=== PATIENT | female | born 1960 | race Caucasian/White ===

== ENCOUNTER 2019-10-27 07:51 | Emergency (ER) | payer OTHER, SELFPAY ==
[2019-10-27 08:00] VITALS: BP 153/85; PULSE 71; RESP 20; TEMP 36.8; O2SAT 96
--- NOTE | 2019-10-27 08:35 | ED.SKABFB ---
HPI - Skin/Abscess/Foreign Bdy General Chief complaint: Skin/Abscess/Foreign Body Stated complaint: FEVER BUMP ON SHOULDER History of Present Illness HPI narrative: 59 y.o. c/o bump on her back, onset 5 days ago, getting larger and now itching and tender when pressure is applied. No pain at rest, just annoying; no drainage. No hx of similar bumps in the past or MRSA. Denies feeling a bump in this area in the past. This AM her face feels warm and she has minor nausea. Normal temp. at home. Related Data Home Medications Medication Instructions Recorded Confirmed amlodipine 5 mg PO BID 07/26/19 07/26/19 aspirin 81 mg PO DAILY 07/26/19 07/26/19 atorvastatin 40 mg PO DAILY 07/26/19 07/26/19 escitalopram oxalate 20 mg PO DAILY 07/26/19 07/26/19 isosorbide mononitrate 30 mg PO DAILY 07/26/19 07/26/19 metformin 500 mg PO DAILY 07/26/19 07/26/19 omeprazole 40 mg PO DAILY 07/26/19 07/26/19 Allergies Allergy/AdvReac Type Severity Reaction Status Date / Time celecoxib Allergy Unknown Verified 02/15/14 08:51 Sulfa (Sulfonamide Allergy Unknown Verified 09/04/18 02:14 Antibiotics) Review of Systems Constitutional: Constitutional: Reports no additional constitutional complaints ENT: Comments: denies rhinorhea or sore throat Cardiovascular: Cardiovascular: Denies chest pain Respiratory: Respiratory: Denies cough Gastrointestinal: Gastrointestinal: Denies abdominal pain, Denies diarrhea and Denies vomiting Musculoskeletal: Comments: chronic finger joint, knee and back pain. Nothing new. Integumentary/Breasts: Skin/Breast: Denies rash Neurologic: Comments: no new headaches. 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 Left posterior chest tender 3x2 cm nodule. Minor fluctuance) Full body images: 1. 3/x cm pink, raised area with a peripheral small dimple. Course Course Emergency Course: DDX of abscess vs Ruptured epidermal inclusion cyst was discussed. Patient agreed to having aspiration. Overlying skin test x2 with 1% with epi. ; 18 gauge inserted. Aspirated 0.2 mL of purulence fluid. Discussed option of incision and drainage versus allowing lesion to progress. She opted for the former. See procedure note. 15. Blade used to open a 1.5 cm incision. I entered a fluid pocket. Approximately 0.2 mL of purulent fluid expressed from wound . Fragments of epidermal inclusion cyst wall were identified. Wound was irrigated with 20 mL of saline and a dressing applied. There was minimal Vital Signs Vital signs: Vital Signs Temperature 36.8 C 10/27/19 08:00 Pulse Rate 71 10/27/19 08:00 Respiratory Rate 20 10/27/19 08:00 Blood Pressure 153/85 H 10/27/19 08:00 Pulse Oximetry 96 10/27/19 08:00 Temperature 36.8 C 10/27/19 08:00 Pulse Rate 71 10/27/19 08:00 Respiratory Rate 20 10/27/19 08:00 Blood Pressure 153/85 H 10/27/19 08:00 Pulse Oximetry 96
[2019-10-27] MEDS: ACETAMINOPHEN 325 MG TABLET 650 MG PO (08:42)
[2019-10-27] MEDS: LIDO 1%/EPINEPHRINE 1:100,000 20 ML VIAL INFILTRATE (08:45)
== END 2019-10-27 09:16 | disposition home or self-care (01) ==
LOC: CHSED 07:55
PROVIDERS: Emergency Provider Family Medicine; PCP Physician Assistant
DX: L72.9 Follicular cyst of the skin and subcutaneous tissue, unspecified (principal)
CPT/HCPCS: 10160; 99282; A9270

== ENCOUNTER 2019-11-13 13:47 | Emergency (ER) | payer OTHER, SELFPAY ==
[2019-11-13] VITALS (7 sets, daily range): BP systolic 136–182; BP diastolic 69–86; PULSE 63–94; RESP 14–96; TEMP 36.8–36.9; O2SAT 17–100
--- NOTE | ~2019-11-13 | XR_ITS ---
EXAMINATION: XR shoulder LT min 2V DATE: 11/13/2019 14:54 INDICATION: Left shoulder pain TECHNIQUE: AP internally and externally rotated, AP oblique externally rotated and transscapular Y vi ews of the left shoulder were obtained. COMPARISON: None FINDINGS: Normal alignment. No fracture. Mild glenohumeral osteoarthritis. Acromioclavicular joint is normal. Soft tissues are unremarkable. As well as portions of the lungs are clear. IMPRESSION: Mild glenohumeral osteoarthritis. No acute osseous abnormality. Reviewed, dictated and finalized at location A. BUILDER
--- NOTE | ~2019-11-13 | XR_ITS ---
EXAMINATION:XR cervical spine 4-5V DATE: 11/13/2019 14:54 INDICATION: left-sided neck pain and posterior left shoulder pain. TECHNIQUE: AP, lateral, lateral swimmers and odontoid views of the cervical spine are provided. COMPARISON: Cervical spine MRI dated 06/27/2018 FINDINGS: Alignment is normal. Odontoid is intact. Normal atlantoaxial interval. Vertebral body heights are no rmal. Disc heights are normal. Mild to moderate multilevel cervical facet osteoarthritis. Patient is edentulous. Prevertebral soft tissues are normal. Visualized apices of the lungs are clear. IMPRESSION: 1. Multilevel mild to moderate cervical facet osteoarthritis. Reviewed, dictated and finalized at location A. ICK WORKER
--- NOTE | 2019-11-13 14:01 | ECG_ITS ---
Measurements Intervals [place] Rate: 82 P: 50 MI: 153 QRS: 31 QRSD: 94 T: 50 QT: 396 QTc: 465 Interpretive Statements SINUS RHYTHM DELAYED PRECORDIAL R/S TRANSITION BORDERLINE ECG Electronically Signed On 11-13-2019 14:34:56 [employer] EXPLORATION TECHNICIAN by Medardo Thacker D.O.
--- NOTE | 2019-11-13 14:07 | ED.GENADULT ---
HPI - General Adult General Chief complaint: Extremity Injury, Upper Stated complaint: L shoulder pain Time Seen by Provider: 11/13/19 14:06 Source: patient and RN notes reviewed Mode of arrival: ambulatory Limitations: no limitations History of Present Illness HPI narrative: Pt is a 59 y/o female with a Hx of CAD, who presents to the ED with c/o waxing and waning lt posterior shoulder pain starting 2 days ago. She notes that her pain intermittently aggravates into a sharp pain, and states that her pain radiates down her lt arm as well as into her lt trapezius. Pt notes that she has tried taking Tylenol for her pain, but denies having any relief. She currently denies any CP, cough, rhinorrhea, vomiting, or diarrhea. Pt rates her pain at 4/10 normally, but states that her pain is a 10/10 when it becomes sharp. MD complaint: Shoulder Pain Onset (ago): day(s) (2) Location: left (lt posterior shoulder) Radiation: proximal (lt trapezius) and distal (down lt arm) Quality: sharp Pain Consistency: colicky Relieving factors: none Associated symptoms: denies other symptoms Related Data Home Medications Medication Instructions Recorded Confirmed amlodipine 5 mg PO BID 07/26/19 10/27/19 aspirin 81 mg PO DAILY 07/26/19 10/27/19 atorvastatin 40 mg PO DAILY 07/26/19 10/27/19 escitalopram oxalate 20 mg PO DAILY 07/26/19 10/27/19 isosorbide mononitrate 30 mg PO DAILY 07/26/19 10/27/19 metformin 500 mg PO DAILY 07/26/19 10/27/19 omeprazole 40 mg PO DAILY 07/26/19 10/27/19 Allergies Allergy/AdvReac Type Severity Reaction Status Date / Time celecoxib Allergy Severe Anaphylactic Verified 11/13/19 13:51 Shock Sulfa (Sulfonamide Allergy Severe Anaphylaxis Verified 11/13/19 13:51 Antibiotics) Review of Systems Review of Systems: All systems reviewed & are unremarkable except as noted in HPI and below Constitutional: Constitutional: Denies chills, Denies fever(s), Denies headache(s) and Denies weakness ENT: Denies nasal discharge Cardiovascular: Cardiovascular: Denies chest pain Respiratory: Respiratory: Denies cough and Denies dyspnea Gastrointestinal: Gastrointestinal: Denies abdominal pain, Denies diarrhea, Denies nausea and Denies vomiting Musculoskeletal: Musculoskeletal: Reports arthralgias (lt posterior shoulder pain radiating into lt trapezius and down lt arm) Neurologic: Denies headache(s) and Denies weakness PMFSH Past Medical History Medical History Anxiety Asthma Bronchitis CAD (coronary artery disease) Degenerative arthritis of finger Depression Diabetes 1.5, managed as type 2 GERD (gastroesophageal reflux disease) HLD (hyperlipidemia) Hypertension Pneumonia Spinal stenosis of lumbar region Surgical History Surgical History H/O right wrist surgery History of appendectomy Hx of left knee surgery Social History Social History Smoking status: Current every day smoker Alcohol intake: never 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 identity (if verbalized by the patient): Female Exam Const: General: no acute distress and well developed Orientation/consciousness: oriented to person, oriented to place, oriented to time and patient oriented x3 HENMT: Head: normocephalic Ears: external ears normal General nose exam: Normal external nose present Neck: Neck: normal visual inspection Chest: Chest palpation & inspection: normal inspection of the chest and no tenderness Resp: Effort & Inspection: normal respiratory effort Auscultation: clear to auscultation bilaterally Cardio: Rate: regular rate Rhythm: regular rhythm GI: GI Palp: No abdominal tenderness and Yes Soft to palpation Skin: General skin exam: normal color and turgor normal Neuro: General: oriented to person, oriented to place, oriented to time an
[2019-11-13] MEDS: CYCLOBENZAPRINE HCL 10 MG TABLET PO (14:21)
[2019-11-13 14:39] LABS: Basophils Absolute Auto 0.1 K/mm3 (0.0-0.1); Basophils Percent Auto 0.9 % (0.2-1.2); Eosinophils Absolute Auto 0.1 K/mm3 (0-0.3); Eosinophils Percent Auto 1.3 % (0-4.4); Hematocrit 43.7 % (37.0-47.0); Hemoglobin 14.3 g/dL (12.0-15.0); Immature Granulocyte Absolute 0.02 K/mm3 (0.00-0.031); Immature Granulocyte Percent A 0.2 % (0-0.5); Lymphocytes Absolute Auto 3.88 K/mm3 (0.9-3.2); Lymphocytes Percent Auto 38.3 % (18.3-44.2); Mean Corpuscular HGB Conc 32.7 g/dl (32-36); Mean Corpuscular Hemoglobin 29.1 pg (26-34); Monocytes Absolute Auto 0.8 K/mm3 (0.1-0.6); Monocytes Percent Auto 7.9 % (2.6-8.5); Neutrophils Absolute Auto 5.2 K/mm3 (1.3-6.7); Neutrophils Percent Auto 51.4 % (45.5-73.1); Platelet Count Result 354 k/mm3 (150-375); Red Blood Count 4.91 M/mm3 (4.2-5.4); Red Cell Distribution Width 13.7 % (11.5-14.5); White Blood Count 10.1 K/mm3 (4.5-10.0)
[2019-11-13 14:50] LABS: Blood Urea Nitrogen 13 mg/dL (7-17); Calcium 9.3 mg/dL (8.4-10.2); Carbon Dioxide 26 mmol/L (22-30); Chloride 104 mmol/L (98-107); Estimated CRCL calculation 87 ml/min; Estimated Glomerular Filt Rate > 60; Glucose 245 mg/dL (65-105); Potassium 3.8 mmol/L (3.4-5.0); Sodium 138 mmol/L (137-145)
[2019-11-13 15:02] LABS: Troponin I < 0.012 ng/mL (0.000-0.034)
--- NOTE | 2019-11-13 17:02 | PC.NURSE ---
TECH AT BEDSIDE DRAWING 3 HOUR TROP.
--- NOTE | 2019-11-13 17:34 | PC.NURSE ---
REPORT GIVEN TO RINKU AT THIS TIME WHO HAS ASSUMED PT CARE.
[2019-11-13 17:35] LABS: Troponin I < 0.012 ng/mL (0.000-0.034)
== END 2019-11-13 18:00 | disposition home or self-care (01) ==
PROVIDERS: Emergency Provider Emergency Medicine; PCP Physician Assistant
DX: M25.512 Pain in left shoulder (principal); I25.10 Atherosclerotic heart disease of native coronary artery without angina pectoris; F41.9 Anxiety disorder, unspecified; J45.909 Unspecified asthma, uncomplicated; F32.9 Major depressive disorder, single episode, unspecified; K21.9 Gastro-esophageal reflux disease without esophagitis; E78.5 Hyperlipidemia, unspecified; I10 Essential (primary) hypertension; F17.200 Nicotine dependence, unspecified, uncomplicated; E13.9 Other specified diabetes mellitus without complications; Z79.84 Long term (current) use of oral hypoglycemic drugs; M19.012 Primary osteoarthritis, left shoulder; M47.812 Spondylosis without myelopathy or radiculopathy, cervical region; R94.31 Abnormal electrocardiogram [ECG] [EKG]
CPT/HCPCS: 36415; 72050; 73030; 80048; 84484; 85025; 93005; 99284; A9270

== ENCOUNTER 2020-01-21 12:26 | Emergency (ER) | payer OTHER, SELFPAY ==
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
[2020-01-21 14:44] VITALS: BP 146/72; PULSE 76; RESP 18; TEMP 36.9; O2SAT 97
--- NOTE | 2020-01-21 15:35 | ED.UPPEXIN ---
HPI - Extremity Injury (Upper) General Chief Complaint: Extremity Injury, Upper Stated Complaint: cut first fingers on left & right hand Source: patient Mode of arrival: ambulatory Limitations: no limitations History of Present Illness HPI narrative: this is a 59-year-old female presents after a glass window fell on her finger tips while she was cleaning causing laceration left index finger, there is a abrasion and hematoma on the right index finger patient is up-to-date with her tetanus currently mild discomfort, and this injury occurred earlier today. complaint: injury to: left and right Other Extremity Injury: Bilateral: fingers Handedness: right Place: home Severity: mild Context: direct blow Related Data Home Medications Medication Instructions Recorded Confirmed amlodipine 5 mg PO BID 07/26/19 10/27/19 aspirin 81 mg PO DAILY 07/26/19 10/27/19 atorvastatin 40 mg PO DAILY 07/26/19 10/27/19 escitalopram oxalate 20 mg PO DAILY 07/26/19 10/27/19 isosorbide mononitrate 30 mg PO DAILY 07/26/19 10/27/19 metformin 500 mg PO DAILY 07/26/19 10/27/19 omeprazole 40 mg PO DAILY 07/26/19 10/27/19 Allergies Allergy/AdvReac Type Severity Reaction Status Date / Time celecoxib Allergy Severe Anaphylactic Verified 11/13/19 13:51 Shock Sulfa (Sulfonamide Allergy Severe Anaphylaxis Verified 11/13/19 13:51 Antibiotics) Review of Systems Review of Systems: All systems reviewed & are unremarkable except as noted in HPI and below PMFSH Past Medical History Medical History Anxiety Asthma Bronchitis CAD (coronary artery disease) Degenerative arthritis of finger Depression Diabetes 1.5, managed as type 2 GERD (gastroesophageal reflux disease) HLD (hyperlipidemia) Hypertension Pneumonia Spinal stenosis of lumbar region Surgical History Surgical History H/O right wrist surgery History of appendectomy Hx of left knee surgery Social History Social History Smoking status: Current every day smoker Alcohol intake: never 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 identity (if verbalized by the patient): Female Exam Const: General: no acute distress and alert Orientation/consciousness: patient oriented x3 HENMT: Head: normal to inspection Eyes: Conjunctivae: conjunctivae normal Pupils: Equal, round and reactive pupils present EOM: EOMs intact bilaterally Neck: Neck: normal visual inspection Lymphatic: no lymphadenopathy noted Chest: Chest palpation & inspection: normal inspection of the chest Resp: Effort & Inspection: normal respiratory effort Cardio: Rate: regular rate Rhythm: regular rhythm GI: GI Palp: Yes Soft to palpation : General: Yes no CVA tenderness Skin: Wounds: wounds noted ( Laceration anterior surface of her left index finger) Neuro: General: patient oriented x3 Extrem: General: normal to inspection Psych: Mental Status: mental status grossly normal Course Vital Signs Vital signs: Vital Signs Temperature 36.9 C 01/21/20 14:44 Pulse Rate 76 01/21/20 14:44 Respiratory Rate 18 01/21/20 14:44 Blood Pressure 146/72 H 01/21/20 14:44 Pulse Oximetry 97 01/21/20 14:44 Temperature 36.9 C 01/21/20 14:44 Pulse Rate 76 01/21/20 14:44 Respiratory Rate 18 01/21/20 14:44 Blood Pressure 146/72 H 01/21/20 14:44 Pulse Oximetry 97 01/21/20 14:44 Procedures Laceration Laceration 1: Date: 01/21/20 Time: 15:47 Site: hand Size (cm): 1 Description: linear ====== Skin Level ====== Skin layer closed with: dermabond ====== Subcutaneous Layer ====== ====== Muscle Layer ====== ====== Tendon Layer ====== Critical Care Time Critical Care Time Critical Care Time: No Discharge Plan Di
== END 2020-01-21 16:04 | disposition home or self-care (01) ==
PROVIDERS: Emergency Provider Emergency Medicine; PCP Family Medicine
DX: S61.211A Laceration without foreign body of left index finger without damage to nail, initial encounter (principal); W22.8XXA Striking against or struck by other objects, initial encounter
CPT/HCPCS: 12001; 73120; 99282; 99284

== ENCOUNTER 2020-05-05 23:25 | Emergency (ER) | payer OTHER, SELFPAY ==
--- NOTE | ~2020-05-05 | CT_ITS ---
EXAMINATION: CTA chest PE protocol EXAM DATE: 05/06/2020 01:12 INDICATION: Elevated d-dimer. TECHNIQUE: Spiral CTA of the chest (pulmonary arteries) was performed with 100 cc Omnipaque 350 intr avenous contrast injection. Images were acquired during the pulmonary arterial phase. Coronal maxi mum intensity projection 3D-reconstructions were created by the technologist on dedicated workstation . Axial, coronal and sagittal reformatted images were reviewed. The dose-length product (DLP) for t his examination was 678.25 mGy-cm. The exposure was tailored according to patient size (auto mA exp osure control), and iterative reconstruction (ASIR) was used as additional dose reduction technique. Comparison is made to prior examination from 12/25/2007. FINDINGS: Pulmonary arteries are well opacified and without intraluminal filling defects. No thora cic aortic dissection. Scattered punctate calcified granulomas. There are no pleural or pericardial effusions. Tracheobronchial tree is patent. There is no mediastinal, hilar or axillary lymphaden opathy. There is no pneumothorax. Heart normal in size. Equivocal mild distal esophageal wall glo ma, mild esophagitis. No evidence of coronary arterial calcification. Upper abdomen is unremarkable. There is mild thoracic spondylosis without osteoblastic or osteolytic lesions identified. IMPRESSION: 1. Unremarkable CT pulmonary examination. Reviewed, dictated and finalized at location A.
--- NOTE | ~2020-05-05 | XR_ITS ---
EXAMINATION: XR chest 1V portable EXAM DATE: 05/06/2020 01:12 INDICATION: Shortness of breath. Chest pain. TECHNIQUE: Portable AP frontal chest x-ray was obtained. Comparison is made to prior examination from 07/26/2019. FINDINGS: The lungs are clear. There are no pleural effusions. The cardiomediastinal silhouette is within normal limits. There is no pneumothorax suspected. The bones and soft tissues are unremarkab le. IMPRESSION: No acute cardiopulmonary findings. Reviewed, dictated and finalized at location A.
--- NOTE | 2020-05-05 23:33 | ECG_ITS ---
Measurements Intervals [place] Rate: 72 P: 44 [place]: 168 QRS: 17 QRSD: 87 T: 46 QT: 425 QTc: 468 Interpretive Statements SINUS RHYTHM LOW QRS VOLTAGE IN PRECORDIAL LEADS BORDERLINE ECG Electronically Signed On 05-06-2020 7:43:00 CDT by Medardo Thacker D.O.
[2020-05-05 23:41] VITALS: BP 117/71; PULSE 67; PULSE 68; RESP 20; TEMP 36.8; O2SAT 97
[2020-05-05 23:53] VITALS: BP 137/76; PULSE 85; RESP 20; O2SAT 97
[2020-05-06] MEDS: NITROGLYCERIN SL 0.4 MG TABLET SUBLINGUAL
[2020-05-06 00:03] VITALS: PULSE 72; RESP 20
[2020-05-06] MEDS: IPRATROPIUM 0.5 MG/ALBUTEROL SULFATE 2.5 MG AMPUL.NEB 3 ML INHALATION (00:03)
[2020-05-06 00:11] VITALS: PULSE 78; RESP 20
[2020-05-06 00:13] LABS: Basophils Absolute Auto 0.07 K/mm3 (0.00-0.10); Basophils Percent Auto 0.6 % (0.0-1.0); Eosinophils Percent Auto 1.7 % (1.0-6.0); Hematocrit 40.1 % (35.0-49.0); Immature Granulocyte Absolute 0.03 K/mm3 (0.00-0.00); Immature Granulocyte Percent A 0.3 % (0.0-0.0); Lymphocytes Absolute Auto 4.84 K/mm3 (1.10-4.50); Lymphocytes Percent Auto 41.3 % (18.0-42.0); Mean Corpuscular HGB Conc 32.4 g/dL (32.0-36.0); Mean Corpuscular Hemoglobin 28.7 pg (27.0-31.0); Mean Corpuscular Volume 88.5 fL (78.0-102.0); Mean Platelet Volume 9.8 fl (9.2-11.8); Monocytes Absolute Auto 0.86 K/mm3 (0.10-0.90); Monocytes Percent Auto 7.3 % (2.0-11.0); Neutrophils Absolute Auto 5.7 K/mm3 (1.7-7.2); Neutrophils Percent Auto 48.8 % (50.0-70.0); Platelet Count Result 350 K/mm3 (150-420); Red Blood Count 4.53 M/mm3 (4.20-5.40); Red Cell Distribution Width 13.8 % (11.6-14.4); White Blood Count 11.7 K/mm3 (4.8-10.8)
[2020-05-06 00:27] LABS: Partial Thromboplastin Time 27.3 SEC (22.3-31.6); Prothrombin Time 9.9 Seconds (9.64-11.0)
[2020-05-06 00:30] LABS: Alanine Aminotransferase 17 U/L (14-59); Alkaline Phosphatase 117 U/L (46-116); Anion Gap 9 mmol/L (8-16); Aspartate Amino Transferase 14 U/L (15-37); Bilirubin,Total 0.3 mg/dL (0.00-1.00); Blood Urea Nitrogen 16 mg/dL (7-18); Calcium 8.8 mg/dL (8.5-10.1); Carbon Dioxide 26 mmol/L (21-32); Chloride 102 mmol/L (98-108); Estimated CRCL calculation 61 ml/min; Estimated Glomerular Filt Rate > 60; Glucose 123 mg/dL (70-99); Lipase 94 U/L (73-393); Osmolality Calculated 286 mOsm/kg (285-295); Potassium 3.7 mmol/L (3.5-5.1); Sodium 137 mmol/L (136-145); Total Protein 7.3 g/dL (6.4-8.2)
[2020-05-06 00:33] LABS: BNP 13.1 pg/mL (0-100); Troponin I < 0.02 ng/mL (0.00-0.056)
--- NOTE | 2020-05-06 00:44 | ED.CHESTPAIN ---
HPI - Chest Pain General Chief Complaint: Chest Pain Stated Complaint: Chest Pain Source: patient Mode of arrival: ambulatory Limitations: no limitations History of Present Illness HPI narrative: This is a 59-year-old female that presents with some sharp left-sided chest pain with radiation into her left arm with some some mild dyspnea with no diaphoresis no nausea vomiting started earlier this evening has been episodic and reproducible with chest palpation. The patient denies any coughing no hemoptysis no nausea vomiting no diarrhea constipation no abdominal pain. Patient has a history of CAD, diabetes hyperlipidemia. Patient is a current smoker. MD complaint: chest heaviness Pertinent past history: coronary artery disease Onset (ago): hour(s) Timing of current episode: episodic Prior episodes: Yes Onset: during rest Pain location: left chest Pain radiation: left arm Severity: mild Quality: heaviness Associated symptoms: dyspnea Related Data Home Medications Medication Instructions Recorded Confirmed amlodipine 5 mg PO BID 07/26/19 05/05/20 aspirin 81 mg PO DAILY 07/26/19 05/05/20 atorvastatin 80 mg PO DAILY 07/26/19 05/05/20 escitalopram oxalate 20 mg PO DAILY 07/26/19 05/05/20 isosorbide mononitrate 30 mg PO DAILY 07/26/19 05/05/20 metformin 500 mg PO DAILY 07/26/19 05/05/20 omeprazole 40 mg PO DAILY 07/26/19 05/05/20 Allergies Allergy/AdvReac Type Severity Reaction Status Date / Time celecoxib Allergy Severe Anaphylactic Verified 11/13/19 13:51 Shock Sulfa (Sulfonamide Allergy Severe Anaphylaxis Verified 11/13/19 13:51 Antibiotics) Review of Systems Review of Systems: All systems reviewed & are unremarkable except as noted in HPI and below PMFSH Social History Social History Smoking status: Current every day smoker Alcohol intake: never 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 identity (if verbalized by the patient): Female Exam Const: General: no acute distress Orientation/consciousness: patient oriented x3 HENMT: Head: normal to inspection and contusion Eyes: Conjunctivae: conjunctivae normal Pupils: Equal, round and reactive pupils present EOM: EOMs intact bilaterally Neck: Neck: normal visual inspection, no lymphadenopathy and no meningeal signs Chest: Chest palpation & inspection: normal inspection of the chest Resp: Effort & Inspection: normal respiratory effort Auscultation: clear to auscultation bilaterally Cardio: Rate: regular rate Rhythm: regular rhythm GI: Auscultation: normal bowel sounds : General: Yes no CVA tenderness Back/Spine/Pelvis: Back: no CVA tenderness Skin: General skin exam: normal color Rashes: no rashes Neuro: General: patient oriented x3, moves all extremities and no meningeal signs Extrem: General: normal to inspection and no pedal edema Psych: Appearance: grossly normal Mental Status: mental status grossly normal Thought content: Yes Normal thought content present Course Course Emergency Course: patient reassessed after receiving sublingual nitroglycerin and pain has subsided somewhat with currently no diaphoresis and no shortness of breath. Vital Signs Vital signs: Vital Signs Temperature 36.8 C 05/05/20 23:41 Pulse Rate 68 05/05/20 23:41 Respiratory Rate 20 05/05/20 23:41 Blood Pressure 117/71 05/05/20 23:41 Pulse Oximetry 97 05/05/20 23:41 Temperature 36.8 C 05/05/20 23:41 Pulse Rate 78 05/06/20 00:11 Respiratory Rate 20 05/06/20 00:11 Blood Pressure 137/76 05/05/20 23:53 Pulse Oximetry 97 05/05/20 23:53 MDM - Chest Pain Lab Data Attestation: I reviewed the patient's lab results. Result diagrams: 05/06/20 00:07 05/06/20 00:07 Labs: Lab Results 05/06/20 05/06/20 05/06/20 Range/Units 00:07 00:07 00:07 WBC 11.7 H (4.8-10.8) K/mm3 RBC 4.53 (4.20-5.40)
[2020-05-06 01:12] VITALS: BP 103/56; PULSE 80; RESP 20; O2SAT 97
[2020-05-06 01:35] VITALS: BP 125/67; PULSE 68; RESP 18; TEMP 36.6; O2SAT 98
== END 2020-05-06 01:46 | disposition home or self-care (01) ==
PROVIDERS: Emergency Provider Emergency Medicine; PCP Family Medicine
DX: R07.89 Other chest pain (principal); J18.9 Pneumonia, unspecified organism; R06.00 Dyspnea, unspecified
CPT/HCPCS: 36415; 71045; 71275; 80053; 83690; 83880; 84484; 85025; 85380; 85610; 85730; 93005; 94640; 99284; A9270; Q9965

== ENCOUNTER 2020-05-30 15:15 | Outpatient (CLI) | payer OTHER, SELFPAY ==
--- NOTE | ~2020-05-30 | XR_ITS ---
EXAMINATION: XR foot LT min 3V DATE: 05/30/2020 15:32 INDICATION: Left foot pain TECHNIQUE: Dorsoplantar, lateral, and 2 oblique views of the left foot were obtained. COMPARISON: 06/04/2016 FINDINGS: The bones are osteopenic which limits the sensitivity for fracture however none is seen. Th ere is [id number] polyarticular osteoarthritis of the interphalangeal joints. Bone alignment is normal. A plantar calcaneal enthesophyte is noted. The soft tissues are unremarkable. IMPRESSION: 1. No acute osseous abnormality. Reviewed, dictated and finalized at location A.
== END 2020-05-30 15:16 | disposition home or self-care (01) ==
LOC: CHSIMG 15:18
PROVIDERS: PCP Physician Assistant; Visit Provider Family Medicine
DX: M79.672 Pain in left foot (principal)
CPT/HCPCS: 73630

== ENCOUNTER 2020-07-20 11:03 | Outpatient (CLI) | payer OTHER, SELFPAY ==
[2020-07-21 14:56] LABS: SARS-CoV-2 RNA PCR Negative
== END 2020-07-20 11:04 | disposition home or self-care (01) ==
LOC: CHSLAB 11:06
PROVIDERS: PCP Physician Assistant; Visit Provider Physician Assistant
DX: Z20.828 Contact with and (suspected) exposure to other viral communicable diseases (principal)
CPT/HCPCS: 87635; C9803; U0003

== ENCOUNTER 2020-10-27 10:16 | Outpatient (CLI) | payer OTHER, SELFPAY ==
[2020-10-27 10:29] LABS: Basophils Absolute Auto 0.07 K/mm3 (0.00-0.10); Basophils Percent Auto 0.7 % (0.0-1.0); Eosinophils Absolute Auto 0.09 K/mm3 (0.02-0.50); Eosinophils Percent Auto 0.8 % (1.0-6.0); Hematocrit 45.4 % (35.0-49.0); Hemoglobin 14.8 g/dL (12.0-15.0); Immature Granulocyte Absolute 0.03 K/mm3 (0.00-0.00); Immature Granulocyte Percent A 0.3 % (0.0-0.0); Lymphocytes Absolute Auto 3.69 K/mm3 (1.10-4.50); Lymphocytes Percent Auto 34.7 % (18.0-42.0); Mean Corpuscular HGB Conc 32.6 g/dL (32.0-36.0); Mean Corpuscular Hemoglobin 29.1 pg (27.0-31.0); Mean Corpuscular Volume 89.2 fL (78.0-102.0); Mean Platelet Volume 9.5 fl (9.2-11.8); Monocytes Absolute Auto 0.72 K/mm3 (0.10-0.90); Monocytes Percent Auto 6.8 % (2.0-11.0); Neutrophils Percent Auto 56.7 % (50.0-70.0); Platelet Count Result 346 K/mm3 (150-420); Red Blood Count 5.09 M/mm3 (4.20-5.40); Red Cell Distribution Width 13.8 % (11.6-14.4); White Blood Count 10.6 K/mm3 (4.8-10.8)
[2020-10-27 10:46] LABS: Hemoglobin A1C 6.4 % (<5.7)
[2020-10-27 10:50] LABS: Creatinine Urine 217.46 mg/dL (40-278)
[2020-10-27 10:52] LABS: MALB Creatinine Ratio 131.1 mg/g (0-30); Microalbumin Urine Random 285.1 mg/L
[2020-10-27 11:09] LABS: Alanine Aminotransferase 21 U/L (14-59); Albumin Level 3.5 g/dL (3.4-5.0); Alkaline Phosphatase 130 U/L (46-116); Anion Gap 9 mmol/L (8-16); Aspartate Amino Transferase 12 U/L (15-37); Bilirubin,Total 0.5 mg/dL (0.00-1.00); Blood Urea Nitrogen 10 mg/dL (7-18); Calcium 9.5 mg/dL (8.5-10.1); Carbon Dioxide 28 mmol/L (21-32); Chloride 102 mmol/L (98-108); Cholesterol 184 mg/dL (0-200); Estimated Glomerular Filt Rate > 60; Glucose 141 mg/dL (70-99); HDL Direct 36 mg/dL (40-60); LDL Cholesterol Calculated 115 mg/dL (<130); Osmolality Calculated 289 mOsm/kg (285-295); Potassium 4.8 mmol/L (3.5-5.1); Sodium 139 mmol/L (136-145); Total Protein 7.4 g/dL (6.4-8.2); Triglycerides 166 mg/dL (0-150)
== END 2020-10-27 10:17 | disposition home or self-care (01) ==
LOC: CHSLAB 10:19
PROVIDERS: PCP Nurse Practitioner Family; Visit Provider Nurse Practitioner Family
DX: E11.9 Type 2 diabetes mellitus without complications (principal); I10 Essential (primary) hypertension; E78.5 Hyperlipidemia, unspecified
CPT/HCPCS: 36415; 80053; 80061; 82043; 83036; 85025

== ENCOUNTER 2020-11-01 15:45 | Outpatient (CLI) | payer OTHER, SELFPAY ==
[2020-11-02] LABS: SARS-CoV-2 RNA PCR Negative
== END 2020-11-01 15:46 | disposition home or self-care (01) ==
LOC: CHSLAB 15:49
PROVIDERS: PCP Nurse Practitioner Family; Visit Provider Nurse Practitioner Family
DX: Z20.822 Contact with and (suspected) exposure to COVID-19 (principal)
CPT/HCPCS: C9803; U0003; U0005

== ENCOUNTER 2020-12-19 08:56 | Emergency (ER) | payer OTHER, SELFPAY ==
--- NOTE | ~2020-12-19 | US_ITS ---
EXAMINATION: US venous doppler [facility] DATE: 12/19/2020 09:48 INDICATION: Left lower limb pain. TECHNIQUE: Grayscale ultrasound images without and with compression and Doppler ultrasound images of the bilateral lower extremity veins were obtained. COMPARISON: None. FINDINGS: The visualized portions of right common femoral vein, profunda (deep) femoral vein, femoral vein, pop liteal vein, peroneal veins, posterior tibial veins, and greater saphenous vein outflow are patent. T here is a moderate-sized Saenz's cyst. The visualized portions of left common femoral vein, profunda femoral vein, femoral vein, popliteal v ein, peroneal veins, posterior tibial veins, and greater saphenous vein outflow are patent. There is a small Saenz's cyst. IMPRESSION: 1. No deep venous thrombosis. 2. Moderate-sized right-sided Saenz's cyst. Small left-sided Saenz's cyst. Reviewed, dictated and finalized at location A.
[2020-12-19 09:05] VITALS: BP 155/84; PULSE 73; RESP 20; TEMP 37; O2SAT 95
--- NOTE | 2020-12-19 10:26 | ED.EXTPRO ---
HPI - Extremity Problem General Chief complaint: Extremity Problem,Nontraumatic Stated complaint: LEG PAIN Time Seen by Provider: 12/19/20 09:15 Source: patient Mode of arrival: ambulatory Limitations: no limitations History of Present Illness HPI Narrative: Patient comes in with pain in left knee, moderately severe, sharp, ongoing since early this am. Activity seems to make it more severe. Nothing at home has made this better or worse. Complaint: extremity pain Onset (ago): hour(s) Pain Consistency: constant Location: left (knee) Severity scale (1-10): 5 Quality: sharp Relieving factors: nothing Exacerbating factors: walking Associated symptoms: denies other symptoms Related Data Home Medications Medication Instructions Recorded Confirmed aspirin 81 mg PO DAILY 07/26/19 12/19/20 isosorbide mononitrate 30 mg PO DAILY 07/26/19 12/19/20 metformin 500 mg PO DAILY 07/26/19 12/19/20 Allergies Allergy/AdvReac Type Severity Reaction Status Date / Time celecoxib Allergy Severe Anaphylactic Verified 11/13/19 13:51 Shock Sulfa (Sulfonamide Allergy Severe Anaphylaxis Verified 11/13/19 13:51 Antibiotics) Review of Systems Constitutional: Constitutional: Reports no additional constitutional complaints Eyes: Eyes: Reports no additional eye complaints ENT: Reports system reviewed and no additional complaints, except as documented Cardiovascular: Cardiovascular: Reports no additional cardiovascular complaints Respiratory: Respiratory: Reports no additional respiratory complaints Gastrointestinal: Gastrointestinal: Reports no additional gastrointestinal complaints Genitourinary: Genitourinary: Reports no additional female genitourinary complaints Musculoskeletal: Musculoskeletal: Reports no additional musculoskeletal complaints Integumentary/Breasts: Skin/Breast: Reports system reviewed and no additional complaints, except as docu Neurologic: Reports system reviewed and no additional complaints, except as documented Psychiatric: Psychiatric: Reports no additional psychiatric complaints Endocrine: Endocrine: Reports no additional endocrine complaints Hematologic/Lymphatic: Hematologic/Lymphatic: Reports no additional hematologic/lymphatic complaints Allergic/Immunologic: Allergic/Immunologic: Reports no additional allergic/immunologic complaints [facility] Past Medical History Medical History Anxiety Asthma Bronchitis CAD (coronary artery disease) Degenerative arthritis of finger Depression Diabetes 1.5, managed as type 2 GERD (gastroesophageal reflux disease) HLD (hyperlipidemia) Hypertension Pneumonia Spinal stenosis of lumbar region Surgical History Surgical History H/O right wrist surgery History of appendectomy Hx of left knee surgery Family History Family History (Updated 12/19/20 @ 20:57 by Sadi Vital MD) Mother Family history non-contributory Social History Social History Smoking status: Current every day smoker Alcohol intake: never 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 identity (if verbalized by the patient): Female Exam Const: General: no acute distress Orientation/consciousness: patient oriented x3 HENMT: Head: normal to inspection Ears: external ears normal and TM's normal bilaterally General nose exam: Normal external nose present Mouth: Yes Normal oral and palatal mucosa present Throat: posterior oropharynx normal Eyes: Conjunctivae: conjunctivae normal Neck: Neck: normal visual inspection Chest: Chest palpation & inspection: normal inspection of the chest Resp: Effort & Inspection: normal respiratory effort Auscultation: clear to auscultation bilaterally Cardio: Rate: regular rate Rhythm: regular rhythm GI: GI Palp: Yes Soft to palpation (nontender) Urinar
[2020-12-19 10:40] VITALS: RESP 17
== END 2020-12-19 10:40 | disposition home or self-care (01) ==
PROVIDERS: Emergency Provider Emergency Medicine; PCP Nurse Practitioner Family
DX: M71.22 Synovial cyst of popliteal space [Baker], left knee (principal); M79.605 Pain in left leg; I25.10 Atherosclerotic heart disease of native coronary artery without angina pectoris; K21.9 Gastro-esophageal reflux disease without esophagitis; E78.5 Hyperlipidemia, unspecified; I10 Essential (primary) hypertension; F17.200 Nicotine dependence, unspecified, uncomplicated
CPT/HCPCS: 93970; 99282; 99284

== ENCOUNTER 2020-12-24 18:15 | Emergency (ER) | payer OTHER, SELFPAY ==
[2020-12-24 18:27] VITALS: BP 181/74; PULSE 71; RESP 20; TEMP 36.2; O2SAT 97
--- NOTE | 2020-12-24 18:33 | ED.SKABFB ---
HPI - Skin/Abscess/Foreign Bdy General Chief complaint: Skin/Abscess/Foreign Body Stated complaint: swelling around injection site Time Seen by Provider: 12/24/20 18:25 Source: patient Mode of arrival: ambulatory Limitations: no limitations History of Present Illness HPI narrative: Patient comes in with complaints of swelling in her left arm where she got her Covid shot. She had her Covid shot a few days ago. Since then her arm has been swelled and tender to touch. It has been indurated and somewhat warm to touch, but has had no erythema. Discomfort has been moderately sever in that deltoid, not relieved by tylenol at home. She denies any fever or chills. She comes in because of ongoing discomfort to that deltoid. Related Data Home Medications Medication Instructions Recorded Confirmed isosorbide mononitrate 30 mg PO DAILY 07/26/19 12/19/20 metformin 500 mg PO DAILY 07/26/19 12/19/20 Allergies Allergy/AdvReac Type Severity Reaction Status Date / Time celecoxib Allergy Severe Anaphylactic Verified 12/24/20 18:34 Shock Sulfa (Sulfonamide Allergy Severe Anaphylaxis Verified 12/24/20 18:34 Antibiotics) Review of Systems Constitutional: Constitutional: Reports no additional constitutional complaints Eyes: Eyes: Reports no additional eye complaints ENT: Reports system reviewed and no additional complaints, except as documented Cardiovascular: Cardiovascular: Reports no additional cardiovascular complaints Respiratory: Respiratory: Reports no additional respiratory complaints Gastrointestinal: Gastrointestinal: Reports no additional gastrointestinal complaints Genitourinary: Genitourinary: Reports no additional female genitourinary complaints Musculoskeletal: Musculoskeletal: Reports no additional musculoskeletal complaints Integumentary/Breasts: Skin/Breast: Reports system reviewed and no additional complaints, except as docu Neurologic: Reports system reviewed and no additional complaints, except as documented Psychiatric: Psychiatric: Reports no additional psychiatric complaints Endocrine: Endocrine: Reports no additional endocrine complaints Hematologic/Lymphatic: Hematologic/Lymphatic: Reports no additional hematologic/lymphatic complaints Allergic/Immunologic: Allergic/Immunologic: Reports no additional allergic/immunologic complaints [facility] Past Medical History Medical History Anxiety Asthma Bronchitis CAD (coronary artery disease) Degenerative arthritis of finger Depression Diabetes 1.5, managed as type 2 GERD (gastroesophageal reflux disease) HLD (hyperlipidemia) Hypertension Pneumonia Spinal stenosis of lumbar region Surgical History Surgical History H/O right wrist surgery History of appendectomy Hx of left knee surgery Family History Family History Mother Family history non-contributory Social History Social History Smoking status: Current every day smoker Alcohol intake: never 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 identity (if verbalized by the patient): Female Exam Const: General: no acute distress Orientation/consciousness: patient oriented x3 HENMT: Head: normal to inspection Ears: external ears normal and TM's normal bilaterally Face and sinus: normal facial exam Mouth: Yes Normal oral and palatal mucosa present Throat: posterior oropharynx normal Eyes: Conjunctivae: conjunctivae normal Neck: Neck: normal visual inspection Chest: Chest palpation & inspection: normal inspection of the chest Resp: Effort & Inspection: normal respiratory effort Auscultation: clear to auscultation bilaterally Cardio: Rate: regular rate Rhythm: regular rhythm GI: GI Palp: Yes Soft to palpation (nontender) Back/Spine/Pelvis
== END 2020-12-24 18:47 | disposition home or self-care (01) ==
PROVIDERS: Emergency Provider Emergency Medicine; PCP Nurse Practitioner Family
DX: R60.0 Localized edema (principal); T50.905A Adverse effect of unspecified drugs, medicaments and biological substances, initial encounter
CPT/HCPCS: 99283

== ENCOUNTER 2021-03-25 22:54 | Emergency (ER) | payer SELFPAY ==
[2021-03-25 23:15] VITALS: BP 166/77; PULSE 73; RESP 20; TEMP 37.1; O2SAT 96
[2021-03-25] MEDS: IBUPROFEN 400 MG TABLET 800 MG PO (23:35)
--- NOTE | 2021-03-25 23:35 | ED.NECK ---
HPI - Neck Pain/Injury General Chief Complaint: Neck Pain/Injury Stated Complaint: Bump on back of neck /headache Time Seen by Provider: 03/25/21 23:17 Source: patient Mode of arrival: ambulatory Limitations: no limitations History of Present Illness HPI Narrative: chronic posterior neck bumps, more painful x this PM. no acute redness or drainage MD complaint: neck pain Onset (ago): hour(s) (3) Severity: mild Quality: dull Duration: constant Relieving factors: medication OTC/prescribed Treatments prior to arrival: none Related Data Home Medications Medication Instructions Recorded Confirmed isosorbide mononitrate 30 mg PO DAILY 07/26/19 03/25/21 metformin 500 mg PO DAILY 07/26/19 03/25/21 ezetimibe 10 mg PO DAILY 03/25/21 03/25/21 Allergies Allergy/AdvReac Type Severity Reaction Status Date / Time celecoxib Allergy Severe Anaphylactic Verified 03/14/21 11:32 Shock Sulfa (Sulfonamide Allergy Severe Anaphylaxis Verified 03/14/21 11:32 Antibiotics) Review of Systems Review of Systems: All systems reviewed & are unremarkable except as noted in HPI and below Constitutional: Constitutional: Reports as per HPI and Reports no additional constitutional complaints Eyes: Eyes: Reports as per HPI and Reports no additional eye complaints ENT: Reports system reviewed and no additional complaints, except as documented and Reports as per HPI Cardiovascular: Cardiovascular: Reports as per HPI and Reports no additional cardiovascular complaints Respiratory: Respiratory: Reports as per HPI and Reports no additional respiratory complaints Gastrointestinal: Gastrointestinal: Reports as per HPI and Reports no additional gastrointestinal complaints Genitourinary: Genitourinary: Reports no additional female genitourinary complaints and Reports as per HPI Musculoskeletal: Musculoskeletal: Reports no additional musculoskeletal complaints and Reports as per HPI Integumentary/Breasts: Skin/Breast: Reports system reviewed and no additional complaints, except as docu and Reports as per HPI Neurologic: Reports system reviewed and no additional complaints, except as documented and Reports as per HPI Psychiatric: Psychiatric: Reports no additional psychiatric complaints and Reports as per HPI Endocrine: Endocrine: Reports no additional endocrine complaints and Reports as per HPI Hematologic/Lymphatic: Hematologic/Lymphatic: Reports no additional hematologic/lymphatic complaints and Reports as per HPI Allergic/Immunologic: Allergic/Immunologic: Reports no additional allergic/immunologic complaints and Reports as per HPI [facility] Past Medical History Medical History Anxiety Asthma Bronchitis CAD (coronary artery disease) Degenerative arthritis of finger Depression Diabetes 1.5, managed as type 2 GERD (gastroesophageal reflux disease) HLD (hyperlipidemia) Hypertension Pneumonia Spinal stenosis of lumbar region Surgical History Surgical History H/O right wrist surgery History of appendectomy Hx of left knee surgery Family History Family History Mother Family history non-contributory Social History Social History Smoking status: Current every day smoker Alcohol intake: never 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
[2021-03-25 23:45] VITALS: BP 154/76; PULSE 74; RESP 18; O2SAT 97
== END 2021-03-25 23:52 | disposition home or self-care (01) ==
PROVIDERS: Emergency Provider Emergency Medicine; PCP Nurse Practitioner Family
DX: L72.8 Other follicular cysts of the skin and subcutaneous tissue (principal)
CPT/HCPCS: 99283; A9270

== ENCOUNTER 2021-03-27 12:18 | Outpatient (CLI) | payer SELFPAY ==
--- NOTE | ~2021-03-27 | US_ITS ---
EXAMINATION: US soft tissue head and neck EXAM DATE: 03/27/2021 12:45 INDICATION: [id number] - Cyst of neck. Symptoms 2 weeks. TECHNIQUE: Multiple grayscale and Doppler images of the neck posterior palpable abnormality were obta ined (by a technologist who performed the scan) and subsequently reviewed. There is no prior study f or comparison. FINDINGS: Scanning in the posterior neck area of concern demonstrates a complex cystic subcutaneous region whic h appears to have a thick wall. Could only cystic central component measuring 1.0 x 0.5 x 0.6 cm. The a sebaceous cyst but clinical correlation recommended. No hypervascularity surrounding this. IMPRESSION: Small complex cystic subcutaneous lesion posterior neck area of concern. Could be sebaceo us cyst. Please clinically correlate and clinical follow-up recommended. If this enlarges recommend f ollow-up ultrasound or CT neck with contrast. Reviewed, dictated and finalized at location A. IMPRESSION: Small complex cystic subcutaneous lesion posterior neck area of con cern. Could be sebaceous cyst. Please clinically correlate and clinical follow- up recommended. If this enlarges recommend follow-up ultrasound or CT neck with contrast.
== END 2021-03-27 12:19 | disposition home or self-care (01) ==
LOC: CHSIMG 12:20
PROVIDERS: PCP Nurse Practitioner Family; Visit Provider Nurse Practitioner Family
DX: R22.1 Localized swelling, mass and lump, neck (principal)
CPT/HCPCS: 76536

== ENCOUNTER 2021-04-05 11:29 | Outpatient (CLI) | payer SELFPAY ==
[2021-04-05 11:51] LABS: Hematocrit 45.2 % (35.0-49.0); Hemoglobin 14.5 g/dL (12.0-15.0); Mean Corpuscular HGB Conc 32.1 g/dL (32.0-36.0); Mean Corpuscular Hemoglobin 28.9 pg (27.0-31.0); Mean Corpuscular Volume 90.2 fL (78.0-102.0); Mean Platelet Volume 9.7 fl (9.2-11.8); Platelet Count Result 358 K/mm3 (150-420); Red Blood Count 5.01 M/mm3 (4.20-5.40); Red Cell Distribution Width 13.4 % (11.6-14.4); White Blood Count 11.1 K/mm3 (4.8-10.8)
[2021-04-05 12:29] LABS: Band Neutrophils Percent 0 % (0-6); Eosinophils Absolute Manual 0.11 K/mm3 (0.02-0.5); Eosinophils Percent Manual 1 % (1-6); Lymphocytes Absolute Manual 4.44 K/mm3 (1.1-4.5); Lymphocytes Percent Manual 40 % (18-44); Monocytes Absolute Manual 0.55 K/mm3 (0.1-0.90); Monocytes Percent Manual 5 % (3-9); Neutrophils Absolute Manual 5.99 K/mm3 (1.7-7.2); Neutrophils Percent Manual 54 % (46-73); Platelet Estimate Adequate (Adequate); Total Cells Counted 100
[2021-04-05 12:55] LABS: Hemoglobin A1C 7.9 % (<5.7)
[2021-04-05 12:59] LABS: Alanine Aminotransferase 24 U/L (14-59); Albumin Level 3.5 g/dL (3.4-5.0); Alkaline Phosphatase 124 U/L (46-116); Anion Gap 10 mmol/L (8-16); Aspartate Amino Transferase 14 U/L (15-37); Bilirubin,Total 0.6 mg/dL (0.00-1.00); Blood Urea Nitrogen 13 mg/dL (7-18); Calcium 9.4 mg/dL (8.5-10.1); Carbon Dioxide 27 mmol/L (21-32); Chloride 104 mmol/L (98-108); Estimated Glomerular Filt Rate > 60; Glucose 113 mg/dL (70-99); Osmolality Calculated 293 mOsm/kg (285-295); Potassium 5.1 mmol/L (3.5-5.1); Sodium 141 mmol/L (136-145); Total Protein 7.2 g/dL (6.4-8.2)
== END 2021-04-05 11:30 | disposition home or self-care (01) ==
LOC: CHSLAB 11:33
PROVIDERS: PCP Nurse Practitioner Family; Visit Provider Nurse Practitioner Family
DX: E13.9 Other specified diabetes mellitus without complications (principal); R19.5 Other fecal abnormalities
CPT/HCPCS: 36415; 80053; 83036; 85025

== ENCOUNTER 2021-04-06 08:28 | Outpatient (CLI) | payer SELFPAY | END 2021-04-06 08:29 | disposition home or self-care (01) | LOC: CHSLAB 08:30 | PROVIDERS: PCP Nurse Practitioner Family; Visit Provider Nurse Practitioner Family | DX: R19.5 Other fecal abnormalities (principal) | CPT/HCPCS: 87045; 87046; 87177; 87209; 87427 ==

== ENCOUNTER 2021-04-14 11:08 | Emergency (ER) | payer SELFPAY ==
--- NOTE | ~2021-04-14 | XR_ITS ---
XR shoulder LT min 2V DATE: 04/14/2021 12:24 INDICATION: Left shoulder pain for 2 days. Limited range of motion. No acute injury. TECHNIQUE: 5 views COMPARISON: 11/13/2019 left shoulder FINDINGS: There is moderate left glenohumeral osteoarthritis. Osteopenia. No fracture, dislocation, periosteal reaction or bone destruction or abnormal soft tissue calcificati on of the right shoulder. IMPRESSION: Glenohumeral osteoarthritis Osteopenia Reviewed, dictated and finalized at location B.
[2021-04-14 11:29] VITALS: BP 175/86; PULSE 77; RESP 16; TEMP 36.6; O2SAT 97
--- NOTE | 2021-04-14 11:38 | PC.NURSE ---
Dr santamaria speaking with Dr. Topete o/c ophthalmology at [facility]
--- NOTE | 2021-04-14 11:57 | ED.UPPEXIN ---
HPI - Extremity Injury (Upper) General Chief Complaint: Extremity Injury, Upper Stated Complaint: lt shoulder pain Time Seen by Provider: 04/14/21 11:31 Source: patient and RN notes reviewed Mode of arrival: ambulatory Limitations: no limitations History of Present Illness HPI narrative: sudden left shoulder pain x 2 days. no acute trauma. Onset (ago): day(s) (2) Other Extremity Injury: Left: shoulder Other injuries: none Place: home Severity scale (1-10): 7 Relieving factors: immobilization Exacerbating factors: movement of extremity Associated symptoms: denies other symptoms Related Data Home Medications Medication Instructions Recorded Confirmed isosorbide mononitrate 30 mg PO DAILY 07/26/19 04/14/21 metformin 500 mg PO DAILY 07/26/19 04/14/21 ezetimibe 10 mg PO DAILY 03/25/21 04/14/21 aspirin 81 mg tablet,delayed 81 mg PO DAILY 04/05/21 04/14/21 release Allergies Allergy/AdvReac Type Severity Reaction Status Date / Time celecoxib Allergy Severe Anaphylactic Verified 04/05/21 08:18 Shock Sulfa (Sulfonamide Allergy Severe Anaphylaxis Verified 04/05/21 08:18 Antibiotics) Review of Systems Review of Systems: All systems reviewed & are unremarkable except as noted in HPI and below Constitutional: Constitutional: Reports as per HPI and Reports no additional constitutional complaints Eyes: Eyes: Reports as per HPI and Reports no additional eye complaints ENT: Reports system reviewed and no additional complaints, except as documented and Reports as per HPI Cardiovascular: Cardiovascular: Reports as per HPI and Reports no additional cardiovascular complaints Respiratory: Respiratory: Reports as per HPI and Reports no additional respiratory complaints Gastrointestinal: Gastrointestinal: Reports as per HPI and Reports no additional gastrointestinal complaints Genitourinary: Genitourinary: Reports no additional female genitourinary complaints and Reports as per HPI Musculoskeletal: Musculoskeletal: Reports no additional musculoskeletal complaints, Reports as per HPI and Reports arthralgias Comments: left shoulder pain Integumentary/Breasts: Skin/Breast: Reports system reviewed and no additional complaints, except as docu and Reports as per HPI Neurologic: Reports system reviewed and no additional complaints, except as documented and Reports as per HPI Psychiatric: Psychiatric: Reports no additional psychiatric complaints and Reports as per HPI Endocrine: Endocrine: Reports no additional endocrine complaints and Reports as per HPI Hematologic/Lymphatic: Hematologic/Lymphatic: Reports no additional hematologic/lymphatic complaints and Reports as per HPI Allergic/Immunologic: Allergic/Immunologic: Reports no additional allergic/immunologic complaints and Reports as per HPI [facility] Past Medical History Medical History Anxiety Asthma Bronchitis CAD (coronary artery disease) Degenerative arthritis of finger Depression Diabetes 1.5, managed as type 2 GERD (gastroesophageal reflux disease) HLD (hyperlipidemia) Hypertension Pneumonia Spinal stenosis of lumbar region Surgical History Surgical History H/O right wrist surgery History of appendectomy Hx of left knee surgery Family History Family History Mother Family history non-contributory Social History Social History Smoking status: Current every day smoker Alcohol intake: never 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
[2021-04-14] MEDS: KETOROLAC (*BKC) 60 MG/2 ML VIAL IM (12:22)
[2021-04-14 12:55] VITALS: BP 156/67; PULSE 71; RESP 14; O2SAT 94
== END 2021-04-14 12:59 | disposition home or self-care (01) ==
PROVIDERS: Emergency Provider Emergency Medicine; PCP Nurse Practitioner Family
DX: M13.812 Other specified arthritis, left shoulder (principal)
CPT/HCPCS: 73030; 96372; 99283; A4565; J1885

== ENCOUNTER 2021-05-01 07:59 | Outpatient (RCR) | payer OTHER, SELFPAY ==
--- NOTE | 2021-05-01 09:05 | PTOPEVAL ---
Thank you for referring Vivian Hyde to [facility].? The patient is scheduled to be seen for therapy? ____x/week for ___ weeks. Please review, sign, date and return this plan of care LESLIE. I agree with and certify that the following plan of care is medically necessary. Referring Physician Date Admitting Provider: Attending Provider: Chela Ramsey NP Referring Provider: *PT Outpatient Evaluation Start: 05/01/21 08:02 Freq: Status: Active Protocol: Document 05/01/21 08:02 ACR (Rec: 05/01/21 09:05 ACR [id number]) Therapy Assessment Status Assessment Status Assessment Status Evaluation Outpatient Past Medical History Neurological History Hx Transient Ischemic Attacks (TIA) Yes Cardiovascular History Hx Coronary Artery Disease Yes Hx Hypercholesterolemia Yes Hx Hypertension Yes Gastrointestinal History Hx Appendectomy Yes Musculoskeletal History Hx Arthritis Yes Hx Orthopedic Surgery Yes: knee Endocrine History Hx Diabetes Yes Reproductive History Hx Post Menopausal Yes Psychosocial History Hx Anxiety Yes Evaluation Information Problem Diagnosis L shoulder pain Onset 04/10/21 Subjective Information Patient states that her Query Text:As Reported By Patient/ shoulder started to bother her Family more recently. She states that she is unable to reach out to her side and behind her . She takes tramadol as needed and mainly at night because she is unable to sleep through the night. She states that she occasionally has tingling down the arm. The patient states that she has difficulty with clasping her bra, cleaning, lifting, reaching overhead, and driving. The patient states that her goal for therapy is to be able to use her arm without it hurting . 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
== END 2021-05-05 16:16 | disposition home or self-care (01) ==
LOC: CHSPT 07:59
PROVIDERS: PCP Nurse Practitioner Family; Visit Provider Nurse Practitioner Family
DX: M25.512 Pain in left shoulder (principal); M19.012 Primary osteoarthritis, left shoulder
CPT/HCPCS: 97014; 97110; 97161; G0283

== ENCOUNTER 2021-05-11 14:00 | Outpatient (CLI) | payer OTHER, SELFPAY ==
[2021-05-11 14:40] LABS: SARS-CoV-2 Ag Negative (Negative)
== END 2021-05-11 14:01 | disposition home or self-care (01) ==
LOC: CHSLAB 14:04
PROVIDERS: PCP Nurse Practitioner Family; Visit Provider Nurse Practitioner Family
DX: R53.83 Other fatigue (principal); Z20.822 Contact with and (suspected) exposure to COVID-19
CPT/HCPCS: 87426; C9803

== ENCOUNTER 2021-08-07 00:06 | Emergency (ER) | payer SELFPAY ==
[2021-08-07] VITALS (9 sets, daily range): BP systolic 128–182; BP diastolic 59–97; PULSE 67–87; RESP 15–18; TEMP 36.8; O2SAT 92–97
--- NOTE | ~2021-08-07 | CT_ITS ---
EXAMINATION: CTA chest PE protocol EXAM DATE: 08/07/2021 02:26 INDICATION: Chest heaviness. TECHNIQUE: Spiral CTA of the chest (pulmonary arteries) was performed with 100 cc Omnipaque 350 intr avenous contrast injection. Images were acquired during the pulmonary arterial phase. Coronal maxi mum intensity projection 3D-reconstructions were created by the technologist on dedicated workstation . Axial, coronal and sagittal reformatted images were reviewed. The dose-length product (DLP) for t his examination was 776.20 mGy-cm. The exposure was tailored according to patient size (auto mA exp osure control), and iterative reconstruction (ASIR) was used as additional dose reduction technique. Comparison is made to prior examination from 05/06/2020. FINDINGS: Pulmonary arteries are well opacified and without intraluminal filling defects. No thora cic aortic dissection. There are scattered small calcified granulomata. No suspicious pulmonary nodu les. There are no pleural or pericardial effusions. Tracheobronchial tree is patent. There is no mediastinal, hilar or axillary lymphadenopathy. There is no pneumothorax. Heart normal in size. No evidence of coronary arterial calcification. Upper abdomen is unremarkable. There is mild tho racic spondylosis without osteoblastic or osteolytic lesions identified. IMPRESSION: 1. No pulmonary emboli or acute cardiopulmonary findings. 2. Scattered lung granulomata unchanged. Reviewed, dictated and finalized at location A. ERY INSPECTOR
--- NOTE | 2021-08-07 00:11 | ECG_ITS ---
Measurements Intervals [place] Rate: 85 P: 63 [place]: 160 QRS: 5 QRSD: 90 T: 51 QT: 400 QTc: 477 Interpretive Statements SINUS RHYTHM BORDERLINE R WAVE PROGRESSION, ANTERIOR LEADS BASELINE ARTIFACT- I, II, III, AVR, AVL, AVF BORDERLINE ECG Electronically Signed On 08-07-2021 7:01:03 RESOURCE ANALYST by Medardo Thacker D.O.
--- NOTE | 2021-08-07 00:13 | ED.CHESTPAIN ---
HPI - Chest Pain General Source: patient Mode of arrival: ambulatory Limitations: no limitations History of Present Illness HPI narrative: 60-year-old woman with a history of coronary artery disease, type 2 diabetes, hyperlipidemia and smoking comes in today complaining of 15 minutes of chest pressure. Patient states she was at home and at rest when it started. She denies shortness of breath, nausea, vomiting, lightheadedness, shortness of breath and sweating. Does not radiate to her neck shoulder or back. Patient is also having a pain and itching and a spot in her right upper back or shoulder blade. It has been there for several days. MD complaint: chest pain Pertinent past history: coronary artery disease Onset (ago): minute(s) (15) Timing of current episode: constant Prior episodes: Yes Onset: during rest Pain location: substernal Pain radiation: none Pain scale (0-10): 8 Quality: other (Pressure) Relieving factors: nothing Exacerbating factors: nothing Treatment prior to arrival: none Related Data Home Medications Medication Instructions Recorded Confirmed isosorbide mononitrate 30 mg PO DAILY 07/26/19 08/07/21 ezetimibe 10 mg PO DAILY 03/25/21 08/07/21 aspirin 81 mg tablet,delayed 81 mg PO DAILY 04/05/21 08/07/21 release Allergies Allergy/AdvReac Type Severity Reaction Status Date / Time celecoxib Allergy Severe Anaphylactic Verified 08/08/21 14:30 Shock Sulfa (Sulfonamide Allergy Severe Anaphylaxis Verified 08/08/21 14:30 Antibiotics) Review of Systems Review of Systems: All systems reviewed & are unremarkable except as noted in HPI and below Constitutional: Constitutional: Denies chills and Denies fever(s) ENT: Denies nasal congestion and Denies sore throat Cardiovascular: Cardiovascular: Reports chest pain, Denies rapid heart rate, Denies radiating jaw, neck or arm pain and Denies slow heart rate Respiratory: Respiratory: Denies cough, Denies dyspnea and Denies wheezing Gastrointestinal: Gastrointestinal: Denies nausea and Denies vomiting Musculoskeletal: Musculoskeletal: Denies arthralgias and Denies joint swelling Integumentary/Breasts: Skin/Breast: Reports as per HPI, Reports pruritus, Denies erythema and Denies rash Neurologic: Denies vertigo, Denies dizziness, Denies syncope, Denies numbness and Denies weakness Allergic/Immunologic: Allergic/Immunologic: Denies lip swelling and Denies throat swelling [facility] Past Medical History Medical History Anxiety Asthma Bronchitis CAD (coronary artery disease) Degenerative arthritis of finger Depression Diabetes 1.5, managed as type 2 GERD (gastroesophageal reflux disease) HLD (hyperlipidemia) Hypertension Pneumonia Spinal stenosis of lumbar region Surgical History Surgical History H/O right wrist surgery History of appendectomy Hx of left knee surgery Family History Family History Mother Family history non-contributory Social History Social History Smoking status: Current every day smoker Alcohol intake: never 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 Eyes: Conjunctivae: conjunctivae normal Pupils: Equal, round and reactive pupils present EOM: EOMs intact bilaterally Resp: Effort & Inspection: normal respiratory effort and not labored Auscultation: clear to auscultation bilaterally, no rales, no rhonchi and no wheezes Cardio: Rate: regular rate Rhythm: regular rhythm Heart sounds: no murmurs Skin: General skin exam: normal color, no jaundice and no pallor Rashes: n
[2021-08-07] MEDS: NITROGLYCERIN SL 0.4 MG TABLET SUBLINGUAL ×2 (00:49→01:06)
[2021-08-07] MEDS: ASPIRIN 81 MG CHEWABLE TABLET 243 MG PO (00:49)
[2021-08-07 00:55] LABS: Basophils Absolute Auto 0.08 K/mm3 (0.00-0.10); Basophils Percent Auto 0.7 % (0.0-1.0); Eosinophils Absolute Auto 0.18 K/mm3 (0.02-0.50); Eosinophils Percent Auto 1.5 % (1.0-6.0); Hematocrit 45.6 % (35.0-49.0); Hemoglobin 14.9 g/dL (12.0-15.0); Immature Granulocyte Absolute 0.04 K/mm3 (0.00-0.00); Immature Granulocyte Percent A 0.3 % (0.0-0.0); Lymphocytes Absolute Auto 4.58 K/mm3 (1.10-4.50); Lymphocytes Percent Auto 37.4 % (18.0-42.0); Mean Corpuscular HGB Conc 32.7 g/dL (32.0-36.0); Mean Corpuscular Hemoglobin 29.6 pg (27.0-31.0); Mean Corpuscular Volume 90.7 fL (78.0-102.0); Mean Platelet Volume 9.6 fl (9.2-11.8); Monocytes Absolute Auto 0.86 K/mm3 (0.10-0.90); Neutrophils Absolute Auto 6.5 K/mm3 (1.7-7.2); Neutrophils Percent Auto 53.1 % (50.0-70.0); Platelet Count Result 340 K/mm3 (150-420); Red Blood Count 5.03 M/mm3 (4.20-5.40); Red Cell Distribution Width 13.6 % (11.6-14.4); White Blood Count 12.3 K/mm3 (4.8-10.8)
[2021-08-07] MEDS: PANTOPRAZOLE SODIUM IV 40 MG VIAL IV PUSH (01:01)
[2021-08-07 01:13] LABS: Alanine Aminotransferase 20 U/L (14-59); Albumin Level 3.3 g/dL (3.4-5.0); Alkaline Phosphatase 129 U/L (46-116); Anion Gap 10 mmol/L (8-16); Aspartate Amino Transferase < 10 U/L (15-37); Bilirubin,Total 0.3 mg/dL (0.00-1.00); Blood Urea Nitrogen 10 mg/dL (7-18); Calcium 9.1 mg/dL (8.5-10.1); Carbon Dioxide 29 mmol/L (21-32); Chloride 100 mmol/L (98-108); Estimated CRCL calculation 59 ml/min; Estimated Glomerular Filt Rate > 60; Glucose 155 mg/dL (70-99); Osmolality Calculated 290 mOsm/kg (285-295); Potassium 3.8 mmol/L (3.5-5.1); Sodium 139 mmol/L (136-145); Total Protein 7.6 g/dL (6.4-8.2); Troponin I 8.2 ng/L (0.00-60.4)
[2021-08-07 01:17] LABS: D Dimer 0.62 mg/L (0.19-0.50)
--- NOTE | 2021-08-07 01:25 | PC.NURSE ---
first dose at 0049, chest pain 8/10, second dose at 0106 ,chest pain 6/10. at 0121, cheat pain 3/10, pt refused third does, BP 127/62, hr 85. MD Bhandari updated with pt status
[2021-08-07] MEDS: MORPHINE SULFATE (*CRX) 4 MG/ML INJ IV PUSH (01:32)
--- NOTE | 2021-08-07 02:45 | PC.NURSE ---
Md Bhandari updated with CT chest with contrast results; no new orders at this time.
[2021-08-07 04:03] LABS: Troponin I 8.9 ng/L (0.00-60.4)
--- NOTE | 2021-08-07 04:11 | PC.NURSE ---
second trop result 8.9, Md Bhandari notified; have third trop lab drawn at 6am. updated lab with Md Bhandari's request
[2021-08-07 06:38] LABS: Troponin I 8.6 ng/L (0.00-60.4)
[2021-08-07] MEDS: CLINDAMYCIN HCL 150 MG CAP 300 MG PO (06:42)
== END 2021-08-07 07:01 | disposition home or self-care (01) ==
PROVIDERS: Emergency Provider Emergency Medicine; PCP Nurse Practitioner Family
DX: R07.9 Chest pain, unspecified (principal); L72.3 Sebaceous cyst
CPT/HCPCS: 36415; 71275; 80053; 84484; 85025; 85380; 93005; 96374; 96375; 99283; 99284; A9270; C9113; J2270; Q9967

== ENCOUNTER 2021-09-19 16:19 | Outpatient (CLI) | payer SELFPAY ==
--- NOTE | ~2021-09-19 | XR_ITS ---
EXAMINATION: XR lumbar spine 2-3V DATE: 09/19/2021 17:32 INDICATION: Back pain, history of spinal stenosis TECHNIQUE: Anteroposterior and lateral views of the lumbar spine, and cone-down lateral view of the l umbosacral junction were obtained. COMPARISON: 03/12/2018 FINDINGS: There are 5 mm of anterolisthesis of L4 on L5. Vertebral body alignment is otherwise normal . There is no fracture. The vertebral body heights are maintained. There is mild loss of intervertebr al disc space height at L1-2. There is severe facet osteoarthritis at L4-5 and L5-S1. IMPRESSION: 1. Severe facet osteoarthritis of the lower lumbar spine without significant change. 2. Grade 1 anterolisthesis of L4 on L5. Reviewed, dictated and finalized at location F. N GROWER IMPRESSION: 1. Severe facet osteoarthritis of the lower lumbar spine without significant ch tanya. 2. Grade 1 anterolisthesis of L4 on L5.
== END 2021-09-19 16:20 | disposition home or self-care (01) ==
LOC: CHSLAB 16:23
PROVIDERS: PCP Nurse Practitioner Family; Visit Provider Nurse Practitioner Family
DX: M48.061 Spinal stenosis, lumbar region without neurogenic claudication (principal); M54.9 Dorsalgia, unspecified
CPT/HCPCS: 72100

== ENCOUNTER 2021-11-11 18:52 | Emergency (ER) | payer BC, SELFPAY ==
--- NOTE | 2021-11-11 19:01 | ED.WOUNDLAC ---
HPI - Wound/Laceration General Chief Complaint: Wound/Laceration Stated Complaint: cut on right hand Time Seen by Provider: 11/11/21 19:06 Source: patient Limitations: no limitations History of Present Illness HPI narrative: 62-year-old woman who takes aspirin daily comes in complaining of a laceration on her right index finger that occurred approximately 40 minutes prior to arrival and well using an apple ziggy. She states that she has been holding pressure on it but it continues to bleed. She states she has had a tetanus in the last 5 years. Onset (ago): minute(s) (40) Extremity Location: Right: hand Place: home Patient tetanus UTD: Yes Context: accidental Associated symptoms: other (Persistent bleeding) Related Data Home Medications Medication Instructions Recorded Confirmed aspirin 81 mg tablet,delayed 81 mg PO DAILY 04/05/21 08/07/21 release Allergies Allergy/AdvReac Type Severity Reaction Status Date / Time celecoxib Allergy Severe Anaphylactic Verified 10/18/21 14:56 Shock Sulfa (Sulfonamide Allergy Severe Anaphylaxis Verified 10/18/21 14:56 Antibiotics) Review of Systems Musculoskeletal: Musculoskeletal: Denies arthralgias and Denies joint swelling Integumentary/Breasts: Skin/Breast: Denies pruritus, Denies erythema and Denies rash Hematologic/Lymphatic: Hematologic/Lymphatic: Reports easy bleeding and Reports easy bruising PMFSH Past Medical History Medical History Anxiety Asthma Bronchitis CAD (coronary artery disease) Degenerative arthritis of finger Depression Diabetes 1.5, managed as type 2 GERD (gastroesophageal reflux disease) HLD (hyperlipidemia) Hypertension Pneumonia Spinal stenosis of lumbar region Surgical History Surgical History H/O right wrist surgery History of appendectomy Hx of left knee surgery Family History Family History Mother Family history non-contributory Social History Social History Smoking status: Current every day smoker Alcohol intake: never 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 No active bleeding at this time. Neuro: General: patient oriented x3, moves all extremities, no focal motor deficits and CN's II-XI intact bilaterally Speech: normal speech Gait exam (Neuro): Normal gait present Discharge Plan Discharge Clinical Impression: Finger laceration Qualifiers: Encounter type: initial encounter Finger: index finger Damage to nail status: without damage Foreign body presence: without foreign body Laterality: right Qualified Code(s): S61.210A - Laceration without foreign body of right index finger without damage to nail, initial encounter Condition: Stable Instructions: Laceration (ED) Additional Instructions: Keep the finger elevated and bandaged snugly. Keep the wound clean and dry. Prescriptions: No Action loratadine 10 mg tablet 10 mg PO DAILY PRN (Reason: allergy symptoms) Qty: 30 RF: 0 aspirin [Adult Aspirin Regimen] 81 mg tablet,delayed release (DR/EC) 81 mg PO DAILY RF: 0 diclofenac sodium 50 mg tablet,delayed release (DR/EC) 50 mg PO TID PRN (Reason: pain) Qty: 45 RF: 0 cyclobenzaprine 10 mg ta
[2021-11-11 19:09] VITALS: BP 160/74; PULSE 88; RESP 16; TEMP 36.7; O2SAT 95
--- NOTE | 2021-11-11 19:25 | PC.NURSE ---
Wound cleaned and wrapped dressing applied, distal circulation in tact
[2021-11-11 19:29] VITALS: BP 129/81; PULSE 93; RESP 16
== END 2021-11-11 19:30 | disposition home or self-care (01) ==
PROVIDERS: Emergency Provider Emergency Medicine; PCP Nurse Practitioner Family
DX: S61.210A Laceration without foreign body of right index finger without damage to nail, initial encounter (principal); W45.8XXA Other foreign body or object entering through skin, initial encounter
CPT/HCPCS: 99282

== ENCOUNTER 2021-11-28 15:21 | Outpatient (NON) | payer BC, SELFPAY | END 2021-11-28 15:22 | disposition home or self-care (01) | LOC: CHSLAB 15:22 | PROVIDERS: Visit Provider Nurse Practitioner Family | DX: R30.0 Dysuria (principal) | CPT/HCPCS: 87077; 87086; 87088; 87186 ==

== ENCOUNTER 2021-12-08 11:11 | Outpatient (CLI) | payer BC, SELFPAY ==
--- NOTE | ~2021-12-08 | CT_ITS ---
EXAMINATION: CT abdomen pelvis wo/w con DATE: 12/08/2021 14:08 INDICATION: Left flank pain, microscopic hematuria, dysuria. Right sciatica. TECHNIQUE: Computed tomography (CT) of the abdomen and pelvis was performed without and subsequently with 130 CC Omnipaque 350 intravenous contrast. Automated exposure control and iterative reconstructi on technique were employed. Exam dose: 2385.48 mGy-cm total exam DLP. COMPARISON: 06/29/2017 CT abdomen pelvis with IV contrast material FINDINGS: The lung bases are clear of infiltrate or consolidation. There are scattered calcified pulm onary granulomas. Normal heart size. No pericardial or pleural effusion. The gallbladder is present. No bile duct or pancreatic duct dilatation. There is diffuse hepatic steatosis. No hepatic, splenic, pancreatic, adrenal or renal space-occupying mass lesion is detected. No urinary tract calculus or hydroureteronephrosis. There are shotty nonenlarged periaortic and aortocaval lymph nodes. No intraperitoneal or retroperito monika or pelvic mass lesion or adenopathy or ascites is noted. Mild left colon diverticulosis; no CT evidence of diverticulitis. No bowel obstruction, bowel wall th ickening, pneumatosis or intraperitoneal free air. Operative 4 cm probably calcified fibroid of the left side of the uterus. The urinary bladder is unremarkable, without any filling defect or focal wall thickening.. No bowel obstruction, bowel wall thickening, pneumatosis or intraperitoneal free air. Normal caliber without evidence for scar calcification of the abdominal aorta. No abdominal aortic an eurysm. No intraperitoneal or retroperitoneal or pelvic mass lesion or adenopathy or ascites. Degenerative changes of the included lower thoracic and lumbar spine. This includes degenerative bowman ge of the apophyseal joints of the lower lumbosacral area with associated grade 1 anterolisthesis at L4-5. No suspicious osteolytic or osteoblastic lesions are noted. IMPRESSION: No urinary tract calculus or hydroureteronephrosis. No urinary tract mass lesion is evid ent Hepatic steatosis Impression 4 cm calcified uterine fibroid Diverticulosis of the left colon; no evidence of diverticulitis Reviewed, dictated and finalized at Location A. Reviewed, dictated and finalized at location A. IMPRESSION: No urinary tract calculus or hydroureteronephrosis. No urinary tra ct mass lesion is evident Hepatic steatosis Impression 4 cm calcified uterine fibroid Diverticulosis of the left colon; no evidence of diverticulitis
[2021-12-08 11:43] LABS: Estimated Glomerular Filt Rate > 60
== END 2021-12-08 11:12 | disposition home or self-care (01) ==
LOC: CHSIMG 11:13
PROVIDERS: PCP Nurse Practitioner Family; Visit Provider Nurse Practitioner Family
DX: R31.29 Other microscopic hematuria (principal); R10.9 Unspecified abdominal pain
CPT/HCPCS: 74178; Q9967

== ENCOUNTER 2021-12-17 23:03 | Emergency (ER) | payer BC, SELFPAY ==
[2021-12-17 23:04] VITALS: BP 152/74; PULSE 72; RESP 20; TEMP 36.1; O2SAT 96
--- NOTE | 2021-12-17 23:22 | ED.BACK ---
HPI - Back Pain/Injury General Chief Complaint: Extremity Problem,Nontraumatic Stated Complaint: right buttox pain Time Seen by Provider: 12/17/21 23:23 Source: patient and RN notes reviewed Mode of arrival: ambulatory Limitations: no limitations History of Present Illness MD elicited complaint: back pain Pertinent past history: prior back pain and back surgery Onset (ago): week(s) (4) Timing: progressively worsening (for the last week) Severity: severe Similar Symptoms Previously: Yes Quality: dull, aching and throbbing Location: right lower back Radiation: buttocks Exacerbating factors: sitting upright Relieving factors: none Associated symptoms: parasthesias (right leg intermittent) Work related injury: No Related Data Home Medications Medication Instructions Recorded Confirmed aspirin 81 mg tablet,delayed 81 mg PO DAILY 04/05/21 12/17/21 release ezetimibe 10 mg tablet 10 mg PO DAILY tablet 11/28/21 12/17/21 Allergies Allergy/AdvReac Type Severity Reaction Status Date / Time celecoxib Allergy Severe Anaphylactic Verified 12/17/21 23:16 Shock Sulfa (Sulfonamide Allergy Severe Anaphylaxis Verified 12/17/21 23:16 Antibiotics) Review of Systems Review of Systems: All systems reviewed & are unremarkable except as noted in HPI and below PMFSH Past Medical History Medical History Abscess of back Allergic rhinitis Anxiety Asthma Bronchitis CAD (coronary artery disease) Chest pain Degenerative arthritis of finger Depression Diabetes 1.5, managed as type 2 Exposure to COVID-19 virus GERD (gastroesophageal reflux disease) Green stool HLD (hyperlipidemia) Hypertension Pneumonia Sebaceous cyst Spinal stenosis of lumbar region Surgical History Surgical History H/O right wrist surgery History of appendectomy Hx of left knee surgery Family History Family History Mother Family history non-contributory Social History Social History Smoking status: Current every day smoker Alcohol intake: never 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 identity (if verbalized by the patient): Female Exam Const: General: healthy appearing, no acute distress and alert Nutritional Appearance: well nourished and obese morbidly obese Orientation/consciousness: patient oriented x3 HENMT: Head: normal to inspection Ears: external ears normal Eyes: Conjunctivae: conjunctivae normal Pupils: Equal, round and reactive pupils present EOM: EOMs intact bilaterally Neck: Neck: normal visual inspection Resp: Effort & Inspection: normal respiratory effort Auscultation: clear to auscultation bilaterally Cardio: Rate: regular rate Rhythm: regular rhythm GI: GI Palp: Yes Soft to palpation, No Tenderness to palpation present (GI) and No Guarding due to palpation present (GI) Auscultation: normal bowel sounds Back/Spine/Pelvis: Cervical Spine: cervical ROM normal Thoracic/Lumbar Spine: straight leg raise negative bilaterally and pain with thoraco-lumbar ROM Pelvis: buttock tenderness on the right ( Over the ischial tuberosity) Sacrum: tenderness Skin: General skin exam: normal color Rashes: no rashes Neuro: General: patient oriented x3, moves all extremities, no focal motor deficits and CN's II-XI intact bilaterally Speech: normal speech Gait exam (Neuro): Normal gait present Motor exam (neuro): 5/5 motor strength present throughout Deep tendon reflexes (DTR's): Right patellar reflex intensity grade: 1+, Left patellar reflex intensity grade: 2+, Right ankle reflex intensity grade: 2+ and Left ankle reflex intensity grade: 2+ Course Course Emergency Course: patient improved after Toradol. Strongly recommended to consider physical therapy, possibly see orthope
[2021-12-17] MEDS: KETOROLAC (*BKC) 60 MG/2 ML VIAL IM (23:42)
== END 2021-12-18 00:10 | disposition home or self-care (01) ==
PROVIDERS: Emergency Provider Emergency Medicine; PCP Nurse Practitioner Family
DX: M54.31 Sciatica, right side (principal)
CPT/HCPCS: 96372; 99283; J1885

== ENCOUNTER 2021-12-26 03:20 | Emergency (ER) | payer BC, SELFPAY ==
[2021-12-26 03:20] VITALS: BP 179/82; PULSE 82; RESP 20; TEMP 36.7; O2SAT 98
[2021-12-26] MEDS: KETOROLAC (*BKC) 60 MG/2 ML VIAL IM (03:39)
[2021-12-26 03:56] VITALS: BP 179/82; PULSE 82; RESP 18; TEMP 36.7; O2SAT 98
--- NOTE | 2021-12-26 04:00 | ED.EXTPRO ---
HPI - Extremity Problem General Chief complaint: Extremity Problem,Nontraumatic Stated complaint: leg pain Time Seen by Provider: 12/26/21 03:22 Source: patient and RN notes reviewed Mode of arrival: ambulatory Limitations: no limitations History of Present Illness MD Complaint: extremity pain and joint paint Onset (ago): day(s) (2) Location: right Severity scale (1-10): 8 Quality: aching, dull and other (mild numbness of right buttock to RLE.) Relieving factors: immobilization Exacerbating factors: range of motion and weight bearing Related Data Home Medications Medication Instructions Recorded Confirmed aspirin 81 mg tablet,delayed 81 mg PO DAILY 04/05/21 12/26/21 release ezetimibe 10 mg tablet 10 mg PO DAILY tablet 11/28/21 12/26/21 Allergies Allergy/AdvReac Type Severity Reaction Status Date / Time celecoxib Allergy Severe Anaphylactic Verified 12/17/21 23:16 Shock Sulfa (Sulfonamide Allergy Severe Anaphylaxis Verified 12/17/21 23:16 Antibiotics) Review of Systems Review of Systems: All systems reviewed & are unremarkable except as noted in HPI and below PMFSH Past Medical History Medical History (Updated 12/26/21 @ 07:30 by Shy Lozano MD) Abscess of back Allergic rhinitis Anxiety Asthma Bronchitis CAD (coronary artery disease) Chest pain Degenerative arthritis of finger Depression Diabetes 1.5, managed as type 2 Exposure to COVID-19 virus GERD (gastroesophageal reflux disease) Green stool HLD (hyperlipidemia) Hypertension Pneumonia Sciatica of right side Sebaceous cyst Spinal stenosis of lumbar region Surgical History Surgical History H/O right wrist surgery History of appendectomy Hx of left knee surgery Family History Family History Mother Family history non-contributory Social History Social History Smoking status: Current every day smoker Alcohol intake: never 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 identity (if verbalized by the patient): Female Exam Const: General: no acute distress and alert Nutritional Appearance: obese Orientation/consciousness: patient oriented x3 Limitations: no limitations HENMT: Head: normal to inspection Ears: external ears normal, TM's normal bilaterally and EAC's normal General nose exam: Normal external nose present and Normal nares present Face and sinus: normal facial exam and sinuses nontender Mouth: Yes moist mucous membranes Eyes: Conjunctivae: conjunctivae normal Pupils: Equal, round and reactive pupils present EOM: EOMs intact bilaterally Neck: Neck: normal visual inspection and no lymphadenopathy Chest: Chest palpation & inspection: normal inspection of the chest Resp: Effort & Inspection: normal respiratory effort Auscultation: clear to auscultation bilaterally Cardio: Rate: regular rate Rhythm: regular rhythm GI: GI Palp: Yes Soft to palpation and No Tenderness to palpation present (GI) Auscultation: normal bowel sounds : General: Yes bladder normal to palpation and Yes no CVA tenderness Back/Spine/Pelvis: Back: no CVA tenderness Skin: General skin exam: normal color Rashes: no rashes Neuro: General: patient oriented x3, moves all extremities, no meningeal signs, no focal motor deficits and CN's II-XI intact bilaterally Extrem: General: normal to inspection and no pedal edema Other: minimally tender right buttock on deep palpation. no acute abnormality of the right lower limb Psych: Appearance: grossly normal Mental Status: mental status grossly normal Affect: normal affect and Anxious affect present Attitude: cooperative Thought content: Yes Normal thought content present Course Course Emergency Course: Pt was stable in the ED, less painful Reevaluation(s) Date: 12/26/21 Time: 04:
== END 2021-12-26 04:29 | disposition home or self-care (01) ==
PROVIDERS: Emergency Provider Emergency Medicine; PCP Nurse Practitioner Family
DX: M54.31 Sciatica, right side (principal)
CPT/HCPCS: 96372; 99283; J1885

== ENCOUNTER 2022-01-09 12:33 | Outpatient (CLI) | payer BC, SELFPAY ==
--- NOTE | ~2022-01-09 | US_ITS ---
EXAMINATION: US pelvic complete w TV DATE: 01/09/2022 12:54 INDICATION: Leiomyoma of the uterus TECHNIQUE: Multiple transabdominal and endovaginal sonographic images of the pelvis were obtained. COMPARISON: CT, 12/08/2021 FINDINGS: The uterus measures 5.6 x 3.1 x 3.7 cm. There is an approximately 4.1 x 3.7 x 3.8 cm isoech oic calcified mass in the anterior uterine body which has the appearance of an intramural fibroid. A 1.3 x 1.3 x 1.9 cm isoechoic mass of the right uterine body has the appearance of an intramural fibro id as well. The endometrial complex measures 5 mm. The ovaries are not visualized however no adnexal abnormality is seen. There is no free fluid in the pelvis. IMPRESSION: 1. Uterine fibroids. Reviewed, dictated and finalized at location A. IMPRESSION: 1. Uterine fibroids.
== END 2022-01-09 12:34 | disposition home or self-care (01) ==
LOC: CHSIMG 12:34
PROVIDERS: PCP Nurse Practitioner Family; Visit Provider Student in an Organized Health Care Education/Training Program
DX: D25.9 Leiomyoma of uterus, unspecified (principal)
CPT/HCPCS: 76830; 76856

== ENCOUNTER 2022-01-12 15:18 | Outpatient (CLI) | payer BC, SELFPAY ==
--- NOTE | ~2022-01-12 | XR_ITS ---
XR toe 5th LT min 2V DATE: 01/12/2022 15:56 INDICATION: Injury from fall, right fifth toe pain TECHNIQUE: 4 views COMPARISON: 05/30/2020 left foot FINDINGS: There is a recent fracture of the neck of the proximal phalanx of the fifth toe with minima l displacement or angulation. IMPRESSION: Minimally displaced fracture of the neck of the proximal phalanx of the fifth toe Reviewed, dictated and finalized at location A.
== END 2022-01-12 15:19 | disposition home or self-care (01) ==
LOC: CHSIMG 15:20
PROVIDERS: PCP Nurse Practitioner Family; Visit Provider Nurse Practitioner Family
DX: M79.675 Pain in left toe(s) (principal)
CPT/HCPCS: 73660

== ENCOUNTER 2022-01-13 15:45 | Emergency (ER) | payer BC, SELFPAY ==
[2022-01-13 15:55] VITALS: BP 154/73; PULSE 72; RESP 18; TEMP 36.2; O2SAT 96
--- NOTE | 2022-01-13 15:58 | ED.EXTPRO ---
HPI - Extremity Problem General Stated complaint: left pinky toe pain Time Seen by Provider: 01/13/22 15:48 Source: patient Mode of arrival: ambulatory Limitations: no limitations History of Present Illness HPI Narrative: this is a 61-year-old female presents after her primary ordered an x-ray that was reviewed by the primary shoulder minimally displaced fracture of the distal left 5th toe, did not send any pain medication, and advised patient if the pain persisted to present to the emergency department. The patient currently is having pain with bruising x-ray reviewed from yesterday. Has some limited range of motion secondary to pain swelling and bruising otherwise pedal pulse on the left are all strong and brisk. Complaint: extremity pain Onset (ago): day(s) Pain Consistency: constant Location: left Severity scale (1-10): 8 Quality: other ( left 5th toe) Radiation: proximal Related Data Home Medications Medication Instructions Recorded Confirmed aspirin 81 mg tablet,delayed 81 mg PO DAILY 04/05/21 12/26/21 release ezetimibe 10 mg tablet 10 mg PO DAILY tablet 11/28/21 12/26/21 Allergies Allergy/AdvReac Type Severity Reaction Status Date / Time celecoxib Allergy Severe Anaphylactic Verified 01/12/22 14:42 Shock Sulfa (Sulfonamide Allergy Severe Anaphylaxis Verified 01/12/22 14:42 Antibiotics) Review of Systems Review of Systems: All systems reviewed & are unremarkable except as noted in HPI and below PMFSH Past Medical History Medical History Abscess of back Allergic rhinitis Anxiety Asthma Bronchitis CAD (coronary artery disease) Chest pain Degenerative arthritis of finger Depression Diabetes 1.5, managed as type 2 Exposure to COVID-19 virus GERD (gastroesophageal reflux disease) Green stool HLD (hyperlipidemia) Hypertension Pneumonia Sciatica of right side Sebaceous cyst Spinal stenosis of lumbar region Surgical History Surgical History H/O right wrist surgery History of appendectomy Hx of left knee surgery Family History Family History Mother Diabetes mellitus Hypertension Heart disease History of TIA (transient ischemic attack) Father Diabetes mellitus Sibling Diabetes mellitus Hypertension Heart disease Grandparent Diabetes mellitus Social History Social History Smoking status: Current every day smoker Alcohol intake: never Substance use: never 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 identity (if verbalized by the patient): Female Exam Const: General: no acute distress Orientation/consciousness: patient oriented x3 HENMT: Head: normal to inspection Eyes: Conjunctivae: conjunctivae normal Pupils: Equal, round and reactive pupils present Neck: Neck: normal visual inspection, no lymphadenopathy and no meningeal signs Chest: Chest palpation & inspection: normal inspection of the chest Resp: Effort & Inspection: normal respiratory effort Cardio: Rate: regular rate Rhythm: regular rhythm GI: GI Palp: Yes Soft to palpation Percussion: Yes normal to percussion Urinary Catheter: Urinary Catheter: patent and draining Skin: Other: bruising distal left 5th toe Neuro: General: patient oriented x3 and moves all extremities Extrem: General: normal to inspection Other: pain with palpation and movement of her left 5th toe with bruising and mild swelling Psych: Mental Status: mental status grossly normal Course Course Emergency Course: x-ray reviewed from yesterday will apply emerita-tape patient states that there was a lot of throbbing pain and give the patient 4mg IM morphine. Critical Care Time Critical Care Time Critical Care Time: No Discharge Plan Discharge Clinica
[2022-01-13] MEDS: MORPHINE SULFATE (*CRX) 4 MG/ML INJ IM (16:18)
[2022-01-13 16:26] VITALS: BP 149/68; PULSE 69; RESP 16; O2SAT 97
== END 2022-01-13 16:33 | disposition home or self-care (01) ==
PROVIDERS: Emergency Provider Emergency Medicine; PCP Nurse Practitioner Family
DX: S92.522A Displaced fracture of middle phalanx of left lesser toe(s), initial encounter for closed fracture (principal)
CPT/HCPCS: 96372; 99284; J2270

== ENCOUNTER 2022-01-25 14:19 | Outpatient (CLI) | payer BC, SELFPAY ==
[2022-01-25 14:41] LABS: Hemoglobin 14.4 g/dL (12.0-15.0); Mean Corpuscular HGB Conc 32.7 g/dL (32.0-36.0); Mean Corpuscular Hemoglobin 30.1 pg (27.0-31.0); Mean Corpuscular Volume 91.9 fL (78.0-102.0); Mean Platelet Volume 9.9 fl (9.2-11.8); Platelet Count Result 316 K/mm3 (150-420); Red Blood Count 4.79 M/mm3 (4.20-5.40); Red Cell Distribution Width 13.6 % (11.6-14.4); White Blood Count 10.9 K/mm3 (4.8-10.8)
[2022-01-25 15:18] LABS: Band Neutrophils Percent 0 % (0-6); Eosinophils Percent Manual 1 % (1-6); Lymphocytes Absolute Manual 5.66 K/mm3 (1.1-4.5); Lymphocytes Percent Manual 52 % (18-44); Monocytes Absolute Manual 0.43 K/mm3 (0.1-0.90); Monocytes Percent Manual 4 % (3-9); Neutrophils Absolute Manual 4.68 K/mm3 (1.7-7.2); Neutrophils Percent Manual 43 % (46-73); Total Cells Counted 100
[2022-01-25 15:19] LABS: Platelet Estimate Adequate (Adequate)
[2022-01-26 18:25] LABS: Alanine Aminotransferase 24 U/L (14-59); Albumin Level 3.3 g/dL (3.4-5.0); Alkaline Phosphatase 135 U/L (46-116); Anion Gap 10 mmol/L (8-16); Aspartate Amino Transferase 15 U/L (15-37); Bilirubin,Total 0.4 mg/dL (0.00-1.00); Blood Urea Nitrogen 11 mg/dL (7-18); Carbon Dioxide 24 mmol/L (21-32); Chloride 101 mmol/L (98-108); Cholesterol 175 mg/dL (0-200); Estimated Glomerular Filt Rate > 60; Glucose 166 mg/dL (70-99); HDL Direct 29 mg/dL (40-60); LDL Cholesterol Calculated 83 mg/dL (<130); Osmolality Calculated 283 mOsm/kg (285-295); Potassium 4.1 mmol/L (3.5-5.1); Sodium 135 mmol/L (136-145); Total Protein 7.5 g/dL (6.4-8.2); Triglycerides 316 mg/dL (0-150)
== END 2022-01-25 14:20 | disposition home or self-care (01) ==
LOC: CHSLAB 14:22
PROVIDERS: PCP Nurse Practitioner Family; Visit Provider Nurse Practitioner Family
DX: E13.9 Other specified diabetes mellitus without complications (principal); I10 Essential (primary) hypertension; E78.5 Hyperlipidemia, unspecified
CPT/HCPCS: 36415; 80053; 80061; 83036; 85025

== ENCOUNTER 2022-02-06 13:15 | Outpatient (CLI) | payer BC, SELFPAY ==
--- NOTE | ~2022-02-06 | DEXA_ITS ---
Bone Density Report Name: TRISH PERKINS Age: 61 Sex: Female Ethnicity: White Date of : 1960 Indication: postmenopausal; screening for osteoporosis; height loss; prior fracture; rheumatoid arthritis; Referring Provider: Mallory Villaseñor Study: Bone densitometry was performed. Exam Date: February 06, 2022 Accession number: [id number] Bone Density: Region BMD T-score Z-score Classification AP Spine(L1-L4) 1.046 0.0 1.5 Normal Femoral Neck (Left) 0.755 -0.8 0.5 Normal Total Hip (Left) 0.926 -0.1 0.9 Normal Femoral Neck (Right) 0.875 0.2 1.6 Normal Total Hip (Right) 0.926 -0.1 0.9 Normal Femoral Neck Mean 0.815 -0.3 1.0 Normal Total Hip Mean 0.926 -0.1 0.9 Normal World Health Organization criteria for BMD impression classify patients as: Normal (T-score at or above -1.0), Osteopenia (T-score between -1.0 and -2.5), or Osteoporosis (T-score at or below -2.5). 10-year Fracture Risk: FRAX not reported because: All T-scores for Spine Total, Hip Total, Femoral Neck at or above -1.0 Clinical Information Provided by Patient: Has had a low trauma fracture Smokes Has rheumatoid arthritis Patient maximum height was 63 Menopause Age: 35 No regular weight bearing exercise Does not regularly consume dairy products Drinks caffeinated beverages Onset of menses at age 13 Impression: The patient has normal bone mass. The patient has risk factors, including: smoking, previous fracture. Discussion: BONE DENSITY IS ABOVE THE MINIMUM DESIRABLE LEVEL AT ALL SKELETAL SITES TESTED. This patient?s bone mineral density is above the minimum desirable level (T-score -1.0 or better) at all sites measured. The patient should follow a healthful lifestyle (good nutrition with adequate calcium and vitamin D, and appropriate weight-bearing exercise). Follow-Up: Consider repeating this study in 5 years or sooner if there is some new clinical indication. Reported by: Dr. Dipak Garcia on 02/06/2022 2:00:00 PM. Reviewed, dictated and finalized at location [facility]old[facility]
--- NOTE | ~2022-02-06 | MM_ITS ---
EXAMINATION: MM screening lucius BI w bell HISTORY: Screening mammogram TECHNIQUE: Craniocaudal and mediolateral oblique 3-D tomosynthesis images were obtained and synthetic 2-D images were generated. CAD analysis was submitted and interpreted. COMPARISON: 03/16/2015 bilateral screening mammogram BREAST PARENCHYMAL COMPOSITION: The breasts are almost entirely fatty. FINDINGS: Biopsy marker in the lower mid left breast; history of prior benign left breast biopsy. The re is no evidence of suspicious mass, calcification, or architectural distortion to suggest malignanc y in either breast. There has been no suspicious interval change. IMPRESSION: 1. No mammographic evidence of malignancy. 2. Recommend routine screening mammography in one year. BI-RADS Category 1: Negative Reviewed, dictated and finalized at location A.
== END 2022-02-06 13:16 | disposition home or self-care (01) ==
LOC: CHSIMG 13:20
PROVIDERS: PCP Nurse Practitioner Family; Visit Provider Student in an Organized Health Care Education/Training Program
DX: Z12.31 Encounter for screening mammogram for malignant neoplasm of breast (principal); Z78.0 Asymptomatic menopausal state
CPT/HCPCS: 77063; 77067; 77080

== ENCOUNTER 2022-03-03 07:39 | Outpatient (CLI) | payer BC, SELFPAY ==
--- NOTE | ~2022-03-03 | MR_ITS ---
EXAMINATION: MR lumbar spine wo con DATE: 03/03/2022 09:54 INDICATION: Low back pain disc degeneration . TECHNIQUE: Magnetic resonance imaging (MRI) of the lumbar spine was performed without intravenous con trast. Sequences included sagittal T2-weighted FSE, sagittal T2-weighted FS FSE, sagittal T1-weighted FSE, and axial T2-weighted FSE. COMPARISON: None FINDINGS: The last fully formed and hydrated disc is designated L5-S1. Rudimentary disc between S1 an d S2 and prominent transverse processes versus hypoplastic ribs at L1. 4 mm anterolisthesis of L4 on L5. The marrow signal is benign and homogenous. Conus terminates at L2. Mild disc dehydration at L3-4 through L5-S1. The following disc levels are specifically discussed: T11-T12: Mild diffuse bulge. There is no facet joint osteoarthritis. There is no neural foraminal douglas nosis. There is no central canal stenosis. T12-L1: Moderate diffuse bulge. There is moderate facet joint osteoarthritis. There is no neural fora zenia stenosis. There is no central canal stenosis. L1-L2: Mild diffuse bulge. There is moderate facet joint osteoarthritis. There is no neural foraminal stenosis. There is no central canal stenosis. L2-L3: Mild diffuse bulge. There is moderate facet joint osteoarthritis. There is mild bilateral neur al foraminal stenosis. There is no central canal stenosis. L3-L4: Mild diffuse bulge. There is moderate facet joint osteoarthritis. There is mild bilateral neur al foraminal stenosis. There is no central canal stenosis. L4-L5: Moderate diffuse bulge. There is severe facet joint osteoarthritis. There is moderate left and severe right neural foraminal stenosis. There is severe central canal stenosis. L5-S1: Moderate diffuse bulge. There is severe facet joint osteoarthritis. There is moderate bilatera l neural foraminal stenosis. There is no central canal stenosis. IMPRESSION: 1. Severe central canal and right neural foraminal stenosis at L4-5 caused by combination of a grade 1 anterolisthesis, moderate degenerative disc disease, and severe facet arthropathy. 2. Additional less severe degenerative changes described in detail above. 3. Spinal level numbering anomaly described above. Reviewed, dictated and finalized at location K. IMPRESSION: 1. Severe central canal and right neural foraminal stenosis at L4-5 caused by c ombination of a grade 1 anterolisthesis, moderate degenerative disc disease, an d severe facet arthropathy. 2. Additional less severe degenerative changes described in detail above. 3. Spinal level numbering anomaly described above.
== END 2022-03-03 07:40 | disposition home or self-care (01) ==
LOC: CHSIMG 07:40
PROVIDERS: PCP Nurse Practitioner Family; Visit Provider Physician Assistant
DX: M54.50 Low back pain, unspecified (principal)
CPT/HCPCS: 72148

== ENCOUNTER 2022-04-27 00:13 | Day surgery (SDC) | payer BC, SELFPAY ==
[2022-04-16 14:48] VITALS: BMI 33.5
[2022-04-27 06:19] VITALS: BP 127/78; PULSE 62; RESP 20; TEMP 36.6; O2SAT 97
[2022-04-27 06:25] LABS: Glucose Point of Care 108 mg/dl (65-105)
[2022-04-27] MEDS: LACTATED RINGERS 1,000 ML 150 ML IV CONT (06:36)
--- NOTE | 2022-04-27 07:16 | WPDANESEPPF ---
Anes - Initial Pre Proc Eval Procedure: Operation Date: 04/27/22 07:30 Proposed Procedures p Screening Colonoscopy - Tommy Gabriel MD Date/Time: 04/27/22 07:16 Surgeon: Tommy Gabriel MD Pre Op Diagnosis: neoplasm screening Patient Data Age: 61 Gender: F Height: 1.56 m Weight: 84.7 kg Last Vital Signs Temp 97.9 F 04/27/22 06:19 Pulse 62 04/27/22 06:19 Resp 20 04/27/22 06:19 BP 127/78 04/27/22 06:19 Pulse Ox 97 04/27/22 06:19 O2 Del Method Room Air 04/27/22 06:19 Allergies Allergy/AdvReac Type Severity Reaction Status Date / Time celecoxib Allergy Severe Anaphylactic Verified 04/27/22 06:17 Shock Sulfa (Sulfonamide Allergy Severe Anaphylaxis Verified 04/27/22 06:17 Antibiotics) Home Medications Medication Instructions Recorded Confirmed Type aspirin 81 mg tablet,delayed 81 mg PO DAILY 04/05/21 04/16/22 History release (Adult Aspirin Regimen) loratadine 10 mg tablet 10 mg PO DAILY PRN allergy 10/02/21 04/16/22 Rx symptoms #30 tabs cyclobenzaprine 10 mg tablet 10 mg PO .HS PRN muscle spasm #20 11/28/21 04/16/22 Rx tabs ezetimibe 10 mg tablet 10 mg PO DAILY 11/28/21 04/16/22 History diclofenac potassium 50 mg tablet 50 mg PO DAILY PRN Pain 01/31/22 04/16/22 History dulaglutide 0.75 mg/0.5 mL 0.75 mg (0.5 mL) subcut WEEKLY #2 02/13/22 04/16/22 Rx subcutaneous pen injector mL (Trulicity) escitalopram oxalate 20 mg tablet 20 mg PO DAILY #90 tabs 02/13/22 04/16/22 Rx metformin 500 mg tablet 500 mg PO BID #180 tabs 02/16/22 04/16/22 Rx atorvastatin 80 mg tablet See Rx Instructions .Route 02/22/22 04/16/22 Rx .COMPLEX #90 tabs isosorbide mononitrate 30 mg See Rx Instructions .Route 02/22/22 04/16/22 Rx tablet,extended release 24 hr .COMPLEX #90 tabs fluticasone propionate 50 1 spray intranasal DAILY #9.9 mL 03/07/22 04/16/22 Rx mcg/actuation nasal spray,suspension (Allergy Relief (fluticasone)) tramadol 50 mg tablet 50 mg PO Q6H PRN pain #14 tabs 03/08/22 04/16/22 Rx metoprolol tartrate 50 mg tablet 50 mg PO BID #60 tabs 04/03/22 04/16/22 Rx dulaglutide 0.75 mg/0.5 mL 0.75 mg subcut WEEKLY 04/16/22 04/16/22 History subcutaneous pen injector (Trulicity) triamcinolone acetonide 0.1 % 1 applic topical TID PRN Itching 04/16/22 04/16/22 History topical cream omeprazole 40 mg capsule,delayed See Rx Instructions .Route 04/24/22 04/27/22 Rx release .COMPLEX #30 caps topiramate 25 mg tablet 25 mg PO BID #60 tabs 04/24/22 04/27/22 Rx Laboratory Tests 04/27/22 06:22 POC Capillary Glucose 108 mg/dl H mg/dl (65-105) Patient hx anesthesia problems: none Family hx anesthesia problems: none Results Review: All pre-operative results and documents have been reviewed as part of the pre-operative evaluation. [facility] Past Medical History Medical History Abscess of back Allergic rhinitis Anxiety Asthma Bronchitis CAD (coronary artery disease) Chest pain Degenerative arthritis of finger Depression Diabetes 1.5, managed as type 2 Exposure to COVID-19 virus GERD (gastroesophageal reflux disease) Green stool HLD (hyperlipidemia) Hypertension Pneumonia Sciatica of right side Sebaceous cyst Spinal stenosis of lumbar region Surgical History Surgical History H/O right wrist surgery History of appendectomy Hx of left knee surgery Family History Family History Mother Diabetes mellitus Hypertension Heart disease History of TIA (transient ischemic attack) Father Diabetes mellitus Sibling Diabetes mellitus Hypertension Heart disease Grandparent Diabetes mellitus Social History Social History Smoking packs per day: 1 Smoking cigarettes per day: 20.0 Years smoked: 40
--- NOTE | 2022-04-27 07:25 | PM.HPGS ---
History of Present Illness History of Present Illness Consent: Risks, benefits, and alternatives have been discussed and questions answered. Patient agrees to proceed with procedure. Chief complaint: neoplasm screening Narrative: Vivian Hyde is a 61 year old female here for first screening colonoscopy Review of Systems Constitutional: Constitutional: Denies headache(s) and Denies weakness Eyes: Eyes: Denies blurry vision ENT: Reports Normal hearing present, Denies headache(s) and Denies neck pain Cardiovascular: Cardiovascular: Denies chest pain and Denies dyspnea Respiratory: Respiratory: Denies dyspnea Gastrointestinal: Gastrointestinal: Reports no additional gastrointestinal complaints Genitourinary: Genitourinary: Denies dysuria Musculoskeletal: Musculoskeletal: Denies neck pain Integumentary/Breasts: Skin/Breast: Denies dry skin Neurologic: Reports Normal hearing present, Denies headache(s) and Denies weakness Psychiatric: Psychiatric: Denies anxiety Endocrine: Endocrine: Denies change in body appearance Hematologic/Lymphatic: Hematologic/Lymphatic: Denies easy bleeding Allergic/Immunologic: Allergic/Immunologic: Denies urticaria PMFSH Past Medical History Medical History (Updated 04/27/22 @ 07:26 by Tommy Gabriel MD) Abscess of back Allergic rhinitis Anxiety Asthma Bronchitis CAD (coronary artery disease) Chest pain Colon cancer screening Degenerative arthritis of finger Depression Diabetes 1.5, managed as type 2 Exposure to COVID-19 virus GERD (gastroesophageal reflux disease) Green stool HLD (hyperlipidemia) Hypertension Pneumonia Sciatica of right side Sebaceous cyst Spinal stenosis of lumbar region Surgical History Surgical History H/O right wrist surgery History of appendectomy Hx of left knee surgery Family History Family History Mother Diabetes mellitus Hypertension Heart disease History of TIA (transient ischemic attack) Father Diabetes mellitus Sibling Diabetes mellitus Hypertension Heart disease Grandparent Diabetes mellitus Social History Social History Smoking packs per day: 1 Smoking cigarettes per day: 20.0 Years smoked: 40 Smoking pack-years: 40.00 Smoking status: Current every day smoker Tobacco type: cigarettes Alcohol intake: never Substance use: never Substance use type: does not use Living arrangements: with family 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 identity (if verbalized by the patient): Female Spiritual care concerns: No Meds Home Medications and Allergies Home Medications Medication Instructions Recorded Confirmed Type aspirin 81 mg tablet,delayed 81 mg PO DAILY 04/05/21 04/16/22 History release (Adult Aspirin Regimen) loratadine 10 mg tablet 10 mg PO DAILY PRN allergy 10/02/21 04/16/22 Rx symptoms #30 tabs cyclobenzaprine 10 mg tablet 10 mg PO .HS PRN muscle spasm #20 11/28/21 04/16/22 Rx tabs ezetimibe 10 mg tablet 10 mg PO DAILY 11/28/21 04/16/22 History diclofenac potassium 50 mg tablet 50 mg PO DAILY PRN Pain 01/31/22 04/16/22 History dulaglutide 0.75 mg/0.5 mL 0.75 mg (0.5 mL) subcut WEEKLY #2 02/13/22 04/16/22 Rx subcutaneous pen injector mL (Trulicity) escitalopram oxalate 20 mg tablet 20 mg PO DAILY #90 tabs 02/13/22 04/16/22 Rx metformin 500 mg tablet 500 mg PO BID #180 tabs 02/16/22 04/16/22 Rx atorvastatin 80 mg tablet See Rx Instructions .Route 02/22/22 04/16/22 Rx .COMPLEX #90 tabs isosorbide mononitrate 30 mg See Rx Instructions .Route 02/22/22 04/16/22 Rx tablet,extended release 24 hr .COMPLEX #90 tabs fluticasone propionate 50 1 spray intranasal DAILY #9.9 mL 03/07/22 04/16/22 Rx mcg/actuation nasal spray,suspension (Allergy Relief (flutic
[2022-04-27 07:43] VITALS: BP 96/55; PULSE 76; RESP 15; O2SAT 92
[2022-04-27 07:53] VITALS: BP 119/89; PULSE 70; RESP 20; O2SAT 97
[2022-04-27 08:03] VITALS: BP 130/79; PULSE 67; RESP 20; O2SAT 98
== END 2022-04-27 08:10 | disposition home or self-care (01) ==
PROVIDERS: PCP Family Medicine; Visit Provider Internal Medicine Gastroenterology
PROC: 0DJD8ZZ Inspection of Lower Intestinal Tract, Via Natural or Artificial Opening Endoscopic (ICD-10-PCS; CPT 45378; principal; 2022-04-27 07:30)
DX: Z12.11 Encounter for screening for malignant neoplasm of colon (principal); D12.2 Benign neoplasm of ascending colon; D12.4 Benign neoplasm of descending colon; K64.8 Other hemorrhoids; I25.10 Atherosclerotic heart disease of native coronary artery without angina pectoris; E13.9 Other specified diabetes mellitus without complications; J45.909 Unspecified asthma, uncomplicated; E78.5 Hyperlipidemia, unspecified; F41.9 Anxiety disorder, unspecified; F32.A Depression, unspecified; I10 Essential (primary) hypertension; K21.9 Gastro-esophageal reflux disease without esophagitis; F17.210 Nicotine dependence, cigarettes, uncomplicated; E66.9 Obesity, unspecified; Z68.34 Body mass index [BMI] 34.0-34.9, adult; Z79.82 Long term (current) use of aspirin; Z79.899 Other long term (current) drug therapy; Z79.84 Long term (current) use of oral hypoglycemic drugs
CPT/HCPCS: 45385; 82948; 88305; J2704; J7120

== ENCOUNTER 2022-05-07 11:09 | Outpatient (CLI) | payer BC, SELFPAY ==
--- NOTE | ~2022-05-07 | CT_ITS ---
EXAMINATION: CT lumbar spine wo con DATE: 05/07/2022 11:28 INDICATION: Low back pain. Degenerative disc disease. Radiculopathy. TECHNIQUE: Computed tomography (CT) of the lumbar spine was performed without intravenous contrast. A utomated exposure control and iterative reconstruction technique were employed. The dose-length produ ct was 1307.67 mGy-cm. COMPARISON: Lumbar spine MRI 03/03/2022, chest CT 08/07/2021 FINDINGS: There is 3 degrees levocurvature of lumbar spine. There are 12 pairs of ribs. L5 is a trans itional segment. There is 4 mm anterolisthesis of L3 on L4. There is mild chronic anterior wedging of T11 vertebral body. There is mildly decreased disc height at T11-T12 and L3-L4. The following disc l evels are specifically discussed: L1-L2: The disc is bulging. There is severe right and moderate left facet joint osteoarthritis. There is mild bilateral neural foraminal stenosis. There is mild central canal stenosis. L2-L3: The disc is bulging. There is severe bilateral facet joint osteoarthritis. There is mild bilat eral neural foraminal stenosis. There is mild central canal stenosis. L3-L4: The disc is bulging. There is severe bilateral facet joint osteoarthritis. There is moderate r ight and mild left neural foraminal stenosis. There is moderate central canal stenosis. L4-L5: The disc does not extend beyond the endplate margin. There is severe bilateral facet joint ost eoarthritis. There is mild bilateral neural foraminal stenosis. There is no central canal stenosis. L5-S1: The disc does not extend beyond the endplate margin. There is no facet joint osteoarthritis. T here is no neural foraminal stenosis. There is no central canal stenosis. IMPRESSION: 1. Moderate right neural foraminal stenosis and central canal stenosis at L3-L4. Otherwise mild lumba r spondylosis. Reviewed, dictated and finalized at location A. IMPRESSION: 1. Moderate right neural foraminal stenosis and central canal stenosis at L3-L4 . Otherwise mild lumbar spondylosis.
== END 2022-05-07 11:10 | disposition home or self-care (01) ==
LOC: CHSIMG 11:10
PROVIDERS: PCP Nurse Practitioner Family; Visit Provider Physician Assistant
DX: M54.50 Low back pain, unspecified (principal); M51.36 Other intervertebral disc degeneration, lumbar region; M54.16 Radiculopathy, lumbar region; M43.16 Spondylolisthesis, lumbar region; M48.061 Spinal stenosis, lumbar region without neurogenic claudication
CPT/HCPCS: 72131

== ENCOUNTER 2022-08-27 11:12 | Outpatient (CLI) | payer BC, SELFPAY ==
[2022-08-27 11:28] LABS: Basophils Absolute Auto 0.09 K/mm3 (0.00-0.10); Eosinophils Absolute Auto 0.14 K/mm3 (0.02-0.50); Eosinophils Percent Auto 1.5 % (1.0-6.0); Hematocrit 45.1 % (35.0-49.0); Hemoglobin 14.1 g/dL (12.0-15.0); Immature Granulocyte Absolute 0.02 K/mm3 (0.00-0.00); Immature Granulocyte Percent A 0.2 % (0.0-0.0); Immature Platelet Fraction Pct 4.2 % (1.0-7.0); Lymphocytes Absolute Auto 4.37 K/mm3 (1.10-4.50); Lymphocytes Percent Auto 47.6 % (18.0-42.0); Mean Corpuscular HGB Conc 31.3 g/dL (32.0-36.0); Mean Corpuscular Volume 92.8 fL (78.0-102.0); Mean Platelet Volume 10.6 fl (9.2-11.8); Monocytes Absolute Auto 0.65 K/mm3 (0.10-0.90); Monocytes Percent Auto 7.1 % (2.0-11.0); Neutrophils Absolute Auto 3.9 K/mm3 (1.7-7.2); Neutrophils Percent Auto 42.6 % (50.0-70.0); Platelet Count Result 283 K/mm3 (150-420); Red Blood Count 4.86 M/mm3 (4.20-5.40); Red Cell Distribution Width 13.4 % (11.6-14.4); White Blood Count 9.2 K/mm3 (4.8-10.8)
[2022-08-27 11:48] LABS: Hemoglobin A1C 6.6 % (<5.7)
[2022-08-27 12:51] LABS: Alanine Aminotransferase 18 U/L (14-59); Albumin Level 3.6 g/dL (3.4-5.0); Alkaline Phosphatase 114 U/L (46-116); Anion Gap 11 mmol/L (8-16); Aspartate Amino Transferase 19 U/L (15-37); Bilirubin,Total 0.4 mg/dL (0.00-1.00); Blood Urea Nitrogen 11 mg/dL (7-18); Calcium 9.1 mg/dL (8.5-10.1); Carbon Dioxide 23 mmol/L (21-32); Chloride 106 mmol/L (98-108); Cholesterol 197 mg/dL (0-200); Estimated Glomerular Filt Rate > 60; Glucose 109 mg/dL (70-99); HDL Direct 36 mg/dL (40-60); LDL Cholesterol Calculated 102 mg/dL (<130); Magnesium 1.8 mg/dL (1.8-2.4); Osmolality Calculated 290 mOsm/kg (285-295); Potassium 4.7 mmol/L (3.5-5.1); Sodium 140 mmol/L (136-145); Total Protein 7.3 g/dL (6.4-8.2); Triglycerides 296 mg/dL (0-150)
[2022-08-30 17:06] LABS: Vitamin D 25 Hydroxy 18 ng/mL (30-100)
== END 2022-08-27 11:13 | disposition home or self-care (01) ==
LOC: CHSLAB 11:14
PROVIDERS: PCP Nurse Practitioner Family; Visit Provider Nurse Practitioner Family
DX: E78.5 Hyperlipidemia, unspecified (principal); E13.9 Other specified diabetes mellitus without complications; I10 Essential (primary) hypertension; Z79.899 Other long term (current) drug therapy
CPT/HCPCS: 36415; 80053; 80061; 82306; 83036; 83735; 85025; 85055

== ENCOUNTER 2023-04-08 11:37 | Outpatient (CLI) | payer BC, SELFPAY | END 2023-04-08 11:38 | disposition home or self-care (01) | LOC: CHSIMG 11:39 | PROVIDERS: PCP Nurse Practitioner Family; Visit Provider Nurse Practitioner Family | DX: M79.89 Other specified soft tissue disorders (principal); M79.672 Pain in left foot | CPT/HCPCS: 73630 ==

== ENCOUNTER 2023-04-22 10:09 | Outpatient (CLI) | payer BC, SELFPAY ==
[2023-04-22 11:05] LABS: Basophils Absolute Auto 0.07 K/mm3 (0.00-0.10); Basophils Percent Auto 0.7 % (0.0-1.0); Eosinophils Absolute Auto 0.15 K/mm3 (0.02-0.50); Eosinophils Percent Auto 1.5 % (1.0-6.0); Hemoglobin 13.5 g/dL (12.0-15.0); Immature Granulocyte Absolute 0.05 K/mm3 (0.00-0.00); Immature Granulocyte Percent A 0.5 % (0.0-0.0); Lymphocytes Absolute Auto 3.97 K/mm3 (1.10-4.50); Lymphocytes Percent Auto 39.4 % (18.0-42.0); Mean Corpuscular HGB Conc 32.1 g/dL (32.0-36.0); Mean Corpuscular Hemoglobin 29.5 pg (27.0-31.0); Mean Corpuscular Volume 91.7 fL (78.0-102.0); Neutrophils Absolute Auto 5.2 K/mm3 (1.7-7.2); Neutrophils Percent Auto 51.9 % (50.0-70.0); Platelet Count Result 318 K/mm3 (150-420); Red Blood Count 4.58 M/mm3 (4.20-5.40); Red Cell Distribution Width 14.1 % (11.6-14.4); White Blood Count 10.1 K/mm3 (4.8-10.8)
[2023-04-22 12:05] LABS: Anion Gap 9 mmol/L (8-16); Blood Urea Nitrogen 14 mg/dL (7-18); Carbon Dioxide 27 mmol/L (21-32); Chloride 109 mmol/L (98-108); Estimated Glomerular Filt Rate > 60; Glucose 102 mg/dL (70-99); Osmolality Calculated 300 mOsm/kg (285-295); Potassium 4.7 mmol/L (3.5-5.1); Sodium 145 mmol/L (136-145)
== END 2023-04-22 10:10 | disposition home or self-care (01) ==
LOC: CHSLAB 10:12
PROVIDERS: PCP Nurse Practitioner Family; Visit Provider Internal Medicine Cardiovascular Disease
DX: Z01.812 Encounter for preprocedural laboratory examination (principal); R07.9 Chest pain, unspecified; R94.39 Abnormal result of other cardiovascular function study
CPT/HCPCS: 36415; 80048; 85025

== ENCOUNTER 2023-05-22 15:17 | Outpatient (CLI) | payer BC, SELFPAY ==
--- NOTE | ~2023-05-22 | XR_ITS ---
AP view of the pelvis and AP and lateral views of the right hip Clinical history: Pain Findings: No acute fracture or dislocation is seen. Osseous alignment is anatomic. Bilateral hip and SI joint spaces are preserved. Probable calcified uterine fibroids. Impression: No significant abnormality is seen. Reviewed, dictated and finalized at [facility]. Impression: No significant abnormality is seen.
== END 2023-05-22 15:18 | disposition home or self-care (01) ==
LOC: CHSIMG 15:18
PROVIDERS: PCP Nurse Practitioner Family; Visit Provider Nurse Practitioner Family
DX: M25.551 Pain in right hip (principal)
CPT/HCPCS: 73502

== ENCOUNTER 2023-06-24 15:28 | Outpatient (NON) | payer BC, SELFPAY ==
[2023-06-24 15:37] LABS: Basophils Absolute Auto 0.06 K/mm3 (0.00-0.10); Basophils Percent Auto 0.6 % (0.0-1.0); Eosinophils Absolute Auto 0.13 K/mm3 (0.02-0.50); Eosinophils Percent Auto 1.3 % (1.0-6.0); Hematocrit 42.9 % (35.0-49.0); Hemoglobin 13.7 g/dL (12.0-15.0); Immature Granulocyte Absolute 0.03 K/mm3 (0.00-0.00); Immature Granulocyte Percent A 0.3 % (0.0-0.0); Lymphocytes Absolute Auto 4.09 K/mm3 (1.10-4.50); Lymphocytes Percent Auto 42.4 % (18.0-42.0); Mean Corpuscular HGB Conc 31.9 g/dL (32.0-36.0); Mean Corpuscular Hemoglobin 28.9 pg (27.0-31.0); Mean Corpuscular Volume 90.5 fL (78.0-102.0); Mean Platelet Volume 9.7 fl (9.2-11.8); Monocytes Percent Auto 7.3 % (2.0-11.0); Neutrophils Absolute Auto 4.6 K/mm3 (1.7-7.2); Neutrophils Percent Auto 48.1 % (50.0-70.0); Platelet Count Result 338 K/mm3 (150-420); Red Blood Count 4.74 M/mm3 (4.20-5.40); Red Cell Distribution Width 13.8 % (11.6-14.4); White Blood Count 9.7 K/mm3 (4.8-10.8)
[2023-06-24 15:59] LABS: Hemoglobin A1C 6.7 % (<5.7)
[2023-06-24 16:06] LABS: Alanine Aminotransferase 14 U/L (14-59); Albumin Level 3.3 g/dL (3.4-5.0); Alkaline Phosphatase 112 U/L (46-116); Anion Gap 12 mmol/L (8-16); Aspartate Amino Transferase < 10 U/L (15-37); Bilirubin,Total 0.4 mg/dL (0.00-1.00); Blood Urea Nitrogen 11 mg/dL (7-18); Calcium 9.1 mg/dL (8.5-10.1); Carbon Dioxide 23 mmol/L (21-32); Chloride 106 mmol/L (98-108); Cholesterol 162 mg/dL (0-200); Estimated Glomerular Filt Rate > 60; Glucose 89 mg/dL (70-99); HDL Direct 34 mg/dL (40-60); LDL Cholesterol Calculated 76 mg/dL (<130); Osmolality Calculated 290 mOsm/kg (285-295); Potassium 4.4 mmol/L (3.5-5.1); Sodium 141 mmol/L (136-145); Total Protein 6.8 g/dL (6.4-8.2); Triglycerides 262 mg/dL (0-150)
[2023-06-27 12:35] LABS: Vitamin D 25 Hydroxy 32 ng/mL (30-100)
== END 2023-06-24 15:29 | disposition home or self-care (01) ==
LOC: CHSLAB 15:29
PROVIDERS: Visit Provider Nurse Practitioner Family
DX: E78.5 Hyperlipidemia, unspecified (principal); Z13.6 Encounter for screening for cardiovascular disorders; E13.9 Other specified diabetes mellitus without complications; Z79.899 Other long term (current) drug therapy; I10 Essential (primary) hypertension
CPT/HCPCS: 36415; 80053; 80061; 82306; 83036; 85025

== ENCOUNTER 2023-12-26 11:52 | Outpatient (CLI) | payer OTHER, SELFPAY ==
[2023-12-26 12:09] LABS: Basophils Absolute Auto 0.05 K/mm3 (0.00-0.10); Basophils Percent Auto 0.4 % (0.0-1.0); Eosinophils Absolute Auto 0.15 K/mm3 (0.02-0.50); Eosinophils Percent Auto 1.2 % (1.0-6.0); Hematocrit 43.7 % (35.0-49.0); Hemoglobin 13.9 g/dL (12.0-15.0); Immature Granulocyte Absolute 0.06 K/mm3 (0.00-0.00); Immature Granulocyte Percent A 0.5 % (0.0-0.0); Lymphocytes Absolute Auto 4.03 K/mm3 (1.10-4.50); Lymphocytes Percent Auto 30.9 % (18.0-42.0); Mean Corpuscular HGB Conc 31.8 g/dL (32-36); Mean Corpuscular Hemoglobin 28.4 pg (27.0-31.0); Mean Corpuscular Volume 89.2 fL (78.0-102.0); Mean Platelet Volume 9.4 fl (9.2-11.8); Monocytes Absolute Auto 1.03 K/mm3 (0.10-0.90); Monocytes Percent Auto 7.9 % (2.0-11.0); Neutrophils Absolute Auto 7.72 K/mm3 (1.70-7.20); Neutrophils Percent Auto 59.1 % (50.0-70.0); Platelet Count Result 341 K/mm3 (150-420); Red Cell Distribution Width 14.3 % (11.6-14.4)
[2023-12-26 12:20] LABS: Creatinine Urine 118.25 mg/dL (40-278); MALB Creatinine Ratio 30.1 mg/g (0-30); Microalbumin Urine Random 35.7 mg/L
[2023-12-26 13:00] LABS: Hemoglobin A1C 6.1 % (<5.7)
[2023-12-26 13:53] LABS: Alanine Aminotransferase 19 U/L (14-59); Albumin Level 3.4 g/dL (3.4-5.0); Alkaline Phosphatase 115 U/L (46-116); Anion Gap 7 mmol/L (4-12); Aspartate Amino Transferase 12 U/L (15-37); Bilirubin,Total 0.5 mg/dL (0.00-1.00); Blood Urea Nitrogen 12 mg/dL (7-18); Calcium 9.1 mg/dL (8.5-10.1); Carbon Dioxide 29 mmol/L (21-32); Chloride 105 mmol/L (98-108); Cholesterol 172 mg/dL (0-200); Estimated Glomerular Filt Rate > 60; Glucose 81 mg/dL (70-99); HDL Direct 37 mg/dL (40-60); Iron 27 ug/dL (50-170); LDL Cholesterol Calculated 91 mg/dL (<130); Magnesium 1.7 mg/dL (1.8-2.4); Osmolality Calculated 290 mOsm/kg (285-295); Potassium 4.4 mmol/L (3.5-5.1); Sodium 141 mmol/L (136-145); Triglycerides 222 mg/dL (0-150)
[2023-12-28 03:48] LABS: Vitamin D 25 Hydroxy 44 ng/mL (30-100)
== END 2023-12-26 11:53 | disposition home or self-care (01) ==
LOC: CHSLAB 11:54
PROVIDERS: PCP Nurse Practitioner Family; Visit Provider Nurse Practitioner Family
DX: R53.83 Other fatigue (principal); E13.9 Other specified diabetes mellitus without complications; E78.5 Hyperlipidemia, unspecified; I10 Essential (primary) hypertension; Z79.899 Other long term (current) drug therapy
CPT/HCPCS: 36415; 80053; 80061; 82043; 82306; 83036; 83540; 83735; 85025

== ENCOUNTER 2024-06-17 11:26 | Outpatient (CLI) | payer OTHER, SELFPAY ==
[2024-06-17 11:58] LABS: Basophils Absolute Auto 0.06 K/mm3 (0.00-0.10); Basophils Percent Auto 0.6 % (0.0-1.0); Eosinophils Absolute Auto 0.15 K/mm3 (0.02-0.50); Eosinophils Percent Auto 1.5 % (1.0-6.0); Hematocrit 43.4 % (35.0-49.0); Hemoglobin 14.1 g/dL (12.0-15.0); Immature Granulocyte Absolute 0.05 K/mm3 (0.00-0.00); Immature Granulocyte Percent A 0.5 % (0.0-0.0); Lymphocytes Absolute Auto 3.88 K/mm3 (1.10-4.50); Lymphocytes Percent Auto 37.7 % (18.0-42.0); Mean Corpuscular HGB Conc 32.5 g/dL (32-36); Mean Corpuscular Hemoglobin 29.4 pg (27.0-31.0); Mean Corpuscular Volume 90.4 fL (78.0-102.0); Mean Platelet Volume 9.7 fl (9.2-11.8); Monocytes Absolute Auto 0.69 K/mm3 (0.10-0.90); Monocytes Percent Auto 6.7 % (2.0-11.0); Neutrophils Absolute Auto 5.46 K/mm3 (1.70-7.20); Platelet Count Result 342 K/mm3 (150-420); Red Cell Distribution Width 13.6 % (11.6-14.4); White Blood Count 10.3 K/mm3 (4.8-10.8)
[2024-06-17 12:16] LABS: Hemoglobin A1C 6.2 % (<5.7)
[2024-06-17 12:26] LABS: Alanine Aminotransferase 20 U/L (14-59); Albumin Level 3.2 g/dL (3.4-5.0); Alkaline Phosphatase 112 U/L (46-116); Anion Gap 7 mmol/L (4-12); Aspartate Amino Transferase 10 U/L (15-37); Bilirubin,Total 0.3 mg/dL (0.00-1.00); Blood Urea Nitrogen 13 mg/dL (7-18); Carbon Dioxide 27 mmol/L (21-32); Chloride 107 mmol/L (98-108); Cholesterol 162 mg/dL (0-200); Estimated Glomerular Filt Rate > 60; Glucose 97 mg/dL (70-99); HDL Direct 33 mg/dL (40-60); Iron 54 ug/dL (50-170); LDL Cholesterol Calculated 85 mg/dL (<130); Magnesium 2.1 mg/dL (1.8-2.4); Osmolality Calculated 292 mOsm/kg (285-295); Potassium 4.4 mmol/L (3.5-5.1); Sodium 141 mmol/L (136-145); Total Protein 6.8 g/dL (6.4-8.2); Triglycerides 222 mg/dL (0-150)
[2024-06-18 21:03] LABS: Vitamin D 25 Hydroxy 40 ng/mL (30-100)
== END 2024-06-17 11:27 | disposition home or self-care (01) ==
PROVIDERS: PCP Nurse Practitioner Family; Visit Provider Nurse Practitioner Family
DX: D64.9 Anemia, unspecified (principal); E78.5 Hyperlipidemia, unspecified; Z13.6 Encounter for screening for cardiovascular disorders; E13.9 Other specified diabetes mellitus without complications; E11.9 Type 2 diabetes mellitus without complications; Z79.899 Other long term (current) drug therapy; E83.42 Hypomagnesemia; I10 Essential (primary) hypertension
CPT/HCPCS: 36415; 80053; 80061; 82306; 83036; 83540; 83735; 85025

== ENCOUNTER 2024-11-26 11:46 | Outpatient (CLI) | payer OTHER, SELFPAY ==
--- NOTE | 2024-11-26 11:58 | ECG_ITS ---
Test Date: 2024-11-26 12:10:07 Measurements Intervals Goff Rate: 61 P: 66 ND: 190 QRS: 70 QRSD: 86 T: 82 QT: 452 QTc: 456 Interpretive Statements SINUS RHYTHM LOW QRS VOLTAGE IN PRECORDIAL LEADS [QRS DEFLECTION < 1.0 mV IN CHEST LEADS] No previous ECG available for comparison Electronically Signed On 11-26-2024 12:13:47 CDT by Baltazar Fisher M.D.
[2024-11-26 12:01] LABS: Basophils Absolute Auto 0.06 K/mm3 (0.00-0.10); Basophils Percent Auto 0.5 % (0.0-1.0); Eosinophils Absolute Auto 0.12 K/mm3 (0.02-0.50); Eosinophils Percent Auto 1.1 % (1.0-6.0); Hematocrit 49.3 % (35.0-49.0); Hemoglobin 15.6 g/dL (12.0-15.0); Immature Granulocyte Absolute 0.04 K/mm3 (0.00-0.00); Immature Granulocyte Percent A 0.4 % (0.0-0.0); Lymphocytes Absolute Auto 3.39 K/mm3 (1.10-4.50); Lymphocytes Percent Auto 29.9 % (18.0-42.0); Mean Corpuscular HGB Conc 31.6 g/dL (32-36); Mean Corpuscular Volume 91.6 fL (78.0-102.0); Mean Platelet Volume 9.5 fl (9.2-11.8); Monocytes Absolute Auto 0.76 K/mm3 (0.10-0.90); Monocytes Percent Auto 6.7 % (2.0-11.0); Neutrophils Absolute Auto 6.96 K/mm3 (1.70-7.20); Neutrophils Percent Auto 61.4 % (50.0-70.0); Platelet Count Result 383 K/mm3 (150-420); Red Blood Count 5.38 M/mm3 (4.20-5.40); Red Cell Distribution Width 13.9 % (11.6-14.4); White Blood Count 11.3 K/mm3 (4.8-10.8)
[2024-11-26 12:15] LABS: Hemoglobin A1C 6.5 % (<5.7)
--- OUTSIDE RECORDS SUMMARY | 2024-11-26 12:34 | XMS_ITS | Referral Summary ---
Author Organization [facility] Address [address] [place] [id number] Care Team Providers Care Stucco Worker Name Role Phone Galina LORENZO MD, David Singh Unavailable [phone] Marjan Robertson MD Unavailable [phone] Dangelo Brock MD Unavailable Ag Roblero MD, Chepe Meyers Unavailable [phone] Lana Bailey NP Primary Care Provider [phone] Encounters Date Type Department Care Team Description 08/31/2024 Telephone [facility] Medical Group Cardiology [address] [place] [address] Marjan Robertson MD PA for Repatha from Last 3 Months Allergies Active Allergy Reactions Criticality Noted Date Comments Celecoxib Swelling Medium 02/09/2018 Sulfa (Sulfonamide Antibiotics) Swelling Medium 11/2017 Medications metFORMIN (GLUCOPHAGE) 500 mg tablet Take 1 tablet (500 mg total) by mouth 2 (two) times a day with meals Active fexofenadine (BENNIE) 180 mg tablet Take 1 tablet (180 mg total) by mouth daily as needed Active omeprazole (PriLOSEC) 40 mg capsule Take 1 capsule (40 mg total) by mouth daily Active atorvastatin (LIPITOR) 80 mg tablet Take 1 tablet (80 mg total) by mouth nightly 30 tablet 04/28/20 19 05/06/ 029 Active aspirin 81 mg enteric coated tablet Take 1 tablet (81 mg total) by mouth daily Active escitalopram (LEXAPRO) 20 mg tablet Take 1 tablet (20 mg total) by mouth daily Active metoprolol tartrate (LOPRESSOR) 25 mg immediate release tablet Take 1 tablet (25 mg total) by mouth 2 (two) times a day 60 tablet 11 09/04/[address] (VOLTAREN) 50 mg EC tablet Take 1 tablet (50 mg total) by mouth 2 (two) times a day as needed Active cyclobenzaprine (FLEXERIL) 10 mg tablet Take 1 tablet (10 mg total) by mouth 3 (three) times a day as needed for muscle spasms Active Trulicity 0.75 mg/0.5 mL pen injector ADMINISTER 0.75 MG UNDER THE SKIN WEEKLY 08/15/20 22 Active varenicline tartrate (CHANTIX ALONSO) 0.5 mg (11)- 1 mg (42) tabletIndications: Tobacco abuse counseling Take 0.5mg daily for 3 days, then 0.5mg bid for three days then 1 mg bid after that. 52 tablet 1 03/18/20 23 Active Additional Information Patient not taking.Reported on 08/26/2024 topiramate (TOPAMAX) 25 mg tablet Take 1 tablet (25 mg total) by mouth 2 (two) times a day 03/21/20 23 Active albuterol HFA (PROVENTIL HFA,VENTOLIN HFA,PROAIR HFA) 90 mcg/actuation inhaler Inhale 1 puff every 4 (four) hours as needed 01/26/20 23 Active ezetimibe (ZETIA) 10 mg tabletIndications: Coronary artery disease involving [place]apache coronary artery of [place]apache heart,Dyslipidemia Take 1 tablet by mouth once daily 90 tablet 06/22/20 24 Active Aimovig Autoinjector 70 mg/mL auto-injector subcutaneous injection INJECT 1 SUBCUTANEOUSLY ONCE EVERY MONTH 08/03/20 24 Active FeroSuL 325 mg (65 mg iron) tablet Take 1 tablet (325 mg total) by mouth daily 08/23/20 24 Active ipratropium-albute roL (DUO-NEB) 0.5-2.5 mg/3 mL nebulizer solution 07/23/20 24 Active cholecalciferol (Vitamin D3) 2000 unit tablet Active magnesium chloride 64 mg of elemental magnesium delayed release tabletIndications: hypomagnesemia Take 1 tablet (64 mg of elemental magnesium total) by mouth Active isosorbide mononitrate ER (IMDUR) 30 mg 24 hr tablet Take 1 tablet (30 mg total) by mouth daily 30 tablet 3 08/26/20 24 Active losartan (COZAAR) 25 mg tabletIndications: Essential hypertension Take 1 tablet by mouth once daily 270 tablet 08/27/20 24 Active evolocumab (Repatha SureClick) 140 mg/mL pen injectorIndication s:Coronary artery disease involving [place]apache coronary artery of [place]apache heart, unspecified whether angina present,Mixed hyperlipidemia Inject 1 mL (140 mg total) under the skin every 14 (fourteen) days 2 mL 11 09/11/19 25 Active Active Problems Problem Noted Date Diagnosed Date Abnormal cardiovascular stress test 04/03/2023 Left-sided weakness 04/27/2019 Tingling in left arm 04/27/2019 Positive D dimer 04/27/2019 Type 2 diabetes mellitus wit h circulatory disorder, without long-term current use of insulin 04/27/2019 Coronary artery disease of n ative artery of [place] heart with stable angina pectoris 03/18/2018 Mixed hyperlipidemia 03/18/2018 Assessment & Plan (03/18/2018 1:48 PM CDT): Continue Lipitor. Tobacco abuse counseling 03/18/2018 Assessment & Plan (03/18/2018 1:48 PM CDT): Was counseled about the importance of quitting smoking. Essential hypertension 03/18/2018 Assessment & Plan (03/18/2018 1:49 PM CDT): Controlled. Continue current treatment. Chest pain in adult Assessment & Plan (03/18/2018 1:48 PM CDT): She does have focal stenosis of the distal LAD 80% at the apex that is not amenable for intervention. Continue nitrates, aspirin. If he remains symptomatic then we may add beta-lexy. Dyslipidemia Tobacco abuse Injury of toe on right foot Social History Tobacco Use Types Packs/Day Years Used Date Smoking Tobacco: Every Day Cigarettes 0.8 35 Smokeless Tobacco: Never Tobacco Cessation:Ready to Q uit: Not Asked; Counseling Given: Not Answered Comments:1/2 Pack per Day Alcohol Use Standard Drinks/Week Comments No 0 (1 standard drink = 0.6 oz pur e alcohol) Social Connection and Isolat ion Panel [NHANES] Answer Date Recorded Frequency of Communication w ith Friends and Family More than three times a week 04/28/2019 Frequency of Social Gatherin gs with Friends and Family Once a week 04/28/2019 Attends [employer] Services Never 04/28 Active Member of Clubs or Organizations Yes 04/28/2019 Attends Club or Organization Meetings More than 4 times per year 04/28/2019 Marital Status 04/28/2019 AUDIT-C Answer Date Recorded Q1: How often do you have a drink containing alcohol? Never 04/24/2023 Q2: How many drinks containi ng alcohol do you have on a typical day when you are drinking? Patient does not drink Q3: How often do you have si x or more drinks on one occasion? Never 04/24/2023 Overall Financial Resource Strain (CARDIA) Answe r Date Recorded Difficulty of Paying Living Expenses Not hard at all 04/28/2019 PHQ-2 Answer Date Recorded PHQ-2 Score 0 04/29/2019 PRAPARE - Transportation Answer Date Re corded Lack of Transportation (Medical) No 04/28/2019 Lack of Transportation (Non-Medical) No 04/28/2019 Personal Safety Answer Date Recorded Have you ever been in or are you currently in a harmful physical or emotional relationship or is someone making you feel afraid or unsafe? Denies 04/24/2023 Comments No Sex and Gender Information Value Date Recorded Sex Assigned at Not on file Legal Sex Female 6:12 PM VACUUM FORM OPERATOR Gender Identity Not on file Sexual Orientation Not on file Last Filed Vital Signs Vital Sign Reading Time Taken Comments Blood Pressure 124/60 08/26/2024 11:30 AM VACUUM FORM OPERATOR Pulse 65 08/26/2024 11:30 AM VACUUM FORM OPERATOR Temperature 36.7 C (98.1 F) 04/24/2023 8:31 AM CDT Respiratory Rate 18 04/24/2023 8:31 AM CDT Oxygen Saturation 95% 08/26/2024 11:30 AM VACUUM FORM OPERATOR Inhaled Oxygen Concentration - - Weight 80.7 kg (178 lb) 08/26/2024 11:30 AM VACUUM FORM OPERATOR Height 160 cm (5' 3 ) 08/26/2024 11:30 AM VACUUM FORM OPERATOR Body Mass Index 31.53 08/26/2024 11:30 AM VACUUM FORM OPERATOR Plan of Treatment Not on file Medical Devices Implanted Type Area Online Services Manager Device Identifier Shelf Expiration Date Model / Serial / Lot [employer] Software Device Closure Vascade Od5 Fr Femoral Artery [id number] - [id number] Implanted:Qty: 1 on 04/24/2023 by Marjan Robertson MD at [facility] [employer] [facility] 01/10/2025 [id number] / / [id number] Procedures Procedure Name Priority Date/Time Associated Diagnosis Comments POCT LIPID PANEL Routine 08/26/2024 11:3 4 AM VACUUM FORM OPERATOR Lipid screening EGFR Routine 04/28/2019 5:23 AM CDT HEMOGLOBIN A1C Routine 04/27/2019 2:50 PM CDT from Last 3 Months or Most Recently Relevant to Health Maintenance Results * POCT lipid panel (08/26/2024 11:34 AM VACUUM FORM OPERATOR) Cholesterol, POC 154 mg/dL HDL, POC 30 mg/dL Triglycerides, POC 190 mg/dL LDL Cholesterol POC 86 mg/dL Chol/HDL Ratio, POC 2.8 Non-HDL Cholesterol, POC 124 mg/dL Cholesterol Total, POC 154 mg/dL Capillary blood 08/26/2024 1 1:34 AM VACUUM FORM OPERATOR Laly Israel NP POINT OF CARE TEST ORDERABLE S Final Result * eGFR (04/28/2019 5:23 AM CDT) eGFR 96 mL/min/1.7 3 m2 MICHELLE VASQUEZ Comment: Interpretive Data Reference Interval Normal >/= 90 mL/min/1.73m2 Mildly decreased* 60 - 89 mL/min/1.73m2 Mildly to moderately decreased 45 - 59 mL/min/1.73m2 Moderately to severely decreased 30 - 44 mL/min/1.73m2 Severely decreased 15 - 29 mL/min/1.73m2 Kidney Failure < 15 mL/min/1.73m2 *Relative to young adult level If -Slovenian multiply value by 1.16. Estimated glomerular filtration rate is determined by the CKD-EPI equation recommended by the National Kidney Foundation (KDIGO 2012 Clinical Practice Guideline for the Evaluation and Management of Chronic Kidney Disease. Kidney Intnl Suppl Sep 2012;3:1). The CKD-EPI equation should not be used for patients with unstable renal function and has not been validated in children and those over 70. Current interpretive data was last reviewed 2016. Blood specimen (specimen) 04/28/2019 5:23 AM CDT 04/28/2019 5:42 AM CDT Ramiro Maya MD LAB BLOOD ORDERABLES F inal Result Performing Organization Address City/[facility] Co de Phone Number MICHELLE VASQUEZ [phone] [email or web address] [address] * (ABNORMAL) Hemoglobin A1c (04/27/2019 2:50 PM CDT) Hgb A1C 6.8(H) 4.0 - 5.6 % MICHELLE Estimated Average Glucose 148 mg/dL MICHELLE Comment: The ADA recommends reporting an estimated Average Glucose (eAG) with all Hemoglobin A1c results using the equation derived from a study of 507 normal and diabetic adults. Minority populations were underrepresented and children were not included. (Diabetes Care 31:3072-9942, 2008). The eAG is not equivalent to a fasting glucose. Blood specimen (specimen) 04/27/2019 2:50 PM CDT 04/27/2019 2:59 PM CDT Ramiro Maya MD LAB BLOOD ORDERABLES F inal Result Performing Organization Address City/[facility]/ZIP Co de Phone Number MICHELLE VASQUEZ [phone] [email or web address] [address] from Last 3 Months or Most Recently Relevant to Health Maintenance Insurance [place] CHO[place] [facility] [facility] [place] Advance Directives For more information, please contact: [phone] * Full Code (Latest Code Status on File) Date Activated Date Inactivated Comments 04/24/2023 11:35 AM 04/24/2023 5:19 PM * Full Code Date Activated Date Inactivated Comments 04/27/2019 11:34 AM 04/29/2019 3:15 AM * Full Code Date Activated Date Inactivated Comments 02/09/2018 6:19 PM 02/10/2018 2:29 PM Care Teams Stucco Worker Relationship Specialty Start Date End Date Lana Bailey, DRIER TRANSFER CAR OPERATOR [address] [place] [address] PCP - General Nurse Practitioner 10/30/21 [place] [address] [facility] [address], [place] [id number] Consulting Physician Neurology 04/28/19 [place] [id number] [address] Consulting Physician Interventional Cardiology 04/28/19 [place] [address] [facility] [address] [place] [address] Consulting Physician Gastroenterology 04/28/19 [place] [id number] [address] Surgeon Orthopedic Surgery 04/28/19
--- OUTSIDE RECORDS SUMMARY | 2024-11-26 12:34 | XMS_ITS | Encounter Summary ---
Author Organization [facility] Healthcare Address [address] [place] [address] Care Team Providers Care Risk Management Analyst Name Role Phone No, Physician Primary Care Provider [phone] Encounter Details Date Type Department Care Team (Late st Contact Info) Description 04/16/2017 11:30 AM CDT Hospital Encounter [facility] Procedure Holding [address] [place] [address] Marjan Robertson MD [address] [place] [id number] Social History Tobacco Use Types Packs/Day Years Used Date Smoking Tobacco: Every Day Cigarettes 0.8 35 Smokeless Tobacco: Never Comments:1/2 Pack per Day Alcohol Use Standard Drinks/Week Comments No 0 (1 standard drink = 0.6 oz pur e alcohol) Social Connection and Isolat ion Panel [NHANES] Answer Date Recorded Frequency of Communication w ith Friends and Family More than three times a week 04/28/2019 Frequency of Social Gatherin gs with Friends and Family Once a week 04/28/2019 Attends [employer] Never 04/28 Active Member of Clubs [...] on file Legal Sex 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 Never 04/24/2023 8:28 AM Nhi Soto RN Q2: How many drinks containing alcohol do you have on a typical day when you are drinking? Patient does not drink 04/24/2023 8:28 AM Nhi Soto RN Q3: How often do you have six or more drinks on one occasion? Never 04/24/2023 8:28 AM Nhi Soto RN documented as of this encounter Consult Notes * Miscellaneous, Not In File - 04/16/2017 5:00 AM CDT CONSULTATION REPORT Patient: TRISH PERKINS Service Date: 04/16/2017 Account: [id number] Room No: : 1960 Patient Type: [facility] Attend.: Marjan Robertson M.D. Admit Date: 04/16/2017 Consult.: Marjan Robertson M.D. Disch. Date: CARDIOLOGY CONSULTATION. CONSULTING PHYSICIAN Marjan Robertson M.D. REASON FOR CONSULTATION Chest pain. HISTORY OF PRESENT ILLNESS This is a 56-year-old white female with a past medical history of hypertension, diabetes, hyperlipidemia, a smoker, and obesity. She presented to the hospital on April 12, 2017 chiefly complaining of chest pain, and at that time an OH was ruled out. She underwent a stress echocardiogram that showed basically anteroseptal hypokinesis at peak exercise, consistent with LAD territory ischemia. Also during the stress test she had chest tightness relieved post exercise. At that time, the patient was discharged home, and she was scheduled as an outpatient to have an elective cardiac cath today, however, when she was at home last night she started to have central chest tightness with no aggravating or relieving factors and no radiation. She denied shortness of breath, palpitations, orthopnea, paroxysmal nocturnal dyspnea, lower limb edema, and no syncope. On presentation here troponins x3 negative, and her EKG shows basically sinus rhythm with poor R-wave progression and possible Q-waves in leads III and AVF. No active ischemic changes. REVIEW OF SYSTEMS General: Denies fever or chills or weight loss. HEENT: No blurring of vision or mouth ulcers. Respiratory: No shortness of breath or cough. Cardiovascular: Admits to chest pain but no palpitations. GI: No nausea, vomiting, or diarrhea. Genitourinary: No dysuria or frequency. Neurological: No headache or focal neurologic deficit. Skin: No rashes or ulceration. Psychiatric: No depression or anxiety. Hematologic: No active bleeding or bruising. PAST MEDICAL HISTORY 1. Diabetes. 2. Hypertension. 3. Hyperlipidemia. 4. Obesity. PAST SURGICAL HISTORY None. ALLERGIES SHE IS ALLERGIC TO CELEBREX AND SULFA. HOME MEDICATIONS Include. 1. Metformin 500 mg daily. 2. Cyclobenzaprine 10 mg p.r.n. t.i.d. 3. Fexofenadine 180 mg daily. 4. Citalopram 10 mg daily. 5. Naproxen 500 mg p.r.n. every 12 hours. 6. Lipitor 40 mg daily. 7. Prilosec 40 mg daily. 8. Flonase as needed. 9. Amlodipine 5 mg daily. FAMILY HISTORY Extensive family history of coronary artery disease in mom, dad, brothers, and sisters. SOCIAL HISTORY She is smoker a half pack per day. 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 PHYSICAL EXAMINATION Basically she is afebrile. Heart rate 90 beats per minute. Blood pressure 130/74, saturating 97% on room air. HEENT: Anicteric. Conjunctivae pink. No exophthalmus. Clear oral mucosa. Neck: No thyromegaly. Respiratory: Clear to auscultation bilaterally. Cardiovascular: Normal S1, S2. No S3, S4, murmur, or added sounds. GI: Soft, abdomen, nontender, no organomegaly. Musculoskeletal: No back or joint deformities. Skin: No rashes or ulceration. Neurological: Alert oriented x3. No focal deficits. Psychiatric: Normal mood and affect. Hematologic: No active bleeding or bruising. So basically on review of the lab again brain natriuretic peptide is 58. Sodium 139, potassium 3.8, creatinine 0.8, calcium 9.3. CBC shows white cell count 11.4, platelets 321, and hemoglobin 14. Her previous white cell count was 10.3 on April 12 so it is slightly higher, and the chest x-ray shows mild right basilar atelectasis. ASSESSMENT/PLAN This is 56-year-old female with unstable angina and positive stress test who was scheduled to undergo heart catheterization today, but she presented yesterday to the emergency room because of chest pain. Myocardial infarction was ruled out. So the plan today is to schedule her for heart catheterization. We will continue her on aspirin, and after the catheterization we will discuss the further recommendations. Electronically Authenticated by: Marjan Robertson MD On 04/17/2017 01:55 PM CDT Teodoro Dorado/shandra TD: 04/16/2017 10:46 documented in this encounter Plan of Treatment Not on file documented as of this encounter Visit Diagnoses Not on filedocumented in this encounter Care Teams Risk Management Analyst Relationship Specialty Start Date End Date No, Physician PCP - General 04/12/17 03/13/18 documented as of this encounter
--- OUTSIDE RECORDS SUMMARY | 2024-11-26 12:34 | XMS_ITS | Clinical Summary ---
Author Organization [facility] Address [address] [place] [id number] Care Team Providers Care Sort Supervisor Name Role Phone Galina LORENZO MD, David Singh Unavailable Marjan Robertson MD Unavailable [phone] Dangelo Brock MD Unavailable Ag Roblero MD, Chepe Meyers Unavailable [phone] Lana Bailey NP Primary Care Provider [phone] Allergies Active Allergy Reactions Criticality Noted Date [...] by mouth nightly 30 tablet 04/28/20 19 029 Active aspirin 81 mg enteric coated [...] 10 mg tabletIndications: Coronary artery disease involving tazlina coronary artery of tazl[place] heart,Dyslipidemia Take 1 tablet by mouth once [...] 270 tablet 08/27/20 24 Active evolocumab (Repatha Sera) 140 mg/mL pen injectorIndication s:Coronary artery disease involving tazlina coronary artery of t[place] heart, unspecified whether angina present,Mixed hyperlipidemia Inject [...] artery disease of n ative artery of tazlina heart with stable angina pectoris 03/18/2018 Mixed [...] abuse Injury of toe on right foot Encounters Date Type Department Care Team Description 08/31/2024 Telephone [facility] Cardiology [address] [place] [address] Marjan Robertson MD PA for Repatha from Last 3 Months Surgical History Surgery Date Site/Laterality Comments APPENDECTOMY CARDIAC CATHETERIZATION WRIST SURGERY Bilateral Medical History Medical History Date Comments Hypertension Diabetes mellitus (HCC) Hyperlipidemia Chest pressure CAD (coronary artery disease) Type 2 diabetes mellitus (HCC) GERD (gastroesophageal reflux disease) Family History Medical History Relation Name Comments Diabetes Brother Diabetes Father Transient ischemic attack Father Diabetes Mother Renal tubular acidosis Mother Transient ischemic attack Mother Diabetes Sister Transient ischemic attack Sister Relation Name Status Comments Brother Alive Father Mother Sister Alive Social History Tobacco Use Types Packs/Day Years [...] and Family Once a week 04/28/2019 Attends [employer] Never 04/28 Active Member of Clubs [...] on file Legal Sex Female 6:12 PM [employer] Gender Identity Not on file Sexual Orientation Not on file Obstetrics History Last Filed Vital Signs Vital Sign Reading Time Taken Comments Blood Pressure 124/60 08/26/2024 11:30 AM [employer] Pulse 65 08/26/2024 11:30 AM [employer] Temperature 36.7 C (98.1 F) 04/24/2023 8:31 AM CDT Respiratory Rate 18 04/24/2023 8:31 AM CDT Oxygen Saturation 95% 08/26/2024 11:30 AM [employer] Inhaled Oxygen Concentration - - Weight 80.7 kg (178 lb) 08/26/2024 11:30 AM [employer] Height 160 cm (5' 3 ) 08/26/2024 11:30 AM [employer] Body Mass Index 31.53 08/26/2024 11:30 AM [employer] Plan of Treatment Health Maintenance Due Date Last Done Comments Albumin Creatinine Ratio, Urine 1960 Breast Cancer Screening-Mammogram 1960 Cervical Cancer Screening 1960 Colon Cancer Screening-Colonoscopy 1960 Hepatitis C Screening 1960 Dilated Eye Exam 1960 Foot Exam 1960 DTaP/Tdap/Td Vaccine (1 - Tdap) 1971 Hepatitis B Screening 1978 Regular Well Visit/Exam 18-64 1978 Pneumococcal vaccine <65 (1 of 2 - PCV) 1979 Lung Cancer Screening 2010 Zoster Vaccine (1 of 2) 2010 Hemoglobin A1C 10/28/2019 04/27/2019, 02/10/2018 Depression Screening 04/27/2020 04/27/2019, 04/27/20 19 eGFR 04/28/2020 04/28/2019, 04/09, 02/10/2018, Additional history exists Covid-19 Vaccine (3 - 2023-2 5 season) 2024 12/23/2020, 11/25/2020 Influenza Vaccine (#1) 2024 Lipid Panel 08/26/2025 08/26/2024, 03/09, 10/30/2021, Additional history exists Medical Devices Implanted Type Area Video Games Storywriter Device Identifier Shelf Expiration Date Model / Serial / Lot [facility] [employer] Device Closure Vascade Od5 Fr Femoral Artery [id number] - [id number] Implanted:Qty: 1 on 04/24/2023 by Marjan Robertson MD at [facility] 01/10/2025 [id number] / / [id number] Procedures Procedure Name Priority Date/Time Associated Diagnosis Comments POCT LIPID PANEL Routine 08/26/2024 11:3 4 AM [employer] Lipid screening EGFR Routine 04/28/2019 5:23 AM CDT HEMOGLOBIN A1C Routine 04/27/2019 2:50 PM CDT from Last 3 Months or Most Recently Relevant to Health Maintenance Results * POCT lipid panel (08/26/2024 11:34 AM [employer]) Cholesterol, POC 154 mg/dL HDL, POC 30 mg/dL Triglycerides, POC 190 mg/dL LDL Cholesterol POC 86 mg/dL Chol/HDL Ratio, POC 2.8 Non-HDL Cholesterol, POC 124 mg/dL Cholesterol Total, POC 154 mg/dL Capillary blood 08/26/2024 1 1:34 AM [employer] Laly Israel NP POINT OF CARE TEST ORDERABLE S Final Result * eGFR (04/28/2019 5:23 AM CDT) eGFR 96 mL/min/1.7 3 m2 MIHCELLE VASQUEZ Comment: Interpretive Data Reference Interval Normal >/= 90 mL/min/1.73m2 Mildly decreased* 60 - 89 mL/min/1.73m2 Mildly to moderately decreased 45 - 59 mL/min/1.73m2 Moderately to severely decreased 30 - 44 mL/min/1.73m2 Severely decreased 15 - 29 mL/min/1.73m2 Kidney Failure < 15 mL/min/1.73m2 *Relative to young adult level If -[place] multiply value by 1.16. Estimated glomerular filtration [...] ORDERABLES F inal Result Performing Organization Address [facility] de Phone Number MICHELLE VASQUEZ [id number] [address] [facility] [place] [address] * (ABNORMAL) Hemoglobin A1c (04/27/2019 2:50 PM CDT) Hgb A1C 6.8(H) 4.0 - 5.6 % MICHELLE Estimated Average Glucose 148 mg/dL MICHELLE Comment: The ADA recommends reporting an estimated Average Glucose (eAG) with all Hemoglobin A1c results using the equation derived from a study of 507 normal and diabetic adults. Minority populations were underrepresented and children were not included. (Diabetes Care 31:3658-3140, 2008). The eAG is not equivalent to a fasting glucose. Blood specimen (specimen) 04/27/2019 2:50 PM CDT 04/27/2019 2:59 PM CDT Ramiro Maya MD LAB BLOOD ORDERABLES F inal Result Performing Organization Address [facility] de Phone Number MICHELLE VASQUEZ [address] [facility] [place] [address] from Last 3 Months or Most Recently Relevant to Health Maintenance Insurance [employer] [place] CHOICE PRF [place] [employer] [facility] Advance Directives For more information, please contact: [phone] * Full Code (Latest Code Status on File) Date Activated Date Inactivated Comments 04/24/2023 11:35 AM 04/24/2023 5:19 PM * Full Code Date Activated Date Inactivated Comments 04/27/2019 11:34 AM 04/29/2019 3:15 AM * Full Code Date Activated Date Inactivated Comments 02/09/2018 6:19 PM 02/10/2018 2:29 PM Care Teams Sort Supervisor Relationship Specialty Start Date End Date Lana Bailey NP [address] [place] [address] PCP - General Nurse Practitioner 10/30/21 [place] [id number] [facility] [address] [place] [address] Consulting Physician Neurology 04/28/19 [place] [id number] [facility] [address], [place] [address] Consulting Physician Interventional Cardiology 04/28/19 [place] [id number] [address] Consulting Physician Gastroenterology 04/28/19 [place] [id number] [address] Surgeon Orthopedic Surgery 04/28/19
--- OUTSIDE RECORDS SUMMARY | 2024-11-26 12:35 | XMS_ITS | Clinical Summary ---
Author Organization [facility] Address [address] [place] [address] Phone Care Team Providers Care Platform Inspector Name Role Phone ROBERT ORTHOPEDIC ASSISTANTMCKAY Primary Care Provider [phone] JOSÉ LUIS HNASON LUIS DANIEL Noah Unavailable [phone] Reason for Visit and Chief Complaint The Chief Complaint is: pt is here with a fever, chills,fatigue,ma,santana,sorethroat and runny nose since yesterday Plan of Treatment - Return to the clinic if condition worsens or new symptoms arise - Last Documented On 11/07/2022 5:54PM ; [facility] - Follow-up visit as needed with an office visit if symptoms persist or worsen - Last Documented On 11/07/2022 5:54PM ; [facility] - Patient to call if problem develops - Last Documented On 11/07/2022 5:54PM ; [facility] Instructions to patient Go to the emergency room if condition worsens Last Documented On 3 5:49PM ; [facility] Watch for signs/symptoms of infection Last Documented On 3 5:49PM ; [facility] Watch for signs/symptoms of infection, return to the clinic if seen Last Documented On 3 5:49PM ; [facility] Assessments Includes: Assessments from this encounter Findings - Group A streptococcus: B hemolytic pharyngitis - Last Documented On 11/07/2022 5:54PM ; [facility] Instructions Includes: Instructions from this encounter Instructions to patient Go to the emergency room if condition worsens Last Documented On 3 5:49PM ; [facility] Watch for signs/symptoms of infection Last Documented On 3 5:49PM ; [facility] Watch for signs/symptoms of infection, return to the clinic if seen Last Documented On 3 5:49PM ; [facility] Medical Equipment - Implanted Devices Includes: Current Devices No Medical Equipment Recorded Medications Includes: Medications discussed during this encounter and other current Medications New / Renewed during this visit ROSALIND GONZALEZ-SURESH on 11/07/2022 Cephalexin 500 MG Oral Capsule Provider: ROSALIND WATT 10 day supply: 30 capsule, 0 refills Diagnosis: Streptococcal pharyngitis One tablet three times a day Pharmacy: [address] [phone] - Last Documented On 4 3:51PM By AMOR WALLACE ; [facility] Current Medications (continue as prescribed) Amoxicillin 875 MG Oral Tablet 02/06/2024 Provider: ZENA WEST Diagnosis: Streptococcal ph aryngitis One tablet twice a day Last Documented On 4 4:01PM By Zena WEST ; [facility] Aspirin 81 MG Oral Tablet Delayed Release 02/06/2024 Provider: Diagnosis: Last Documented On 4 3:55PM By AMOR WALLACE ; [facility] FeroSul 325 (65 Fe) MG Oral Tablet 01/23/2024 Provid er: MCKAY GONZALEZ Diagnosis: Last Documented On 4 3:55PM By AMOR WALLACE ; [facility] Aimovig 70 MG/ML Subcutaneou s Solution Auto-injector 01/22/2024 Provider: MCKAY Ordoñez VPK TEACHER Diagnosis: Last Documented On 4 3:55PM By AMOR WALLACE ; [facility] Omeprazole 40 MG Oral Capsul e Delayed Release 01/08/2024 Provider: MCKAY Ordoñez VPK TEACHER Diagnosis: Last Documented On 4 3:55PM By AMOR WALLACE ; [facility] SUMAtriptan Succinate 50 MG Oral Tablet 12/26/2023 P rovider: MCKAY JONES ORTHOPEDIC ASSISTANT Diagnosis: Last Documented On 4 3:55PM By AMOR WALLACE ; [facility] Isosorbide Mononitrate ER 30 MG Oral Tablet Extended Release 24 Hour 11/14/2023 Provider: MCKAY Rodrigues ANSHUINESSAGÓMEZ ORTHOPEDIC ASSISTANT Diagnosis: Last Documented On 4 3:54PM By AMOR WALLACE ; [facility] metFORMIN HCl 500 MG Oral Tablet 11/14/2023 Provider : MCKAY GARLANDPERLITA ORTHOPEDIC ASSISTANT Diagnosis: Last Documented On 4 3:54PM By AMOR WALLACE ; [facility] Ezetimibe 10 MG Oral Tablet 09/25/2022 Provider: Diagnosis: Last Documented On 09/29/2022 1:32PM By WENDY WALLACE ; [facility] Topiramate 25 MG Oral Tablet 09/25/2022 Provider: Diagnosis: Last Documented On 09/29/2022 1:32PM By WENDY WALLACE ; [facility] Metoprolol Tartrate 50 MG Oral Tablet 09/25/2022 Pro vider: Diagnosis: Last Documented On 09/29/2022 1:32PM By WENDY WALLACE ; [facility] Escitalopram Oxalate 20 MG Oral Tablet 09/25/2022 Pr ovider: Diagnosis: Last Documented On 09/29/2022 1:32PM By WENDY WALLACE ; [facility] Losartan Potassium 25 MG Oral Tablet 09/14/2022 Prov ider: Diagnosis: Last Documented On 09/29/2022 1:33PM By WENDY WALLACE ; [facility] Trulicity 0.75 MG/0.5ML Subcutaneous Solution Pen-inje ctor 2022 Provider: Diagnosis: Last Documented On 09/29/2022 1:33PM By WENDY WALLACE ; [facility] Vitamin D3 1.25 MG (40334 UT) Oral Capsule 09/04/2022 Provider: Diagnosis: Last Documented On 09/29/2022 1:33PM By WENDY WALLACE ; [facility] Atorvastatin Calcium 80 MG Oral Tablet 08/22/2022 Pr ovider: Diagnosis: Last Documented On 09/29/2022 1:33PM By WENDY WALLACE ; [facility] Past Medications on file Ciprofloxacin HCl 0.3% Ophthalmic Solution 09/29/2022 - 10/13/2022 Provider: BARBARA ELLINGTON NP Diagnosis: Hordeolum riveter pneumatic um left lower eyelid 1-2 gtts to left eye q 4 marta rs while awake x 7 days Last Documented On 09/29/2022 1:48PM By BARBARA ELLINGTON NP ; [facility] Cephalexin 500 MG Oral Capsule 09/29/2022 - 10/06/2022 Provider: BARBARA ELLINGTON NP Diagnosis: Cellulitis of fa ce 1 CAPSULE TWO TIMES A DAY x 7 days Last Documented On 09/29/2022 1:48PM By BARBARA ELLINGTON NP ; [facility] Medications Administered Includes: Administered Medications from this encounter No Administered Medications Recorded Vital Signs Includes: Vital Signs from this encounter Vital Name 11/07/2022 05:38P Blood Pressure Sitting (mmHg) 126/74 Pulse Rate-Sitting (bpm) 54 Respiration Rate (breaths/min) 22 Temp-Oral (F) 100.7 Height (in) 63 Weight (lb) 177 Body Mass Index 31.4 Body Surface Area 1.8 Oxygen Saturation (%) 92 Last Documented: On 11/07/2022 5:39PM ; [facility] Results Includes: Results discussed during this encounter Group A strep [facility] Ordered by ROSALIND [facility] on Collected: Reported: 11/07/2022 17:53 Last Documented On 3 5:53PM ; [facility] Reviewed by ROSALIND WATT on 11/07/2022; All test results are final unless otherwise noted. Rapid Strep pos A (Abnormal) Last Documented On 3 5:53PM ; [facility] LOT # AND EXP. DATE [id number] N (Normal) Last Documented On 3 5:53PM ; [facility] INT. QC ACCEPTABLE? yes N (Normal) Last Documented On 3 5:53PM ; [facility] History of Present Illness Includes: History of Present Illness from this encounter JUDD PERKINS is a 62 year old female. - Allergy list reviewed - Medication list reviewed - Fever - Feeling fine - Not feeling tired - No chills - Do not shake the whole body - Headache - No sinus pain - No neck pain - No eye symptoms - Nasal passage blockage (stuffiness) - Sore throat constantly - Triggered by swallowing - No ear symptoms - No nasal discharge - No postnasal drip - No sneezing - No nasal itching - No chest pain or discomfort - No dyspnea - No cough - No wheezing - Decreased appetite - No heartburn - No nausea - No vomiting - No abdominal pain - No diarrhea - No skin symptoms Pt to clinic for above symptoms x 2 days was exposed to strep Social History Description Last Updated Current smoker 11/07/2022 Last Documented On 3 5:54PM ; [facility] Smoking Status Unknown Procedures and Surgical History Includes: Procedures from this encounter Procedures Code Diagnosis Performing Provider Service L ocation Service Date continue current medication Last Documented On 3 5:49PM ; [facility] the options include close observation Last Documented On 3 5:49PM ; [facility] watch for signs/symptoms of infection Last Documented On 3 5:49PM ; [facility] watch for signs/symptoms of infection, r eturn to the clinic if seen Last Documented On 3 5:49PM ; [facility] Pt / family were notified th at strep pharyngitis testing was POSITIVE. Strep pharyngitis etiology, natural course, possible complications, and treatment options were discussed. Pt will start antibiotic therapy as ordered. Discussed with pt /family that pt is contagious for 24 hours after start of antibiotic therapy and the importance of completing full course of antibiotic therapy. Recommended replacement of oral care products after three days of antibiotic therapy to reduce risk reinoculation with strep. Observe for signs/symptoms of strep in pt contacts. Discussed with pt /family expected course of improvement. Pt may return to activities after completing 24 hours of antibiotic therapy and feel well. Family to call back if not better in 3 days or worsens Last Documented On 3 5:49PM ; [facility] Pt to use OTC fever/pain product as need ed per product instruction.~ Last Documented On 3 5:49PM ; [facility] plan of care reviewed and agreed to by t he patient Last Documented On 3 5:40PM ; [facility] Increase fluids Last Documented On 3 5:49PM ; [facility] Clinical summary provided to patient Last Documented On 3 5:49PM ; [facility] Medical History Includes: Medical History addressed during this encounter Description Last Updated Taking OTC medications 11/07/2022 Last Documented On 3 5:54PM ; [facility] Taking OTC pain medication / fever. Usin g Motrin 11/07/2022 Last Documented On 3 5:54PM ; [facility] Taking OTC pain medication /fever. Using Tylenol 11/07/2022 Last Documented On 3 5:54PM ; [facility] Family History Includes: Family History addressed during this encounter No Family History Recorded Review of Systems Includes: Review of Systems from this encounter Systemic: Fever and chills. Head: Headache. Otolaryngeal: Nasal discharge and sore throat. Mental Status Includes: Mental Status from this encounter No Mental Status Recorded Functional Status Includes: Functional Status from this encounter No Functional Status Recorded Physical Exam Includes: Physical Exam from this encounter Allergies Includes: Active Allergies Substance Type Reaction Onset Date Resolved Date Statu s Sulfa Antibiotics Allergy 09/29/2022 A ctive Last Documented On 02/06/2024 3:52PM ; [facility] Note: Feels Hot & Throat closes shut Encounters Encounter Provider Location Date Check-In Time Check-Out Time Diagnosis COVID SICK VISIT- ESTABLISHED PATIENT ROSALIND Loly WINKLER ORTHOPEDIC ASSISTANT-BC [facility] 11/08/19 23 5:13PM 5:48PM Pharyngitis Streptococcus, Group A: Beta Hemolytic Insurance Includes: Active Insurance Policies Plan Name Member ID Group # Subscriber Relationship Effect jesus Dates 1 - [employer] [facility] [id number] TRISH PERKINS Self Clinical Notes Includes: Clinical Notes from this encounter * Progress note Date Encounter Last Documented by 11/07/2022 COVID SICK VISIT- ESTABLISHED PA RICKY Last documented on 11/07/2022; 5:54 PM, ROSALIND WINKLER ORTHOPEDIC ASSISTANT-; [facility] Chief Complaint The Chief Complaint is: Pt is here with a fever, chills,fatigue,ma,santana,sorethroat and runny nose since yesterday. History of Present Illness TRISH PERKINS is a 62 year old female. - Allergy list reviewed - Medication list reviewed - Fever - Feeling fine - Not feeling tired - No chills - Do not shake the whole body - Headache - No sinus pain - No neck pain - No eye symptoms - Nasal passage blockage (stuffiness) - Sore throat constantly - Triggered by swallowing - No ear symptoms - No nasal discharge - No postnasal drip - No sneezing - No nasal itching - No chest pain or discomfort - No dyspnea - No cough - No wheezing - Decreased appetite - No heartburn - No nausea - No vomiting - No abdominal pain - No diarrhea - No skin symptoms Pt to clinic for above symptoms x 2 days was exposed to strep Current Medication - Atorvastatin Calcium 80 MG Oral Tablet 90 days, 0 refills - Diclofenac Sodium 50 MG Oral Tablet Delayed Release 15 days, 0 refills - Escitalopram Oxalate 20 MG Oral Tablet 30 days, 0 refills - Escitalopram Oxalate 20 MG Oral Tablet 30 days, 0 refills - Ezetimibe 10 MG Oral Tablet 30 days, 0 refills - Losartan Potassium 25 MG Oral Tablet 30 days, 0 refills - Metoprolol Tartrate 50 MG Oral Tablet 30 days, 0 refills - Topiramate 25 MG Oral Tablet 30 days, 0 refills - traMADol HCl 50 MG Oral Tablet 3 days, 0 refills - traMADol HCl 50 MG Oral Tablet 3 days, 0 refills - Trulicity 0.75 MG/0.5ML Subcutaneous Solution Pen-injector 28 days, 0 refills - Vitamin D3 1.25 MG (40134 UT) Oral Capsule 56 days, 0 refills Past Medical/Surgical History Reported: Medications: Taking OTC pain medication / fever. Using Motrin, [id number] /fever. Using Tylenol, and [id number] medications. Social History Tobacco use: Current smoker. Allergies - Sulfa Antibiotics Review Of Systems Systemic: Fever and chills. Head: Headache. Otolaryngeal: Nasal discharge and sore throat. Physical Findings - Vitals taken 11/07/2022 05:38 pm BP-Sitting 126/74 mmHg Pulse Rate-Sitting 54 bpm Respiration Rate 22 per min Temp-Oral 100.7 F Height 63 in Weight 177 lbs Body Mass Index 31.4 kg/m2 Body Surface Area 1.8 m2 Oxygen Saturation 92 % General Appearance: - Awake. - Alert. - Well developed. - Well nourished. - In no acute distress. Eyes: General/bilateral: Pupils: - PERRLA. Ears: Right Ear: Tympanic Membrane: - Normal. Left Ear: Tympanic Membrane: - Normal. Nose: General/bilateral: Discharge: - No nasal discharge. Sinus Tenderness: - No sinus tenderness. Pharynx: Oropharynx: - Tonsils showed abnormalities. - Tonsils were erythematous. - Inflamed. - Soft palate was normal. - Tonsils were not enlarged. - Tonsils showed no exudate. Mucosal: - Pharynx showed no accumulation of mucous. Lymph Nodes: - Lymph nodes: - Anterior cervical lymph nodes were enlarged on the right. - Anterior cervical lymph nodes were enlarged on the left. - Tender lymph nodes. Lungs: - Clear to auscultation. Cardiovascular: Heart Rate And Rhythm: - Normal. Abdomen: Auscultation: - Bowel sounds were normal. Palpation: - No direct tenderness in the abdomen. Skin: - Mucous membranes were not dry. Tests - Test: Group A strep Report Date: 11/07/2022 Rapid Strep pos Abnormal LOT # AND EXP. DATE [id number] Normal INT. QC ACCEPTABLE? yes Normal Assessment - Group A streptococcus: B hemolytic pharyngitis Therapy - The options include close observation. - Increase fluids. - Watch for signs/symptoms of infection return to the clinic if seen. - Continue current medication. - Clinical summary provided to patient. - Plan of care reviewed and agreed to by the patient. Pt / family were notified that strep pharyngitis testing was POSITIVE. Strep pharyngitis etiology, natural course, possible complications, and treatment options were discussed. Pt will start antibiotic therapy as ordered. Discussed with pt /family that pt is contagious for 24 hours after start of antibiotic therapy and the importance of completing full course of antibiotic therapy. Recommended replacement of oral care products after three days of antibiotic therapy to reduce risk reinoculation with strep. Observe for signs/symptoms of strep in pt contacts. Discussed with pt /family expected course of improvement. Pt may return to activities after completing 24 hours of antibiotic therapy and feel well. Family to call back if not better in 3 days or worsens. Pt to use OTC fever/pain product as needed per product instruction. . Counseling/Education - Go to the emergency room if condition worsens Discussed Finish Full prescription of antibiotics. Eat yogurt and BRAT diet if diarrhea develops Drink 8-8oz glasses of water a day. [place] teeth twice a day Get a new tooth brush and new tooth paste day 4 of antibiotic therapy Plan StartCited - Streptococcal pharyngitis In office procedures/*Clia Waived Labs: Rapid Strep Test Cephalexin 500 MG capsule One tablet three times a day, 10 days, 0 refills EndCited - Return to the clinic if condition worsens or new symptoms arise - Follow-up visit as needed with an office visit if symptoms persist or worsen - Patient to call if problem develops Health Reminders - Assess BMI satisfied 11/07/2022. - Assess Tobacco Use satisfied 11/07/2022.
--- OUTSIDE RECORDS SUMMARY | 2024-11-26 12:35 | XMS_ITS ---
Author Organization [facility] Address [address] [place] [address] Phone Care Team Providers Care Unit Clerk Name Role Phone GILLPERLITA GONZALEZ MCKAY Ravi Primary Care Provider [phone] LUIS DANIEL ORDONEZ DO Unavailable [phone] Plan of Treatment Findings Encounter Date Ordered follow-up visit as n eeded with an office visit if symptoms persist or worsen COVID SICK VISIT- ESTABLISHED PATIENT with ZENA Phelan [employer] [employer]PART[employer] CHAIR-C 02/06/2024 Last Documented On 4 4:17PM ; [facility] Ordered patient to call if p roblem develops COVID SICK VISIT- ESTABLISHED PATIENT with ZENA N [employer] [employer] CHAIR-C 02/06/2024 Last Documented On 4 4:17PM ; [facility] Ordered return to the clinic if condition worsens or new symptoms arise COVID SICK VISIT- ESTABLISHED PATIENT with ZENA N [employer] MUS[employer] DEPARTMENT CHAIR-C 02/06/2024 Last Documented On 4 4:17PM ; [facility] Ordered follow-up visit as n eeded with an office visit if symptoms persist or worsen COVID SICK VISIT- ESTABLISHED PATIENT with ROSALIND WINKLER MUSIC DEPARTMENT CHAIR-BC 11/07/2022 Last Documented On 3 5:54PM ; [facility] Ordered patient to call if p roblem develops COVID SICK VISIT- ESTABLISHED PATIENT with ROSALIND WINKLER MUSIC DEPARTMENT CHAIR-BC 11/07/2022 Last Documented On 3 5:54PM ; [facility] Ordered return to the clinic if condition worsens or new symptoms arise COVID SICK VISIT- ESTABLISHED PATIENT with ROSALIND WINKLER MUSIC DEPARTMENT CHAIR-BC 11/07/2022 Last Documented On 3 5:54PM ; [facility] Go to the emergency room if condition worsens WALK IN PATIENT - NEW PT with BARBARA ELLINGTON DIRECTOR [employer] 09/29/2022 Last Documented On 3 1:45PM ; [facility] Ordered disposition Patient or recreation activities coordinator was instructed in use of antipyretics. Also, the patient is to return if there is persistnece of fever for more than 48 hours, pain or other new significant symptoms WALK IN PATIENT - NEW PT with BARBARA ELLINGTON DIRECTOR [employer] 09/29/2022 Last Documented On 3 1:45PM ; [facility] Instructions to patient Return to the clinic if cond ition worsens or new symptoms arise Last Documented On 4 3:58PM ; [facility] Watch for signs/symptoms of infection Last Documented On 4 3:58PM ; [facility] Watch for signs/symptoms of infection, return to the clinic if seen Last Documented On 4 3:58PM ; [facility] Go to the emergency room if condition worsens Last Documented On 3 5:49PM ; [facility] Watch for signs/symptoms of infection Last Documented On 3 5:49PM ; [facility] Watch for signs/symptoms of infection, return to the clinic if seen Last Documented On 3 5:49PM ; [facility] Go to the emergency room if condition worsens Last Documented On 3 1:35PM ; [facility] Assessments Includes: Assessments for all patient encounters Findings Encounter Date Pharyngitis, Strep COVID SICK VISIT- ES TABLISHED PATIENT with ZENAZHOU TENORIO MUSIC DEPARTMENT CHAIR-C 02/06/2024 Last Documented On 4 4:17PM ; [facility] Group A streptococcus: B hem olytic pharyngitis COVID SICK VISIT- ESTABLISHED PATIENT with ROSALIND WINKLER MUSIC DEPARTMENT CHAIR-BC 11/07/2022 Last Documented On 3 5:54PM ; [facility] [H00.015 - Hordeolum externu m left lower eyelid] hordeolum externum in left lower eyelid WALK IN PATIENT - NEW PT with BARBARA ELLINGTON DIRECTOR [employer] 09/29/2022 Last Documented On 3 1:45PM ; [facility] Cellulitis of face WALK IN PATIENT - NEW PT with BARBARA ELLINGTON DIRECTOR [employer] 09/29/2022 Last Documented On 3 1:45PM ; [facility] Instructions Includes: Instructions for all patient encounters Instructions to patient Return to the clinic if cond ition worsens or new symptoms arise Last Documented On 4 3:58PM ; [facility] Watch for signs/symptoms of infection Last Documented On 4 3:58PM ; [facility] Watch for signs/symptoms of infection, return to the clinic if seen Last Documented On 4 3:58PM ; [facility] Go to the emergency room if condition worsens Last Documented On 3 5:49PM ; [facility] Watch for signs/symptoms of infection Last Documented On 3 5:49PM ; [facility] Watch for signs/symptoms of infection, return to the clinic if seen Last Documented On 3 5:49PM ; [facility] Go to the emergency room if condition worsens Last Documented On 3 1:35PM ; [facility] Medical Equipment - Implanted Devices Includes: Current and historical Devices No Medical Equipment Recorded Medications Includes: Current and historical Medications Current Medications (continue as prescribed) Amoxicillin 875 MG Oral Tablet 02/06/2024 Provider: ZENA WEST Diagnosis: Streptococcal ph aryngitis One tablet twice a day Last Documented On 4 4:01PM By Zena WEST ; [facility] Aspirin 81 MG Oral Tablet Delayed Release 02/06/2024 Provider: Diagnosis: Last Documented On 4 3:55PM By AMOR WALLACE ; [facility] FeroSul 325 (65 Fe) MG Oral Tablet 01/23/2024 Provid er: MCKAY GONZALEZ Diagnosis: Last Documented On 4 3:55PM By AMOR WALLACE ; [facility] Aimovig 70 MG/ML Subcutaneou s Solution Auto-injector 01/22/2024 Provider: MCKAY M GEILHAUSEN F [employer]OR [employer] Diagnosis: Last Documented On 4 3:55PM By AMOR WALLACE ; [facility] Omeprazole 40 MG Oral Capsul e Delayed Release 01/08/2024 Provider: MCKAY Rvai ROBERT Ordoñez DIRECTOR [employer] Diagnosis: Last Documented On 4 3:55PM By AMOR WALLACE ; [facility] SUMAtriptan Succinate 50 MG Oral Tablet 12/26/2023 P rovider: MCKAY JONES MUSIC DEPARTMENT CHAIR Diagnosis: Last Documented On 4 3:55PM By AMOR WALLACE ; [facility] Isosorbide Mononitrate ER 30 MG Oral Tablet Extended Release 24 Hour 11/14/2023 Provider: MCKAY Rodrigues ANSHUBERENICEPERLITA PADILLAP Diagnosis: Last Documented On 4 3:54PM By AMOR WALLACE ; [facility] metFORMIN HCl 500 MG Oral Tablet 11/14/2023 Provider : MCKAY Ravi ANSHUBERENICEPERLITA PADILLAP Diagnosis: Last Documented On 4 3:54PM By AMOR WALLACE ; [facility] Ezetimibe 10 MG Oral Tablet 09/25/2022 Provider: Diagnosis: Last Documented On 09/29/2022 1:32PM By WENDY WALLACE ; [facility] Topiramate 25 MG Oral Tablet 09/25/2022 Provider: Diagnosis: Last Documented On 09/29/2022 1:32PM By WENDY WALLACE ; [facility] Metoprolol Tartrate 50 MG Oral Tablet 09/25/2022 Pro vider: Diagnosis: Last Documented On 09/29/2022 1:32PM By WENDY WALLACE ; [facility] Escitalopram Oxalate 20 MG Oral Tablet 09/25/2022 Pr ovider: Diagnosis: Last Documented On 09/29/2022 1:32PM By WENDY HAMM Casi ; [facility] Losartan Potassium 25 MG Oral Tablet 09/14/2022 Prov ider: Diagnosis: Last Documented On 09/29/2022 1:33PM By WENDY WALLACE ; [facility] Trulicity 0.75 MG/0.5ML Subcutaneous Solution Pen-inje ctor 2022 Provider: Diagnosis: Last Documented On 09/29/2022 1:33PM By WENDY WALLACE ; [facility] Vitamin D3 1.25 MG (92456 UT) Oral Capsule 09/04/2022 Provider: Diagnosis: Last Documented On 09/29/2022 1:33PM By WENDY WALLACE ; [facility] Atorvastatin Calcium 80 MG Oral Tablet 08/22/2022 Pr ovider: Diagnosis: Last Documented On 09/29/2022 1:33PM By WENDY WALLACE ; [facility] Past Medications on file Cephalexin 500 MG Oral Capsule 11/07/2022 - 02/06/2024 Provider: ROSALIND WINKLER MUSIC DEPARTMENT CHAIR- Diagnosis: Streptococcal pharyngitis One tablet three times a day Last Documented On 4 3:51PM By AMOR WALLACE ; [facility] Ciprofloxacin HCl 0.3% Ophthalmic Solution 09/29/2022 - 10/13/2022 Provider: BARBARA ELLINGTON NP Diagnosis: Hordeolum tempering kiln tender um left lower eyelid 1-2 gtts to left eye q 4 marta rs while awake x 7 days Last Documented On 09/29/2022 1:48PM By BARBARA ELLINGTON NP ; [facility] Cephalexin 500 MG Oral Capsule 09/29/2022 - 10/06/2022 Provider: BARBARA ELLINGTON NP Diagnosis: Cellulitis of fa ce 1 CAPSULE TWO TIMES A DAY x 7 days Last Documented On 09/29/2022 1:48PM By BARBARA ELLINGTON NP ; [facility] traMADol HCl 50 MG Oral Tablet 09/25/2022 - 02/06/2024 Provider: Diagnosis: Last Documented On 4 3:53PM By AMOR WALLACE ; [facility] Escitalopram Oxalate 20 MG Oral Tablet 09/23/2022 - Provider: Diagnosis: Last Documented On 4 3:53PM By AMOR WALLACE ; [facility] traMADol HCl 50 MG Oral Tablet 09/23/2022 - 02/06/2024 Provider: Diagnosis: Last Documented On 4 3:53PM By AMOR WALLACE ; [facility] Diclofenac Sodium 50 MG Oral Tablet Delayed Release 09/11/2022 - 02/06/2024 Provider: Diagnosis: Last Documented On 4 3:54PM By AMOR WALLACE ; [facility] Medications Administered Includes: Administered Medications in patient's chart No Administered Medications Recorded Vital Signs Includes: Vital Signs from 11/27/2023 through 11/26/2024 Vital Name 02/06/2024 03:50P Pulse Rate-Sitting (bpm) 75 Temp-Oral (F) 98.6 Weight (lb) 174 Oxygen Saturation (%) 98 Last Documented: On 02/06/2024 3:51PM ; [facility] Results Includes: Results from 11/27/2023 through 11/26/2024 Group A strep [facility] Ordered by ZENA WEST on 0 02/06/2024 Collected: Reported: 02/06/2024 15:56 Last Documented On 4 4:17PM ; [facility] Reviewed by ZENA WEST on 02/06/2024; All test results are final unless otherwise noted. Rapid Strep pos A (Abnormal) Last Documented On 4 3:56PM ; [facility] LOT # AND EXP. DATE [id number] N (Normal) Last Documented On 4 3:56PM ; [facility] INT. QC ACCEPTABLE? yes N (Normal) Last Documented On 4 3:56PM ; [facility] History of Present Illness History of Present Illness not supported for this document type No History of Present Illness Recorded Social History Description Last Updated Former smoker QUIT FOR BACK SURGERY 01/09 Last Documented On 4 4:17PM ; [facility] Current smoker 11/07/2022 Last Documented On 3 5:54PM ; [facility] Smoking Status Unknown Procedures and Surgical History Includes: Procedures from 11/27/2023 through 11/26/2024 Procedures Code Diagnosis Performing Provider Service Location Service Date CLINIC VISIT T1015 Streptococcal pharyngitis ZENA WEST [facility] 02/06/2024 Last Documented On 4 12:31PM ; [facility] STREP TEST SCREENING (CLIA WAIVED) 79371 Streptococcal pharyngitis ZENA TENORIO MUSIC DEPARTMENT CHAIR-C [facility] 02/06/2024 Last Documented On 4 12:31PM ; [facility] Medical History Includes: Medical History in patient's chart Description Last Updated Taking OTC medications 11/07/2022 Last Documented On 3 5:54PM ; [facility] Taking OTC pain medication /fever. Using Tylenol 11/07/2022 Last Documented On 3 5:54PM ; [facility] Family History Includes: Family History in patient's chart No Family History Recorded Review of Systems Review of Systems not supported for this document type No Review of Systems Recorded Mental Status No Mental Status Recorded Functional Status No Functional Status Recorded Physical Exam Physical Exam not supported for this document type No Physical Exam Recorded Allergies Includes: Active, inactive, and resolved Allergies Substance Type Reaction Onset Date Resolved Date Statu s Sulfa Antibiotics Allergy 09/29/2022 A ctive Last Documented On 02/06/2024 3:52PM ; [facility] Note: Feels Hot & Throat closes shut Encounters Includes: Encounters from 11/27/2023 through 11/26/2024 Encounter Provider Location Date Check-In Time Check-Out Time Diagnosis COVID SICK VISIT- ESTABLISHED PATIENT ZENA TENORIO MUSIC DEPARTMENT CHAIR-C [facility] 02/06/20 24 3:52PM 4:00PM Pharyngitis, Strep Insurance Includes: Active Insurance Policies Plan Name Member ID Group # Subscriber Relationship Effect jesus Dates 1 - [employer] [facility] [id number] VIVIAN PERKINS Self Clinical Notes Includes: Signed Clinical Notes starting from 09/28/2022 * Progress note Date Encounter Last Documented by 02/06/2024 COVID SICK VISIT- ESTABLISHED JOVANNI GARCÍA Last documented on 02/06/2024; 4:17 PM, ZENA TENORIO [facility]; [facility] Chief Complaint The Chief Complaint is: PT IS HERE WITH SINUS DRAINAGE, SORE THROAT, STUFFY RUNNY NOSE SINCE SATURDAY. History of Present Illness VIVIAN PERKINS is a 63 year old female. Source of patient information was patient - Allergy list reviewed - Medication list reviewed - Source of patient information was mother - Feeling poorly (malaise) - No fever - No chills - Headache - No neck pain - No eye symptoms - Nasal discharge - Postnasal drip - Sore throat - No ear symptoms - No sneezing - No chest pain or discomfort - No dyspnea - No cough - No wheezing - Decreased appetite - No heartburn - No nausea - No vomiting - No abdominal pain - No diarrhea - No skin symptoms Vivian is here with sore throat, headache and sinus drainage- started Saturday. Social History Tobacco use: Former smoker QUIT FOR BACK SURGERY. Review Of Systems Systemic: No fever. Head: Headache. Neck: No neck pain and no neck stiffness. Otolaryngeal: No nasal discharge. Sore throat. Cardiovascular: No chest pain or discomfort. Pulmonary: No cough. Gastrointestinal: No nausea, no vomiting, no abdominal pain, and no diarrhea. Physical Findings - Vitals taken 02/06/2024 03:50 pm Pulse Rate-Sitting 75 bpm Temp-Oral 98.6 F Weight 174 lbs Oxygen Saturation 98 % General Appearance: - Awake. - Alert. - Well developed. - Well nourished. - In no acute distress. Eyes: General/bilateral: Pupils: - PERRLA. Ears: Right Ear: Tympanic Membrane: - Normal. Left Ear: Tympanic Membrane: - Normal. Nose: General/bilateral: Discharge: - No nasal discharge. Sinus Tenderness: - No sinus tenderness. Pharynx: Oropharynx: - Tonsils showed abnormalities. - Tonsils were erythematous. - Tonsils were enlarged. - Inflamed. - Tonsils showed no exudate. Mucosal: - [...] - Test: Group A strep Report Date: 02/06/2024 Rapid Strep pos Abnormal LOT # AND EXP. DATE [id number] Normal INT. QC ACCEPTABLE? yes Normal Assessment - Pharyngitis, Strep [J02.0 - Streptococcal pharyngitis] Therapy - The options include close observation. - Increase fluids. - Watch for signs/symptoms of infection return to the clinic if seen. - Continue current medication. Pt / family were notified that strep [...] fever/pain product as needed per product instruction. Salt water gargle or use of OTC chloreseptic recommended for sore throat relief as needed. Counseling/Education - Return to the clinic if condition worsens or new symptoms arise Discussed Finish Full prescription of antibiotics. Get a new tooth brush and new tooth paste day 4 of antibiotic therapy Plan StartCited - Streptococcal pharyngitis In office procedures/*Clia Waived Labs: Rapid Strep Test Amoxicillin 875 MG tablet One tablet twice a day, 10 days, 0 refills EndCited - Return to the clinic if condition worsens or new symptoms arise - Follow-up visit as needed with an office visit if symptoms persist or worsen - Patient to call if problem develops Practice Management Review of medications documented.
--- OUTSIDE RECORDS SUMMARY | 2024-11-26 12:35 | XMS_ITS ---
Care Plan - [facility] Created on: November 26, 2024 TRISH PERKINS : 1960 Sex: Female Author Organization [facility] Address [address] [place] [address] Phone Care Team Providers Care Lead Caster Helper Name Role Phone MCKAY CALZADA Primary Care Provider [phone] LUIS DANIEL ORDONEZ DO Unavailable [phone]
--- OUTSIDE RECORDS SUMMARY | 2024-11-26 12:35 | XMS_ITS | Clinical Summary ---
Author Organization [facility] Address [address] [place] [address] Phone Care Team Providers Care Soda Dialyzer Name Role Phone ROBERT CARLOSMCKAY Primary Care Provider [phone] JOSÉ LUIS HANSON LUIS DANIEL Zamora Unavailable [phone] Reason for Visit and Chief Complaint The Chief Complaint is: PT IS HERE WITH SINUS DRAINAGE, SORE THROAT, STUFFY RUNNY NOSE SINCE SATURDAY Plan of Treatment - Return to the clinic if condition worsens or new symptoms arise - Last Documented On 02/06/2024 4:17PM ; [facility] - Follow-up visit as needed with an office visit if symptoms persist or worsen - Last Documented On 02/06/2024 4:17PM ; [facility] - Patient to call if problem develops - Last Documented On 02/06/2024 4:17PM ; [facility] Instructions to patient Return to the clinic if cond ition worsens or new symptoms arise Last Documented On 4 3:58PM ; [facility] Watch for signs/symptoms of infection Last Documented On 4 3:58PM ; [facility] Watch for signs/symptoms of infection, return to the clinic if seen Last Documented On 4 3:58PM ; [facility] Assessments Includes: Assessments from this encounter Findings - Pharyngitis, Strep [J02.0 - Streptococcal pharyngitis] - Last Documented On 02/06/2024 4:17PM ; [facility] Instructions Includes: Instructions from this encounter Instructions to patient Return to the clinic if cond ition worsens or new symptoms arise Last Documented On 4 3:58PM ; [facility] Watch for signs/symptoms of infection Last Documented On 4 3:58PM ; [facility] Watch for signs/symptoms of infection, return to the clinic if seen Last Documented On 4 3:58PM ; [facility] Medical Equipment - Implanted Devices Includes: Current Devices No Medical Equipment Recorded Medications Includes: Medications discussed during this encounter and other current Medications Discontinued / Stopped on this date ROSALIND GONZALEZ-SURESH on 11/07/2022 Cephalexin 500 MG Oral Capsule Provider: ROSALIND WATT Diagnosis: Streptococcal ph aryngitis Last Documented On 4 3:51PM By AMOR WALLACE ; [facility] traMADol HCl 50 MG Oral Tablet Provider: Diagnosis: Last Documented On 4 3:53PM By AMOR WALLACE ; [facility] Escitalopram Oxalate 20 MG Oral Tablet Pr ovider: Diagnosis: Last Documented On 4 3:53PM By AMOR WALLACE ; [facility] traMADol HCl 50 MG Oral Tablet Provider: Diagnosis: Last Documented On 4 3:53PM By AMOR WALLACE ; [facility] Diclofenac Sodium 50 MG Oral Tablet Delayed Release Provider: Diagnosis: Last Documented On 4 3:54PM By AMOR WALLACE ; [facility] New / Renewed during this visit ZENA WEST on 02/06/2024 Amoxicillin 875 MG Oral Tablet Provider: ZENA WEST 10 day supply: 20 tablet, 0 refills Diagnosis: Streptococcal pharyngitis One tablet twice a day Pharmacy: [facility] - [address] [place] [address], [id number] - Last Documented On 4 4:01PM By Zena WEST ; [facility] Current Medications (continue as prescribed) Aspirin 81 MG Oral Tablet Delayed Release 02/06/2024 Provider: Diagnosis: Last Documented On 4 3:55PM By AMOR WALLACE ; [facility] FeroSul 325 (65 Fe) MG Oral Tablet 01/23/2024 Provid er: MCKAY JONES ARCHIVES SPECIALIST Diagnosis: Last Documented On 4 3:55PM By AMOR WALLACE ; [facility] Aimovig 70 MG/ML Subcutaneou s Solution Auto-injector 01/22/2024 Provider: MCKAY Ordoñez NP Diagnosis: Last Documented On 4 3:55PM By AMOR WALLACE ; [facility] Omeprazole 40 MG Oral Capsul e Delayed Release 01/08/2024 Provider: MCKAY Ordoñez BOWLING ALLEY OPERATOR Diagnosis: Last Documented On 4 3:55PM By AMOR WALLACE ; [facility] SUMAtriptan Succinate 50 MG Oral Tablet 12/26/2023 P rovider: MCKAY JONES ARCHIVES SPECIALIST Diagnosis: Last Documented On 4 3:55PM By AMOR WALLACE ; [facility] Isosorbide Mononitrate ER 30 MG Oral Tablet Extended Release 24 Hour 11/14/2023 Provider: MCKAY JONES ARCHIVES SPECIALIST Diagnosis: Last Documented On 4 3:54PM By AMOR WALLACE ; [facility] metFORMIN HCl 500 MG Oral Tablet 11/14/2023 Provider : MCKAY JONES ARCHIVES SPECIALIST Diagnosis: Last Documented On 4 3:54PM By AMOR WALLACE ; [facility] Ezetimibe 10 MG Oral Tablet 09/25/2022 Provider: Diagnosis: Last Documented On 09/29/2022 1:32PM By WENDY WALLACE ; [facility] Topiramate 25 MG Oral Tablet 09/25/2022 Provider: Diagnosis: Last Documented On 09/29/2022 1:32PM By WENDY WALLACE ; [facility] Metoprolol Tartrate 50 MG Oral Tablet 09/25/2022 Pro vider: Diagnosis: Last Documented On 09/29/2022 1:32PM By WENDY WALLACE ; [facility] Escitalopram Oxalate 20 MG Oral Tablet 09/25/2022 Pr ovider: Diagnosis: Last Documented On 09/29/2022 1:32PM By WENDY WALLACE ; [facility] Losartan Potassium 25 MG Oral Tablet 09/14/2022 Prov ider: Diagnosis: Last Documented On 09/29/2022 1:33PM By WENDY HAMM Casi ; [facility] Trulicity 0.75 MG/0.5ML Subcutaneous Solution Pen-inje ctor 2022 Provider: Diagnosis: Last Documented On 09/29/2022 1:33PM By WENDY HAMM Casi ; [facility] Vitamin D3 1.25 MG (67441 UT) Oral Capsule 09/04/2022 Provider: Diagnosis: Last Documented On 09/29/2022 1:33PM By WENDY HAMM Casi ; [facility] Atorvastatin Calcium 80 MG Oral Tablet 08/22/2022 Pr ovider: Diagnosis: Last Documented On 09/29/2022 1:33PM By [facility] ; [facility] Medications Administered Includes: Administered Medications from this encounter No Administered Medications Recorded Vital Signs Includes: Vital Signs from this encounter Vital Name 02/06/2024 03:50P Pulse Rate-Sitting (bpm) 75 Temp-Oral (F) 98.6 Weight (lb) 174 Oxygen Saturation (%) 98 Last Documented: On 02/06/2024 3:51PM ; [facility] Results Includes: Results discussed during this encounter Group A strep [facility] Ordered by ZENA GONZALEZ-Bibi on 0 02/06/2024 Collected: Reported: 02/06/2024 15:56 Last Documented On 4 4:17PM ; [facility] Reviewed by ZENA WHITMORE ARCHIVES SPECIALIST-C on 02/06/2024; All test results are final unless otherwise noted. Rapid Strep pos A (Abnormal) Last Documented On 4 3:56PM ; [facility] LOT # AND EXP. DATE [id number] N (Normal) Last Documented On 4 3:56PM ; [facility] INT. QC ACCEPTABLE? yes N (Normal) Last Documented On 4 3:56PM ; [facility] History of Present Illness Includes: History of Present Illness from this encounter JUDD PERKINS is a 63 year old female. Source of patient information was patient ? Allergy list reviewed ? Medication list reviewed ? Source of patient information was mother - [...] and sinus drainage- started Saturday. Social History Description Last Updated Former smoker QUIT FOR BACK SURGERY 01/09 Last Documented On 4 4:17PM ; [facility] Smoking Status Unknown Procedures and Surgical History Includes: Procedures from this encounter Procedures Code Diagnosis Performing Provider Service Location Service Date CLINIC VISIT T1015 Streptococcal pharyngitis ZENA N [facility] 02/06/2024 Last Documented On 4 12:31PM ; [facility] STREP TEST SCREENING (CLIA WAIVED) 69093 Streptococcal pharyngitis ZENA N [facility] 02/06/2024 Last Documented On 4 12:31PM ; [facility] continue current medication Last Documented On 4 3:58PM ; [facility] the options include close observation Last Documented On 4 3:58PM ; [facility] watch for signs/symptoms of infection Last Documented On 4 3:58PM ; [facility] watch for signs/symptoms of infection, r eturn to the clinic if seen Last Documented On 4 3:58PM ; [facility] Pt / family were notified th at [...] 3 days or worsens Last Documented On 4 3:58PM ; [facility] Pt to use OTC fever/pain pro duct as needed per product instruction. ~Salt water gargle or use of OTC chloreseptic recommended for sore throat relief as needed Last Documented On 4 3:58PM ; [facility] review of medications documented 1160F Last Documented On 4 3:52PM ; [facility] Increase fluids Last Documented On 4 3:58PM ; [facility] Medical History Includes: Medical History addressed during this encounter No Medical History Recorded Family History Includes: Family History addressed during this encounter No Family History Recorded Review of Systems Includes: Review of Systems from this encounter Systemic: No fever. Head: Headache. Neck: No neck pain and no neck stiffness. Otolaryngeal: No nasal discharge. Sore throat. Cardiovascular: No chest pain or discomfort. Pulmonary: No cough. Gastrointestinal: No nausea, no vomiting, no abdominal pain, and no diarrhea. Mental Status Includes: Mental Status from this [...] Diagnosis COVID SICK VISIT- ESTABLISHED PATIENT ZENA WEST [facility] 02/06/20 24 3:52PM 4:00PM Pharyngitis, Strep Insurance Includes: Active Insurance Policies Plan Name Member ID Group # Subscriber Relationship Effect jesus Dates 1 - AETNA [facility] [id number] VIVIAN PERKINS Self Clinical Notes Includes: Clinical Notes from this encounter * Progress note Date Encounter Last Documented by 02/06/2024 COVID SICK VISIT- ESTABLISHED PA RICKY Last documented on 02/06/2024; 4:17 PM, ZENA WEST; [facility] Chief Complaint The Chief Complaint is: PT [...] pos Abnormal LOT # AND EXP. DATE [id number] Normal INT. QC ACCEPTABLE? yes Normal Assessment [...]
--- OUTSIDE RECORDS SUMMARY | 2024-11-26 12:35 | XMS_ITS | Clinical Summary ---
Author Organization [facility] Address [address] [place] [address] Phone Care Team Providers Care Field Insurance Sales Manager Name Role Phone ROBERT CARLOSMCKAY Primary Care Provider [phone] JOSÉ LUIS HANSONLUIS DANIEL Unavailable [phone] Reason for Visit and Chief Complaint The Chief Complaint is: Left eye swollen & red for about 2-3 days Plan of Treatment - Go to the emergency room if condition worsens - Last Documented On 09/29/2022 1:45PM ; [facility] - Disposition Patient or maori physiotherapist was instructed in use of antipyretics. Also, the patient is to return if there is persistnece of fever for more than 48 hours, pain or other new significant symptoms - Last Documented On 09/29/2022 1:45PM ; [facility] Instructions to patient Go to the emergency room if condition worsens Last Documented On 3 1:35PM ; [facility] Assessments Includes: Assessments from this encounter Findings - [H00.015 - Hordeolum externum left lower eyelid] Hordeolum externum in left lower eyelid - Last Documented On 09/29/2022 1:45PM ; [facility] - [L03.211 - Cellulitis of face] Cellulitis of face - Last Documented On 09/29/2022 1:45PM ; [facility] Instructions Includes: Instructions from this encounter Instructions to patient Go to the emergency room if condition worsens Last Documented On 1:35PM ; [facility] Medical Equipment - Implanted Devices Includes: Current Devices No Medical Equipment Recorded Medications Includes: Medications discussed during this encounter and other current Medications New / Renewed during this visit BARBARA ELLINGTON LIME PLANT OPERATOR on 09/29/2022 Ciprofloxacin HCl 0.3% Ophthalmic Solution Provider: BARBARA ELLINGTON NP 7 day supply: 10 mL, 1 refills Diagnosis: Hordeolum externum left lower eyelid 1-2 gtts to left eye q 4 marta rs while awake x 7 days Pharmacy: [address], [phone] - Last Documented On 09/29/2022 1:48PM By BARBARA ELLINGTON NP ; [facility] Cephalexin 500 MG Oral Capsule Provider: BARBARA ELLINGTON NP 7 day supply: 14 capsule, 0 refills Diagnosis: Cellulitis of face 1 CAPSULE TWO TIMES A DAY x 7 days Pharmacy: [address], [phone] - Last Documented On 09/29/2022 1:48PM By BARBARA ELLINGTON NP ; [facility] Current Medications (continue as prescribed) Amoxicillin 875 MG Oral Tablet 02/06/2024 Provider: ZENA WEST Diagnosis: Streptococcal ph aryngitis One tablet twice a day Last Documented On 4 4:01PM By Zena WEST ; [facility] Aspirin 81 MG Oral Tablet Delayed Release 02/06/2024 Provider: Diagnosis: Last Documented On 4 3:55PM By AMOR WALLACE ; [facility] FeroSul 325 (65 Fe) MG Oral Tablet 01/23/2024 Provid er: MCKAY GONZALEZ Diagnosis: Last Documented On 4 3:55PM By AMOR WALLACE ; [facility] Aimovig 70 MG/ML Subcutaneou s Solution Auto-injector 01/22/2024 Provider: MCKAY Ordoñez NP Diagnosis: Last Documented On 4 3:55PM By AMOR WALLACE ; [facility] Omeprazole 40 MG Oral Capsul e Delayed Release 01/08/2024 Provider: MCKAY Ordoñez NP Diagnosis: Last Documented On 4 3:55PM By AMOR WALLACE ; [facility] SUMAtriptan Succinate 50 MG Oral Tablet 12/26/2023 P rovider: MCKAY JONES TRAINING ANALYST Diagnosis: Last Documented On 4 3:55PM By AMOR WALLACE ; [facility] Isosorbide Mononitrate ER 30 MG Oral Tablet Extended Release 24 Hour 11/14/2023 Provider: MCKAY GARLANDPERLITA TRAINING ANALYST Diagnosis: Last Documented On 4 3:54PM By AMOR WALLACE ; [facility] metFORMIN HCl 500 MG Oral Tablet 11/14/2023 Provider : CMKAY JONES TRAINING ANALYST Diagnosis: Last Documented On 4 3:54PM By AMOR WALLACE ; [facility] Ezetimibe 10 MG Oral Tablet 09/25/2022 Provider: Diagnosis: Last Documented On 09/29/2022 1:32PM By WENDY WALLACE ; [facility] Topiramate 25 MG Oral Tablet 09/25/2022 Provider: Diagnosis: Last Documented On 09/29/2022 1:32PM By WENDY WALLACE ; [facility] Metoprolol Tartrate 50 MG Oral Tablet 09/25/2022 Pro vider: Diagnosis: Last Documented On 09/29/2022 1:32PM By WENDY WALLACE ; [facility] Escitalopram Oxalate 20 MG Oral Tablet 09/25/2022 Pr ovider: Diagnosis: Last Documented On 09/29/2022 1:32PM By WENDY WALLACE ; [facility] Losartan Potassium 25 MG Oral Tablet 09/14/2022 Prov ider: Diagnosis: Last Documented On 09/29/2022 1:33PM By WENDY WALLACE ; [facility] Trulicity 0.75 MG/0.5ML Subcutaneous Solution Pen-inje ctor 2022 Provider: Diagnosis: Last Documented On 09/29/2022 1:33PM By WENDY WALLCAE ; [facility] Vitamin D3 1.25 MG (05256 UT) Oral Capsule 09/04/2022 Provider: Diagnosis: Last Documented On 09/29/2022 1:33PM By WENDY WALLACE ; [facility] Atorvastatin Calcium 80 MG Oral Tablet 08/22/2022 Pr ovider: Diagnosis: Last Documented On 09/29/2022 1:33PM By WENDY WALLACE ; [facility] Medications Administered Includes: Administered Medications from this encounter No Administered Medications Recorded Vital Signs Includes: Vital Signs from this encounter Vital Name 09/29/2022 01:33P Pulse Rate-Sitting (bpm) 64 Temp-Oral (F) 98.2 Height (in) 63 Weight (lb) 182 Body Mass Index 32.2 Body Surface Area 1.9 Oxygen Saturation (%) 93 Last Documented: On 09/29/2022 1:34PM ; [facility] Results Includes: Results discussed during this encounter No Results Recorded For Specified Dates History of Present Illness Includes: History of Present Illness from this encounter JUDD PERKINS is a 62 year old female. - Medication list reviewed. - No systemic symptoms. Pt c/o irritation to left lower eyelid and under the eye skin for 2-3 days. She denies drainage, no visual change, no foreign body or injury noted. She denies cough/congestion/fever. Social History No Social History Recorded - Smoking Status Unknown Procedures and Surgical History Includes: Procedures from this encounter Procedures Code Diagnosis Performing Provider Service L ocation Service Date plan of care reviewed and agreed to Last Documented On 3 1:35PM ; [facility] plan of care reviewed and agreed to by charlie guo patient Last Documented On 3 1:35PM ; [facility] patient to call if symptoms worsen or not improved to update patient's status as needed Last Documented On 3 1:35PM ; [facility] Increase fluids Last Documented On 3 1:35PM ; [facility] Clinical summary provided to patient Last Documented On 3 1:35PM ; [facility] Medical History Includes: Medical History addressed during this encounter No Medical History Recorded Family History Includes: Family History addressed during this encounter No Family History Recorded Review of Systems Includes: Review of Systems from this encounter Systemic: Not feeling poorly (malaise). No fever, no chills, no night sweats, and no recent weight change. Head: No headache, no facial pain, and no sinus pain. Eyes: Eye symptoms. Otolaryngeal: No hearing loss, no earache, no tinnitus, no nasal discharge, no hoarseness, and no sore throat. Pulmonary: No dyspnea, no cough, and no wheezing. Gastrointestinal: No nausea and without vomiting. Mental Status Includes: Mental Status from this encounter No Mental Status Recorded Functional Status Includes: Functional Status from this encounter No Functional Status Recorded Physical Exam Includes: Physical Exam from this encounter Allergies Includes: Active Allergies Substance Type Reaction Onset Date Resolved Date Statu s Sulfa Antibiotics Allergy 09/29/2022 A ctive Last Documented On 02/06/2024 3:52PM ; [facility] Note: Feels Hot & Throat closes shut Encounters Encounter Provider Location Date Check-In Time Check-Out Time Diagnosis WALK IN PATIENT - NEW PT BARBARA ELLINGTON LIME PLANT OPERATOR [facility] 09/29/19 23 1:26PM 1:46PM Hordeolum Externum Left Lower Eyelid,Cellul itis of Face Insurance Includes: Active Insurance Policies Plan Name Member ID Group # Subscriber Relationship Effect jesus Dates 1 - AETNA [facility] [id number] TRISH PERKINS Self Clinical Notes Includes: Clinical Notes from this encounter * Progress note Date Encounter Last Documented by 09/29/2022 WALK IN PATIENT - NEW PT Last do cumented on 09/29/2022; 1:45 PM, BARBARA ELLINGTON LIME PLANT OPERATOR; [facility] Chief Complaint The Chief Complaint is: Left eye swollen & red for about 2-3 days. History of Present Illness TRISH PERKINS is a 62 year old female. - Medication list reviewed. - No systemic symptoms. Pt c/o irritation to left lower eyelid and under the eye skin for 2-3 days. She denies drainage, no visual change, no foreign body or injury noted. She denies cough/congestion/fever. Current Medication - Atorvastatin Calcium 80 MG [...] 0 refills - Vitamin D3 1.25 MG (38329 UT) Oral Capsule 56 days, 0 refills Allergies - Sulfa Antibiotics Review Of Systems Systemic: Not feeling poorly (malaise). No fever, no chills, no night sweats, and no recent weight change. Head: No headache, no facial pain, and no sinus pain. Eyes: Eye symptoms. Otolaryngeal: No hearing loss, no earache, no tinnitus, no nasal discharge, no hoarseness, and no sore throat. Pulmonary: No dyspnea, no cough, and no wheezing. Gastrointestinal: No nausea and without vomiting. Physical Findings - Vitals taken 09/29/2022 01:33 pm Pulse Rate-Sitting 64 bpm Temp-Oral 98.2 F Height 63 in Weight 182 lbs Body Mass Index 32.2 kg/m2 Body Surface Area 1.9 m2 Oxygen Saturation 93 % General Appearance: - Well-appearing. - In no acute distress. Eyes: General/bilateral: - Eyes: Pupils: - PERRLA. Left Eye: External: - Left external eye Just inside left lower lid, small pustule noted with erythema that extends to skin under eye about 2 , PERRL, ROM intact. Ears: Right Ear: External Auditory Canal: - Normal. - No external auditory canal discharge. Tympanic Membrane: - Normal. - No bulging tympanic membrane. - No retraction of tympanic membrane. - Not erythematous. - No perforation. - No decreased mobility of tympanic membrane. - No pus behind tympanic membrane. - No serous exudate behind tympanic membrane. Left Ear: External Auditory Canal: - Normal. - No external auditory canal discharge. Tympanic Membrane: - Normal. - No bulging tympanic membrane. - No retracted tympanic membrane. - Not erythematous. - No perforation. - No decreased mobility of tympanic membrane. - No pus behind tympanic membrane. - No serous exudate behind tympanic membrane. Nose: General/bilateral: Discharge: - No nasal discharge. Cavity: - Nasal mucosa not red. - Nasal turbinate not hypertrophied. Sinus Tenderness: - No sinus tenderness. Pharynx: Oropharynx: - Soft palate was normal. - Tonsils showed no abnormalities. - Not inflamed. Mucosal: - Pharynx showed no accumulation of mucous. Lymph Nodes: - Normal. - No adenopathy. Lungs: - Clear to auscultation. Cardiovascular: Heart Rate And Rhythm: - Normal. Heart Sounds: - Normal. Assessment - [H00.015 - Hordeolum externum left lower eyelid] Hordeolum externum in left lower eyelid - [L03.211 - Cellulitis of face] Cellulitis of face Therapy - Increase fluids. - Clinical summary provided to patient. - Patient to call if symptoms worsen or not improved to update patient's status as needed. - Plan of care reviewed and agreed to by the patient. Plan StartCited - Cellulitis of face Cephalexin 500 MG capsule 1 CAPSULE TWO TIMES A DAY x 7 days, 7 days, 0 refills EndCited StartCited - Hordeolum externum left lower eyelid Ciprofloxacin HCl 0.3% mL 1-2 gtts to left eye q 4 hours while awake x 7 days, 7 days, 1 refills EndCited - Go to the emergency room if condition worsens - Disposition Patient or maori physiotherapist was instructed in use of antipyretics. Also, the patient is to return if there is persistnece of fever for more than 48 hours, pain or other new significant symptoms Practice Management [[id number]] Established outpatient, medically appropriate H&P, low level decision making, 20-29 minutes. Health Reminders - Assess BMI satisfied 09/29/2022.
[2024-11-26 13:18] LABS: Alanine Aminotransferase 18 U/L (14-59); Albumin Level 3.7 g/dL (3.4-5.0); Alkaline Phosphatase 130 U/L (46-116); Anion Gap 10 mmol/L (4-12); Aspartate Amino Transferase 11 U/L (15-37); Bilirubin,Total 0.4 mg/dL (0.00-1.00); Blood Urea Nitrogen 14 mg/dL (7-18); Carbon Dioxide 27 mmol/L (21-32); Chloride 105 mmol/L (98-108); Cholesterol 152 mg/dL (0-200); Estimated Glomerular Filt Rate 60; Free T4 Free Thyroxine 0.96 ng/dL (0.76-1.46); Glucose 105 mg/dL (70-99); HDL Direct 37 mg/dL (40-60); Iron 48 ug/dL (50-170); LDL Cholesterol Calculated 68 mg/dL (<130); Osmolality Calculated 294 mOsm/kg (285-295); Potassium 4.5 mmol/L (3.5-5.1); Sodium 142 mmol/L (136-145); Thyroid Stimulating Hormone 1.88 uIU/mL (0.36-3.74); Total Protein 7.8 g/dL (6.4-8.2); Triglycerides 234 mg/dL (0-150); Vitamin B12 248 pg/mL (193-986)
[2024-11-28 02:19] LABS: Total Triiodothyronine (T3) 105 ng/dL (76-181)
[2024-11-28 05:17] LABS: Vitamin D 25 Hydroxy 40 ng/mL (30-100)
== END 2024-11-26 11:47 | disposition home or self-care (01) ==
PROVIDERS: PCP Nurse Practitioner Family; Visit Provider Nurse Practitioner Family
DX: E83.42 Hypomagnesemia (principal); I10 Essential (primary) hypertension; E13.9 Other specified diabetes mellitus without complications; E53.8 Deficiency of other specified B group vitamins; R53.83 Other fatigue; Z79.899 Other long term (current) drug therapy; F32.9 Major depressive disorder, single episode, unspecified; E78.5 Hyperlipidemia, unspecified; D64.9 Anemia, unspecified; R00.2 Palpitations
CPT/HCPCS: 36415; 80053; 80061; 82306; 82607; 83036; 83540; 83735; 84439; 84443; 84480; 85025; 93005

== ENCOUNTER 2025-02-17 11:33 | Outpatient (CLI) | payer OTHER, SELFPAY ==
--- NOTE | ~2025-02-17 | XR_ITS ---
AP and lateral views of the left hip Clinical history: Pain Findings: No acute fracture or dislocation is seen. Osseous alignment is anatomic. Left hip joint int act. Soft tissues are unremarkable. Impression: No significant abnormality is seen. Reviewed, dictated and finalized at location M. Impression: No significant abnormality is seen.
--- OUTSIDE RECORDS SUMMARY | 2025-02-17 13:54 | XMS_ITS | Clinical Summary ---
Author Organization [facility] Address [address] [place] [id number] Care Team Providers Care Behavioral Health Counselor Name Role Phone Galina LORENZO MD, David Singh Unavailable [phone] Marjan Robertson MD Unavailable [phone] Dangelo Brock MD Unavailable Ag Roblero MD, Chepe Meyers Unavailable [phone] Lana Bailey NP Primary Care Provider [phone] Allergies Active Allergy Reactions Criticality Noted Date [...] (four) hours as needed 01/26/20 23 Active Aimovig Autoinjector 70 mg/mL auto-injector subcutaneous [...] of elemental magnesium total) by mouth Active losartan (COZAAR) 25 mg tabletIndications: Essential hypertension Take 1 tablet by mouth once daily 270 tablet 08/27/20 24 Active evolocumab (Repatha SureClick) 140 mg/mL pen injectorIndication s:Coronary artery disease involving inaja coronary artery of inaja heart, unspecified whether angina present,Mixed hyperlipidemia Inject 1 mL (140 mg total) under the skin every 14 (fourteen) days 2 mL 11 09/11/19 25 Active ezetimibe (ZETIA) 10 mg tabletIndications: Coronary artery disease involving inaja coronary artery of inaja heart,Dyslipidemia Take 1 tablet (10 mg total) by mouth daily 90 tablet 01/02/20 25 Active isosorbide mononitrate ER (IMDUR) 30 mg 24 hr tablet Take 1 tablet (30 mg total) by mouth daily 90 tablet 01/02/20 25 Active Active Problems Problem Noted Date Diagnosed Date Abnormal cardiovascular stress test 04/03/2023 Left-sided weakness 04/27/2019 Tingling in left arm 04/27/2019 Positive D dimer 04/27/2019 Type 2 diabetes mellitus wit h circulatory disorder, without long-term current use of insulin 04/27/2019 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 03/18/2018 Mixed [...] Encounters Date Type Department Care Team Description 01/01/2025 Telephone [facility] Medical Group Cardiology [address] [place] [address] Marjan Robertson MD Med Refill from Last 3 Months Surgical History Surgery [...] and Family Once a week 04/28/2019 Attends Protestant Services Never 04/28 Active Member of Clubs [...] on file Legal Sex Female 6:12 PM RETAIL MARKETING EXECUTIVE Gender Identity Not on file Sexual Orientation Not on file Obstetrics History Last Filed Vital Signs Vital Sign Reading Time Taken Comments Blood Pressure 124/60 08/26/2024 11:30 AM RETAIL MARKETING EXECUTIVE Pulse 65 08/26/2024 11:30 AM RETAIL MARKETING EXECUTIVE Temperature 36.7 C (98.1 F) 04/24/2023 8:31 AM CDT Respiratory Rate 18 04/24/2023 8:31 AM CDT Oxygen Saturation 95% 08/26/2024 11:30 AM RETAIL MARKETING EXECUTIVE Inhaled Oxygen Concentration - - Weight 80.7 kg (178 lb) 08/26/2024 11:30 AM RETAIL MARKETING EXECUTIVE Height 160 cm (5' 3) 08/26/2024 11:30 AM RETAIL MARKETING EXECUTIVE Body Mass Index 31.53 08/26/2024 11:30 AM RETAIL MARKETING EXECUTIVE Plan of Treatment Health Maintenance Due Date [...] 5 season) 2024 12/23/2020, 11/25/2020 Influenza Vaccine (Season Ended) 2025 Lipid Panel 08/26/2025 08/26/2024, 03/09, 10/30/2021, Additional history exists Medical Devices Implanted Type Area Hi Lo Driver Device Identifier Shelf Expiration Date Model / Serial / Lot [facility] [employer] Device Closure Vascade Od5 Fr Femoral Artery [id number] - [id number] Implanted:Qty: 1 on 04/24/2023 by Marjan Robertson MD at [facility] 01/10/2025 [id number]-[id number] / / [id number] Procedures Procedure Name Priority Date/Time Associated Diagnosis Comments POCT LIPID PANEL Routine 08/26/2024 11:3 4 AM RETAIL MARKETING EXECUTIVE Lipid screening EGFR Routine 04/28/2019 5:23 AM CDT HEMOGLOBIN A1C Routine 04/27/2019 2:50 PM CDT from Last 3 Months or Most Recently Relevant to Health Maintenance Results * POCT lipid panel (08/26/2024 11:34 AM RETAIL MARKETING EXECUTIVE) Cholesterol, POC 154 mg/dL HDL, POC 30 mg/dL Triglycerides, POC 190 mg/dL LDL Cholesterol POC 86 mg/dL Chol/HDL Ratio, POC 2.8 Non-HDL Cholesterol, POC 124 mg/dL Cholesterol Total, POC 154 mg/dL Capillary blood 08/26/2024 1 1:34 AM RETAIL MARKETING EXECUTIVE Laly Israel NP POINT OF CARE TEST [...] mL/min/1.73m2 *Relative to young adult level If -Luxembourger multiply value by 1.16. Estimated glomerular filtration [...] ORDERABLES F inal Result Performing Organization Address [facility] de Phone Number MICHELLE VASQUEZ [address] [address] [facility] [place] [address] * (ABNORMAL) Hemoglobin A1c (04/27/2019 2:50 PM CDT) Hgb A1C 6.8(H) 4.0 - 5.6 % MICHELLE Estimated Average Glucose 148 mg/dL MICHELLE Comment: The ADA recommends reporting an estimated Average Glucose (eAG) with all Hemoglobin A1c results using the equation derived from a study of 507 normal and diabetic adults. Minority populations were underrepresented and children were not included. (Diabetes Care 31:1835-0401, 2008). The eAG is not equivalent to a fasting glucose. Blood specimen (specimen) 04/27/2019 2:50 PM CDT 04/27/2019 2:59 PM CDT Ramiro Maya MD LAB BLOOD ORDERABLES F inal Result Performing Organization Address [facility] de Phone Number MICHELLE VASQUEZ [address] [facility] [place] [address] from Last 3 Months or Most Recently Relevant to Health Maintenance Insurance ID[place] BL CHOICE PRF PPO [place] AETNA [facility] Advance Directives For more information, please contact: [phone] * Full Code (Latest Code Status on File) Date Activated Date Inactivated Comments 04/24/2023 11:35 AM 04/24/2023 5:19 PM * Full Code Date Activated Date Inactivated Comments 04/27/2019 11:34 AM 04/29/2019 3:15 AM * Full Code Date Activated Date Inactivated Comments 02/09/2018 6:19 PM 02/10/2018 2:29 PM Care Teams Behavioral Health Counselor Relationship Specialty Start Date End Date Lana Bailey NP [address] [place] [address] PCP - General Nurse Practitioner 10/30/21 [place] [id number] [address] Consulting Physician Neurology 04/28/19 [place] [address] [address] Consulting Physician Interventional Cardiology 04/28/19 [place] [address] [address] Consulting Physician Gastroenterology 04/28/19 [place] [address] [address] Surgeon Orthopedic Surgery 04/28/19
--- OUTSIDE RECORDS SUMMARY | 2025-02-17 13:54 | XMS_ITS | Encounter Summary ---
Author Organization [facility] Healthcare Address [address] [place] [address] Care Team Providers Care Pulpit Operator Name Role Phone No, Physician Primary Care Provider [phone] Encounter Details Date Type Department Care Team (Late st Contact Info) Description 04/16/2017 11:30 AM CDT Hospital Encounter [facility] Procedure Holding [address] [place] [address] Marjan Robertson MD [address] [place] [address] Social History Tobacco Use Types Packs/Day [...] and Family Once a week 04/28/2019 Attends Hinduism Services Never 04/28 Active Member of Clubs [...] on file Legal Sex Female 6:12 PM PRODUCTION HAND Gender Identity Not on file Sexual Orientation [...] Patient: TRISH PERKINS Service Date: 04/16/2017 Account: [id number] Room No: : 1960 Patient Type: [facility] Attend.: Marjan Robertson M.D. Admit Date: 04/16/2017 [...] chest pain, and at that time an MD was ruled out. 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 PHYSICAL EXAMINATION Basically she is afebrile. Heart [...] on filedocumented in this encounter Care Teams Pulpit Operator Relationship Specialty Start Date End Date No, Physician PCP - General 04/12/17 03/13/18 documented as of this encounter
--- OUTSIDE RECORDS SUMMARY | 2025-02-17 13:54 | XMS_ITS | Referral Summary ---
Author Organization [facility] Address [address] [place] [address] Care Team Providers Care Turnstile Collector Name Role Phone Galina LORENZO MD, David Singh Unavailable [phone] Marjan Robertson MD Unavailable [phone] Dangelo Brock MD Unavailable Ag Roblero MD, Chepe Meyers Unavailable [phone] Lana Bailey NP Primary Care Provider [phone] Encounters Date Type Department Care Team Description 01/01/2025 Telephone [facility] Medical Group Cardiology [address] [place] [address] Marjan Robertson MD Med Refill from Last 3 Months Allergies Active Allergy [...] by mouth nightly 30 tablet 04/28/20 19 05/06/2 029 Active aspirin 81 mg enteric coated [...] mg/mL pen injectorIndication s:Coronary artery disease involving klawock coronary artery of [place]lawock heart, unspecified whether angina present,Mixed hyperlipidemia Inject 1 mL (140 mg total) under the skin every 14 (fourteen) days 2 mL 11 09/11/19 Active ezetimibe (ZETIA) 10 mg tabletIndications: Coronary artery disease involving klawock coronary artery of klawock heart,Dyslipidemia Take 1 tablet (10 mg total) [...] 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 03/18/2018 Mixed [...] and Family Once a week 04/28/2019 Attends Hoahaoism Services Never 04/28 Active Member of Clubs [...] on file Legal Sex Female 6:12 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 Gender Identity Not on file Sexual Orientation Not on file Last Filed Vital Signs Vital Sign Reading Time Taken Comments Blood Pressure 124/60 08/26/2024 11:30 AM HABILITATION TRAINING SPECIALIST Pulse 65 08/26/2024 11:30 AM HABILITATION TRAINING SPECIALIST Temperature 36.7 C (98.1 F) 04/24/2023 8:31 AM CDT Respiratory Rate 18 04/24/2023 8:31 AM CDT Oxygen Saturation 95% 08/26/2024 11:30 AM HABILITATION TRAINING SPECIALIST Inhaled Oxygen Concentration - - Weight 80.7 kg (178 lb) 08/26/2024 11:30 AM HABILITATION TRAINING SPECIALIST Height 160 cm (5' 3) 08/26/2024 11:30 AM HABILITATION TRAINING SPECIALIST Body Mass Index 31.53 08/26/2024 11:30 AM HABILITATION TRAINING SPECIALIST Plan of Treatment Not on file Medical Devices Implanted Type Area Laboratory Secretary Device Identifier Shelf Expiration Date Model / Serial / Lot [employer] Device Closure Vascade Od5 Fr Femoral Artery [id number] - [id number] Implanted:Qty: 1 on 04/24/2023 by Marjan Robertson MD at [facility] [employer] [facility] 01/10/2025 700-500DX-0 [id number] / / [id number] Procedures Procedure Name Priority Date/Time Associated Diagnosis Comments POCT LIPID PANEL Routine 08/26/2024 11:3 4 AM HABILITATION TRAINING SPECIALIST Lipid screening EGFR Routine 04/28/2019 5:23 AM CDT HEMOGLOBIN A1C Routine 04/27/2019 2:50 PM CDT from Last 3 Months or Most Recently Relevant to Health Maintenance Results * POCT lipid panel (08/26/2024 11:34 AM HABILITATION TRAINING SPECIALIST) Cholesterol, POC 154 mg/dL HDL, POC 30 mg/dL Triglycerides, POC 190 mg/dL LDL Cholesterol POC 86 mg/dL Chol/HDL Ratio, POC 2.8 Non-HDL Cholesterol, POC 124 mg/dL Cholesterol Total, POC 154 mg/dL Capillary blood 08/26/2024 1 1:34 AM HABILITATION TRAINING SPECIALIST Laly Israel NP POINT OF CARE TEST [...] mL/min/1.73m2 *Relative to young adult level If -Eritrean multiply value by 1.16. Estimated glomerular filtration [...] ORDERABLES F inal Result Performing Organization Address City/[facility] Co de Phone Number MICHELLE VASQUEZ [address] [place] [address] * (ABNORMAL) Hemoglobin A1c (04/27/2019 2:50 PM CDT) Hgb A1C 6.8(H) 4.0 - 5.6 % MICHELLE Estimated Average Glucose 148 mg/dL MICHELLE Comment: The ADA recommends reporting an estimated Average Glucose (eAG) with all Hemoglobin A1c results using the equation derived from a study of 507 normal and diabetic adults. Minority populations were underrepresented and children were not included. (Diabetes Care 31:9139-8374, 2008). The eAG is not equivalent to a fasting glucose. Blood specimen (specimen) 04/27/2019 2:50 PM CDT 04/27/2019 2:59 PM CDT Ramiro Maya MD LAB BLOOD ORDERABLES F inal Result MICHELLE VASQUEZ [address] [place] [address] from Last 3 Months or Most Recently Relevant to Health Maintenance Insurance [place] [facility] [place] Advance Directives For more information, please contact: [phone] * Full Code (Latest Code Status on File) Date Activated Date Inactivated Comments 04/24/2023 11:35 AM 04/24/2023 5:19 PM * Full Code Date Activated Date Inactivated Comments 04/27/2019 11:34 AM 04/29/2019 3:15 AM * Full Code Date Activated Date Inactivated Comments 02/09/2018 6:19 PM 02/10/2018 2:29 PM Care Teams Turnstile Collector Relationship Specialty Start Date End Date Lana Bailey, FILTER WASHER [address] [place] [address] PCP - General Nurse Practitioner 10/30/21 [place] [address] [facility] [address], [place] [id number] Consulting Physician Neurology 04/28/19 [place] [address] [facility] [address], [place] [id number] Consulting Physician Interventional Cardiology 04/28/19 [place] [address] [facility] [address] [place] [address] Consulting Physician Gastroenterology 04/28/19 [place] [address] [address] Surgeon Orthopedic Surgery 04/28/19
== END 2025-02-17 11:34 | disposition home or self-care (01) ==
LOC: CHSIMG 11:36
PROVIDERS: PCP Nurse Practitioner Family; Visit Provider Nurse Practitioner Family
DX: M25.552 Pain in left hip (principal)
CPT/HCPCS: 73502

== ENCOUNTER 2025-06-17 10:49 | Outpatient (CLI) | payer OTHER, SELFPAY ==
[2025-06-17 11:10] LABS: Hematocrit 47.4 % (35.0-49.0); Hemoglobin 14.7 g/dL (12.0-15.0); Immature Granulocyte Percent A 0.9 % (0.0-0.0); Lymphocytes Absolute Auto 4.53 K/mm3 (1.10-4.50); Mean Corpuscular HGB Conc 31.0 g/dL (32-36); Mean Corpuscular Hemoglobin 29.5 pg (27.0-31.0); Mean Corpuscular Volume 95.2 fL (78.0-102.0); Nucleated Red Blood Cells Absolute Auto 0.00 K/mm3 (0.00-0.00); Nucleated Red Blood Cells Perc 0.0 % (0-0.0); Platelet Count Result 360 K/mm3 (150-420); Red Blood Count 4.98 M/mm3 (4.20-5.40); White Blood Count 11.3 K/mm3 (4.8-10.8)
[2025-06-17 11:34] LABS: MALB Creatinine Ratio 62.1 mg/g (0-30)
[2025-06-17 11:40] LABS: Hemoglobin A1C 6.7 % (<5.7)
[2025-06-17 11:47] LABS: Iron 106 ug/dL (37-170)
[2025-06-17 11:49] LABS: Alanine Aminotransferase 17 U/L (6-35); Albumin Level 4.6 g/dL (3.5-5.1); Alkaline Phosphatase 94 U/L (38-126); Anion Gap 13 mmol/L (4-12); Aspartate Amino Transferase 23 U/L (14-36); Bilirubin,Total 0.7 mg/dL (0.2-1.3); Blood Urea Nitrogen 13 mg/dL (7-17); Calcium 10.2 mg/dL (8.4-10.2); Carbon Dioxide 25 mmol/L (22-30); Chloride 108 mmol/L (98-107); Cholesterol 159 mg/dL (0-200); Estimated Glomerular Filt Rate > 60; Glucose 112 mg/dL (65-110); HDL Direct 39 mg/dL; Magnesium 2.0 mg/dL (1.6-2.3); Osmolality Calculated 303 mOsm/kg (285-295); Potassium 4.8 mmol/L (3.4-5.0); Sodium 146 mmol/L (137-145); Total Protein 9.0 g/dL (6.3-8.2); Triglycerides 249 mg/dL (<150)
[2025-06-17 11:57] LABS: Percent Iron Saturation 38 % (20-50)
[2025-06-17 12:23] LABS: Ferritin 237.00 ng/mL (11.1-264)
== END 2025-06-17 10:50 | disposition home or self-care (01) ==
LOC: CHSLAB 10:50
PROVIDERS: PCP Nurse Practitioner Family; Visit Provider Nurse Practitioner Family
DX: I10 Essential (primary) hypertension (principal); Z79.899 Other long term (current) drug therapy; E83.42 Hypomagnesemia; E13.9 Other specified diabetes mellitus without complications; Z13.6 Encounter for screening for cardiovascular disorders; E78.5 Hyperlipidemia, unspecified; D64.9 Anemia, unspecified
CPT/HCPCS: 36415; 80053; 80061; 82043; 82306; 82728; 83036; 83540; 83550; 83735; 85025